=== PATIENT | male | born 1975 | race Caucasian/White ===

== ENCOUNTER 2020-06-22 21:45 | Inpatient (IN) | payer OTHER ==
--- OUTSIDE RECORDS SUMMARY | 2020-06-22 21:57 | XMS ---
:1975 Author Organization [facility] Support Name Relationship Address Phone [employer] Unavailable [address] [phone] [place] [address] RICARDO WOODS [address] [place] [address] Re-disclosure Warning The records that you are about to access may contain information from federally- assisted alcohol or drug abuse programs. If such information is present, then the following federally mandated warning applies: This information has been disclosed to you from records protected by federal confidentiality rules (42 CFR part 2). The federal rules prohibit you from making any further disclosure of this information unless further disclosure is expressly permitted by the written consent of the person to whom it pertains or as otherwise permitted by 42 CFR part 2. A general authorization for the release of medical or other information is NOT sufficient for this purpose. The Federal rules restrict any use of the information to criminally investigate or prosecute any alcohol or drug abuse patient.The records that you are about to access may contain highly sensitive health information, the redisclosure of which is protected by Article 27-F of the [facility] Public Health law. If you continue you may haveaccess to information: Regarding HIV / AIDS; Provided by facilities licensed or operated by the [facility] Office of Mental Health; or Provided by the [facility] Office for People With Developmental Disabilities. If such information is present, then the following [facility] mandated warning applies: This information has been disclosed to you from confidential records which are protected by state law. State law prohibits you from making any further disclosure of this information without the specific written consent of the person to whom it pertains, or as otherwise permitted by law. Any unauthorized further disclosure in violation of state law may result in a fine or correction sentence or both. A general authorization for the release of medical or other information is NOT sufficient authorization for further disclosure. Insurance Providers Payer name Policy type Policy ID Covered Covered alliance party's Policy P scooter / Coverage alliance party ID relationship to [employer] type giraldo [facility] [id number] MEDICAID COMM PLAN
[2020-06-22] MEDS ORDERED: KETOROLAC TROMETHAMINE 30 MG/1 ML VIAL IVPUSH ONE (22:41)
[2020-06-22] MEDS ORDERED: CEFAZOLIN 1 GM in DEXTROSE 5%-WATER - 50 ML IVPB ONE (22:47)
[2020-06-22] MEDS ORDERED: VANCOMYCIN 1 GM in D5W (PRE-DOCKED) 1,000 MG/250 ML IVPB ONE (22:49)
[2020-06-22] MEDS ORDERED: SODIUM CHLORIDE 0.9% 500 ML INFUS.BAG IV ONE (22:49)
[2020-06-22 23:00] LABS: BASO % 0.8 % (0-2.0); EOS % 0.8 % (0-4.5); HEMATOCRIT 45.8 % (35.4-49); HEMOGLOBIN 15.7 GM/dL (11.7-16.9); MCH 30.1 pg (25.7-33.7); MCHC 34.3 g/dl (32.0-35.9); MEAN CELL VOLUME 87.7 fl (80-96); MEAN PLT VOLUME 12.1 fl (7.5-11.1); MONO % 5.9 % (3.8-10.2); NEUT % 74.5 % (42.8-82.8); PLATELET COUNT 119 K/MM3 (134-434); RBC 5.22 M/mm3 (4.00-5.60); RDW 13.2 % (11.9-15.9); WHITE BLOOD COUNT 14.9 K/mm3 (4.0-10.0)
--- NOTE | 2020-06-22 23:10 | PDOC ---
History of Present Illness - General Chief Complaint: Abscess Boil Stated Complaint: WOUND History Source: Patient Exam Limitations: No Limitations - History of Present Illness Initial Comments: 06/22/20 23:04 Patient is a 45-year-old male with no past medical history here with complaints of right groin pain x7 days. The pain 8/10 sharp which is aggravated with walking, with no alleviating factor. Took Tramadol today with minimal relief. States he has had similar times in the past and was admitted for an abscess on his buttocks and near his groin in 2012. Patient's endorses fever yesterday, none today. Patient states he is having difficulty walking due to the pain. Denies nausea, vomiting. PMHX: as above PSOCHX: (+) cig ALL: NKDA GENERAL/CONSTITUTIONAL: [No fever or chills. No weakness. No weight change.] HEAD, EYES, EARS, NOSE AND THROAT: [No change in vision. No ear pain or di scharge. No sore throat.] CARDIOVASCULAR: [No chest pain or shortness of breath.] RESPIRATORY: [No cough, wheezing, or hemoptysis.] GASTROINTESTINAL: [No nausea, vomiting, diarrhea or constipation. No rectal bleeding.] GENITOURINARY: [No dysuria, frequency, or change in urination.] MUSCULOSKELETAL: [No joint or muscle swelling or pain. No neck or back pain.] SKIN AND BREASTS: [No rash or easy bruising.] NEUROLOGIC: [No headache, vertigo, loss of consciousness, or loss of sensation.] PSYCHIATRIC: [No depression or anxiety.] ENDOCRINE: [No increased thirst. No abnormal weight change.] HEMATOLOGIC/LYMPHATIC: [No anemia, easy bleeding, or history of blood clots.] ALLERGIC/IMMUNOLOGIC: [No hives or skin allergy. No latex allergy.] GENERAL: [The patient is awake, alert, and fully oriented, in moderate distress.] HEAD: [Normal with no signs of trauma.] EYES: [Pupils equal, round and reactive to light, extraocular movements intact, sclera anicteric, conjunctiva clear.] ENT: [Ears normal, nares patent, oropharynx clear without exudates. Moist mucous membranes.] NECK: [Normal range of motion, supple without lymphadenopathy, JVD, or masses.] LUNGS: [Breath sounds equal, clear to auscultation bilaterally. No wheezes, and no crackles.] HEART: [Regular rate and rhythm, normal S1 and S2 without murmur, rub.] ABDOMEN: [Soft, nontender, normoactive bowel sounds. No guarding, no rebound. No masses.] : Tender firm mass in the right groin, tender nodes in the right groin, erythema from medial aspect mid thigh extending to scrotal on the right EXTREMITIES: [Normal range of motion, no edema. No clubbing or cyanosis. No cords, erythema, or tenderness.] NEUROLOGICAL: [Cranial nerves II through XII grossly intact. Normal speech, normal gait.] PSYCH: [Normal mood, normal affect.] SKIN: [Warmth, (+) erythema medial aspect thigh to the groin, Dry, normal turgor, no rashes or lesions noted.] Past History - Medical History Allergies/Adverse Reactions: Allergies Allergy/AdvReac Type Severity Reaction Status Date / Time No Known Allergies Allergy Verified 06/22/20 21:49 Home Medications: Ambulatory Orders Clindamycin [Cleocin -] 300 mg PO TID #0 capsule 06/13/13 Oxycodone HCl/Acetaminophen [Percocet 5-325 mg Tablet -] 1 tab PO Q4H #20 tablet 06/13/13 COPD: No Diabetes: Yes - Psycho-Social/Smoking History Smoking Status: Yes Smoking History: Never smoked Number of Cigarettes Smoked Daily: 7 'Breaking Loose' booklet given: 06/11/13 - Substance Abuse Hx (Audit-C & DAST Scrn) How often the patient has a drink containing alcohol: Never Score: In Men: 4 or > Positive; In Women: 3 or > Positive: 0 Screen Result (Pos requires Nsg. Audit-10AR): Negative In the last yr the pt used illegal drug/Rx for NonMed reason: No Score: Yes response is considered Positive: 0 Screen Result (Positive result requires Nsg. DAST-10): Negative *Physical Exam - Vital Signs Last Vital Signs Temp Pulse Resp BP Pulse Ox 98.7 F 81 18 172/88 H 98 06/22/20 21:46 06/22/20 21:46 06/22/20 21:46 06/22/20 21:46 06/22/20 21:46 ED Treatment Course - LABORATORY CBC & Chemistry Diagram: 06/22/20 22:50 06/22/20 22:50 - RADIOLOGY Radiology Studies Ordered: Category Date Time Status PELVIS CT WITH CONTRAST [CT] Stat CT Scan 06/22/20 22:42 Ordered Medical Decision Making - Medical Decision Making 06/22/20 23:04 Patient is a 45-year-old male with no past medical history here with complaints of right groin pain x7 days, now pain 8/10. States he has had similar times in the past and was admitted for an abscess on his buttocks and near his groin in 2012. Patient's endorses fever yesterday, none today. Patient states he is having difficulty walking due to the pain. Denies nausea, vomiting. Patient has abscess to the right groin with surrounding cellulitis extending from the mid thigh up to the testicle on the right concerning for Kellie's. labs, Antibiotic, IV fluids, pain med, Admit to the hospital. 06/22/20 23:31 Patient endorsed to the overnight team pending disposition. Discharge - Discharge Information Problems reviewed: Yes Clinical Impression/Diagnosis: Abscess or cellulitis of groin Condition: Stable - Follow up/Referral - Patient Discharge Instructions - Post Discharge Activity
[2020-06-22 23:27] LABS: ALBUMIN 3.6 g/dl (3.4-5.0); BILIRUBIN,TOTAL 0.4 mg/dL (0.2-1); BLOOD UREA NITROGEN 10.9 mg/dL (7-18); POTASSIUM 3.8 mmol/L (3.5-5.1); TOT PROT 7.4 g/dl (6.4-8.2)
[2020-06-22] MEDS ORDERED: KETOROLAC TROMETHAMINE 30 MG/1 ML VIAL ONE (23:39)
[2020-06-22] MEDS ORDERED: VANCOMYCIN 1 GRAM (PRE-DOCKED) 1,000 MG/250 ML BAG IVPB ONE (23:39)
[2020-06-22] MEDS ORDERED: CEFAZOLIN 1 GM/D5W 1 GM/50 ML BAG ONE (23:39)
--- NOTE | 2020-06-22 23:48 | PDOC ---
*Physical Exam - Vital Signs Last Vital Signs Temp Pulse Resp BP Pulse Ox 98.1 F 72 20 150/93 98 06/23/20 02:49 06/23/20 02:49 06/23/20 02:49 06/23/20 02:49 06/23/20 02:49 <Lynette Barney - Last Filed: 06/23/20 03:40> - Vital Signs Last Vital Signs Temp Pulse Resp BP Pulse Ox 98.7 F 81 18 172/88 H 98 06/22/20 21:46 06/22/20 21:46 06/22/20 21:46 06/22/20 21:46 06/22/20 21:46 <Arnol Fox - Last Filed: 06/23/20 04:44> ED Treatment Course - LABORATORY CBC & Chemistry Diagram: 06/22/20 22:50 06/22/20 22:50 - ADDITIONAL ORDERS Additional order review: Laboratory Results 06/22/20 22:50 Sodium 134 L Potassium 3.8 Chloride 98 Carbon Dioxide 29 Anion Gap 6 L BUN 10.9 Creatinine 1.0 Est GFR (CKD-EPI)AfAm 104.15 Est GFR (CKD-EPI)NonAf 89.86 Random Glucose 360 H Calcium 9.0 Total Bilirubin 0.4 AST 12 L ALT 27 Alkaline Phosphatase 176 H C-Reactive Protein 5.9 H Total Protein 7.4 Albumin 3.6 06/22/20 22:50 RBC 5.22 MCV 87.7 MCHC 34.3 RDW 13.2 MPV 12.1 H Neutrophils % 74.5 Lymphocytes % 18.0 Monocytes % 5.9 Eosinophils % 0.8 Basophils % 0.8 D - Medications Given in the ED: ED Medications Discontinued Medications Generic Name Dose Route Start Last Admin Trade Name Freq PRN Reason Stop Dose Admin Cefazolin Sodium 1 gm/ 50 mls @ 100 mls/hr 06/22/20 22:47 06/22/20 23:59 Dextrose IVPB 06/22/20 23:16 100 mls/hr ONCE ONE Administration Ketorolac Tromethamine 30 mg 06/22/20 22:41 06/22/20 23:59 Toradol Injection - IVPUSH 06/22/20 22:42 30 mg ONCE ONE Administration Sodium Chloride 1,000 ml 06/22/20 22:49 06/22/20 23:59 Normal Saline - IV 06/22/20 22:50 1,000 ml ONCE ONE Administration Vancomycin HCl 1,000 mg 06/22/20 22:49 06/22/20 23:59 Vancomycin (Pre-Docked) IVPB 06/22/20 22:50 1,000 mg ONCE ONE Administration Protocol <Kinza Barneyreen - Last Filed: 06/23/20 03:40> - LABORATORY CBC & Chemistry Diagram: 06/22/20 22:50 06/22/20 22:50 - ADDITIONAL ORDERS Additional order review: Laboratory Results 06/22/20 22:50 Sodium 134 L Potassium 3.8 Chloride 98 Carbon Dioxide 29 Anion Gap 6 L BUN 10.9 Creatinine 1.0 Est GFR (CKD-EPI)AfAm 104.15 Est GFR (CKD-EPI)NonAf 89.86 Random Glucose 360 H Calcium 8.7 Total Bilirubin 0.4 AST 12 L ALT 27 Alkaline Phosphatase 176 H Total Protein 7.4 Albumin 3.6 06/22/20 22:50 RBC 5.22 MCV 87.7 MCHC 34.3 RDW 13.2 MPV 12.1 H Neutrophils % 74.5 Lymphocytes % 18.0 Monocytes % 5.9 Eosinophils % 0.8 Basophils % 0.8 D <Arnol Fox - Last Filed: 06/23/20 04:44> Medical Decision Making - Medical Decision Making 06/23/20 03:13 Patient Name: MONIQUE WOODS THIS IS A PRELIMINARY REPORT DATE OF SERVICE: 2020-06-23 00:16:09 IMAGES: [id number] EXAM: CT PELVIS WITHOUT CONTRAST AND CT PELVIS WITH CONTRAST HISTORY: Abscess. 45-Year-Old Male Poorly Controlled Diabetes Assess For a Right Groin Peroneal Infection Abscess COMPARISON: None. CONTRAST: 100 mL Omnipaque 350 intravenous contrast TECHNIQUE: Axial CT scan images of the pelvis are obtained before and after the administration of intravenous contrast. FINDINGS: Limited nondiagnostic precontrast and postcontrast axial images of the pelvis are obtained. Right kidney lower pole 5 mm nonobstructing nephrolithiasis is incompletely included within the cdpcv-fl-hxgk on axial image 1. Diverticulosis. Mild nonspecific lower rectal wall thickening most likely due to mild infectious or inflammatory proctitis. Sharath cified granulomas in the prostate. Moderate abnormal subcutaneous edema and fluid in the right groin and right perineum is incompletely included within the mlpum-ps-vcsc suspicious for phlegmon infect ion and an abscess of the perineum outside the fxlrc-ut-ycvl cannot be excluded. Bilateral groin lymph nodes may be reactive. Degenerative disc disease in the lower lumbar spine. Degenerative joint disease of the lower lumbar facets. Spinal canal and neural foramen narrowing in the lower lumbar spine. IMPRESSION: Moderate abnormal subcutaneous edema and fluid in the right groin and right perineum is incompletely included within the lsycy-no-jukp suspicious for phlegmon infection. Mild nonspecific lower rectal wall thickening most likely due to mild infectious or inflammatory proctitis. Limited nondiagnostic precontrast and postcontrast CT scan images of the pelvis with no routine coronal or sagittal images provided for interpretation. If the missing sagittal and coronal images of the noncontrast CT scan of the pelvis and with contrast CT scan of the pelvis are provided in the future then a addendum to this report can be made. Abscess of the perineum outside the wnjnx-it-mvdp or evidence of necrotizing fasciitis from gas-forming microorganisms outside the cinhj-qg-cyhb cannot be excluded. If there is a clinical concern for a drainable abscess fluid collection or other infection in the lower midline pelvis outside the hbojk-cb-aonn then further evaluation and workup with follow-up routine CT Lower Pelvis Including The Midline Lower Pelvis And Proximal Thighs Including The Soft Tissue Down To Below The Level Of The Air Gap Seen On The Stunt Double Image Between The Legs excluded on the this exam may be needed. 06/23/20 03:41 Pt will be admitted to med/surg; he will get a more complete CT scan as an inpatient. <Lynette Barney - Last Filed: 06/23/20 03:40> - Medical Decision Making 06/23/20 01:23 45M with no PMH p/w right groin pain x7 days. Informed that there was abscess in right groin with surrounding cellulitis from mid thigh to right testicle. Pending CT abd/pevlis to eval for Kellie's. Signed out from [facility]. Likely will be admitted to m/s. 06/23/20 04:[address] Admitted to m/s. <Arnol Fox - Last Filed: 06/23/20 04:44> Discharge <Lynette aBrney - Last Filed: 06/23/20 03:40> - Discharge Information Problems reviewed: Yes - Admission Yes <Arnol Fox - Last Filed: 06/23/20 04:44> - Discharge Information Clinical Impression/Diagnosis: Abscess or cellulitis of groin Condition: Stable
[2020-06-23 00:09] LABS: ERYTHROCYTE SEDIMENTATION RATE 13 mm/hr (0-10)
[2020-06-23 03:29] LABS: URINE APPEARANCE CLEAR; URINE BILIRUBIN NEGATIVE (NEGATIVE); URINE COLOR YELLOW; URINE KETONE NEGATIVE (NEGATIVE); URINE PROTEIN NEGATIVE (NEGATIVE)
[2020-06-23 03:30] LABS: URINE LEUK ESTERASE NEGATIVE (NEGATIVE); URINE NITRITE NEGATIVE (NEGATIVE); URINE UROBILINOGEN 0.2 mg/dL (0.2-1.0)
--- NOTE | 2020-06-23 04:17 | PN ---
Teaching Attending Note Name of Resident: Jose Antonio López ATTENDING PHYSICIAN STATEMENT I saw and evaluated the patient. I reviewed the resident's note and discussed the case with the resident. I agree with the resident's findings and plan as documented. SUBJECTIVE: Patient is a 45 year old man with a PMH of Groin and Buttock abscess who pr esents to the ER with complaints of right groin pain for 7 days. The pain is 8/10, sharp and is aggravated with walking, with no alleviating factor. Took Tramadol today with minimal relief. States he has had similar times in the past and was admitted for an abscess on his buttocks and near his groin in 2012. Patient had fever yesterday and is having difficulty walking due to the pain. Patient denies chest pain, shortness of breath, abdominal pain, headache, palpitations, dizziness, chills, nausea, vomiting, diarrhea, constipation, dysuria, frequency, urgency, melena, hematochezia or hematuria. Denies alcohol, tobacco or illicit drug use. No sick contacts or recent travels. Family history is unremarkable - no FH of DM. OBJECTIVE: Alert Vital Signs Period Temp Pulse Resp BP Sys/Anna Pulse Ox Last 24 Hr 98.1 F-98.7 F 72-81 18-20 150-172/88-93 98-98 HEENT: No Jaundice, eye redness or discharge, PERRLA, EOMI. Normocephalic, atraumatic. External ears are normal and hearing is grossly intact. No nasal discharge. Neck: Supple, nontender. No palpable adenopathy or thyromegaly. No JVD Chest: Good effort. Clear to auscultation and percussion. Heart: Regular. No S3, rub or murmur Abdomen: Not distended, soft, nontender and no HSM. No rebound or guarding. Normal bowel sounds. Ext: Peripheral pulses intact. No leg edema. Abscess in right groin with surrounding cellulitis from mid thigh to right testicle. Skin: Warm and dry. No petechiae, rash or ecchymosis. Neuro: Alert. Oriented x3. CN 2-12 grossly intact. Sensation grossly intact in all four extremities and DTR are symmetric. Psych: Appropriate mood and affect. Good insight. Home Medications Medication Instructions Recorded Clindamycin [Cleocin -] 300 mg PO TID #0 capsule 06/13/13 Oxycodone HCl/Acetaminophen 1 tab PO Q4H #20 tablet 06/13/13 [Percocet 5-325 mg Tablet -] Abnormal Lab Results 06/22/20 06/22/20 06/23/20 22:50 22:50 02:22 WBC 14.9 H Plt Count 119 L D MPV 12.1 H Absolute Neuts (auto) 11.1 H ESR 13 H Sodium 134 L Anion Gap 6 L Random Glucose 360 H AST 12 L Alkaline Phosphatase 176 H C-Reactive Protein 5.9 H Ur Specific [place] 1.063 H Current Medications Generic Name Dose Route Start Last Admin Trade Name Freq PRN Reason Stop Dose Admin Enoxaparin Sodium 40 mg 06/23/20 10:00 Lovenox - SQ DAILY TAWANDA ASSESSMENT AND PLAN: 1. Scrotal cellulitis/Groin abscess/New onset DM - CT scan of pelvis with IV co ntrast showed "Moderate abnormal subcutaneous edema and fluid in the right groin and right perineum is incompletely included within the jhwac-zz-pyhe suspicious for phlegmon infection. Mild nonspecific lower rectal wall thickening most likely due to mild infectious or inflammatory proctitis." CXR shows cardiomegaly with no evidence of acute lung disease. Viral testing for COVID-19 ordered and patient placed on airborne, droplet and contact isolation. ER staff prescribed IV Ancef, Ketorolac, IV Vancomycin and IV NS for the patient. 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 Consult ID/Surgery/Urology. Hyponatremia likely partly due to hyperglycemia. Will limit free water intake, give IV KCL before correcting hyperglycemia. EKG shows NSR at 76/minute and QTc 438 with no significant acute ischemic ST-T wave changes. Initial troponin is negative. Will get HbA1c, lipid profile and implement sliding scale insulin regimen. Provide comprehensive diabetes care with patient teaching and counseling about the importance of adherence to prescribed diabetes regimen, euglycemia, eye care and foot care. Consult Endocrine. Monitor BP closely since he may have undiagnosed hypertension. Will continue comprehensive care for all of patients comorbid conditions. 2. Obesity Counseled on the risks associated with obesity. Will provide patient all the necessary assistance, counseling and positive reinforcement to facilitate weight loss. Consult truck driver supervisor. 3. DVT prophylaxis - Lovenox 40 mg SQ q 24 hours. 4. Advance directives - Full code
--- NOTE | 2020-06-23 04:44 | HP ---
CHIEF COMPLAINT: Scrotal cellulitis PCP: denies HISTORY OF PRESENT ILLNESS: Patient is a 45 year old man without any past medical history who presents to the ER with complaints of kim pain for 7 days. The pain is 8/10 and sharp in nature. The patient reports the pain to be worse when walking and the pain is mildly relieved with tylenol. The patient reported having this same issue in 2012 where he received surgery for I&D for an abscess in his right buttock and kim. The patient endorses having a fever yesterday but cannot recall the temperature. The patient denies chest pain, shortness of breath, diaphoresis, dysuria, hematuria, diarrhea, or numbness/tingling in upper or lower extremities. The patient denies any knowledge of any past medical history, infections, or having any physicians. Recent Travel: denies PAST MEDICAL HISTORY: denies PAST SURGICAL HISTORY: surgical debridement of abscess on right buttock and groin 8 years ago Social History: Smokin cig/day for 25 years Alcohol: denies Drugs: denies Allergies No Known Allergies Allergy (Verified 06/22/20 21:49) HOME MEDICATIONS: Home Medications Medication Instructions Recorded Clindamycin [Cleocin -] 300 mg PO TID #0 capsule 06/13/13 Oxycodone HCl/Acetaminophen 1 tab PO Q4H #20 tablet 06/13/13 [Percocet 5-325 mg Tablet -] REVIEW OF SYSTEMS CONSTITUTIONAL: Absent: fever, chills, diaphoresis, generalized weakness, malaise, loss of appetite, weight change HEENT: Absent: rhinorrhea, nasal congestion, throat pain, throat swelling, difficulty swallowing, mouth swelling, ear pain, eye pain, visual changes CARDIOVASCULAR: Absent: chest pain, syncope, palpitations, irregular heart rate, lightheadedness, peripheral edema RESPIRATORY: Absent: cough, shortness of breath, dyspnea with exertion, orthopnea, wheezing, stridor, hemoptysis GASTROINTESTINAL: Absent: abdominal pain, abdominal distension, nausea, vomiting, diarrhea, constipation, melena, hematochezia GENITOURINARY: Scrotal and perenial pain with active erythema and cellulitis PHYSICAL EXAMINATION Vital Signs - 24 hr 06/22/20 06/23/20 21:46 02:49 Temperature 98.7 F 98.1 F Pulse Rate 81 Pulse Rate [ 72 Left Radial] Respiratory 18 20 Rate Blood Pressure 172/88 H Blood Pressure 150/93 [Left Arm] O2 Sat by Pulse 98 98 Oximetry (%) GENERAL: Awake, alert, and fully oriented, in no acute distress. HEAD: Normal with no signs of trauma. LUNGS: Breath sounds equal, clear to auscultation bilaterally. No wheezes, and no crackles. No accessory muscle use. HEART: Regular rate and rhythm, normal S1 and S2 without murmur, rub or gallop. ABDOMEN: Soft, nontender, not distended, normoactive bowel sounds, no guarding, no rebound, no masses. No hepatomegaly or splenomegaly. LOWER EXTREMITIES: 2+ pulses, warm, well-perfused. No calf tenderness. No peripheral edema. : Scrotal and perenial pain with active erythema and cellulitis Laboratory Results - last 24 hr 06/22/20 06/22/20 06/23/20 22:50 22:50 02:22 WBC 14.9 H RBC 5.22 Hgb 15.7 Hct 45.8 MCV 87.7 MCH 30.1 MCHC 34.3 RDW 13.2 Plt Count 119 L D MPV 12.1 H Absolute Neuts (auto) 11.1 H Neutrophils % 74.5 Lymphocytes % 18.0 Monocytes % 5.9 Eosinophils % 0.8 Basophils % 0.8 D Nucleated RBC % 0 ESR 13 H Sodium 134 L Potassium 3.8 Chloride 98 Carbon Dioxide 29 Anion Gap 6 L BUN 10.9 Creatinine 1.0 Est GFR (CKD-EPI)AfAm 104.15 Est GFR (CKD-EPI)NonAf 89.86 Random Glucose 360 H Calcium 9.0 Total Bilirubin 0.4 AST 12 L ALT 27 Alkaline Phosphatase 176 H C-Reactive Protein 5.9 H Total Protein 7.4 Albumin 3.6 Urine Color Yellow Urine Appearance Clear Urine pH 5.0 Ur Specific [place] 1.063 H Urine Protein Negative Urine Glucose (UA) >=1000 mg/dl Urine Ketones Negative Urine Blood Negative Urine Nitrite Negative Urine Bilirubin Negative Urine Urobilinogen 0.2 Ur Leukocyte Esterase Negative ASSESSMENT/PLAN: Patient is a 45 year old man without any past medical history who presents to the ER with complaints of ikm pain for 7 days. #Cellulitis of the scrotum and perenium - Elevated inflamatory markers and white blood cell count is in relation to the inflammation/infection of the scrotal sac and perenium - Patient will be treated with emperic antibiotics zosyn and vancomycin) this will be the second dose with the first being in the emergency department - further antibiotic management of the cellulitis will be managed with infectious disease consultation (Dr. Santillan) - the area should be irrigated and debrided - will consult surgery (Dr. Loja) #Undiagnosed type 2 diabetes - A1C - will need to follow up with PCP after discharge - protein to creat ratio has been ordered. to see if patient can be started on JAMEEL due to diabetes #Hypertension - Will continually monitor vitals for optimal BP management - LIPID panel - will watch BP trending - Assess need to start lisinopril after Protein:Cr come back - check for proteinuria #FEN - IVF normal saline - low sodium diet #DVT ppx Lovenox Sq Family Medical History Family History: As Documented Visit type - Emergency Visit Emergency Visit: Yes ED Registration Date: 06/23/20 Care time: The patient presented to the Emergency Department on the above date and was hospitalized for further evaluation of their emergent condition. - New Patient This patient is new to me today: No - Critical Care Critical Care patient: No ATTENDING PHYSICIAN STATEMENT I saw and evaluated the patient. I reviewed the resident's note and discussed the case with the resident. I agree with the resident's findings and plan as documented. SUBJECTIVE: OBJECTIVE: ASSESSMENT AND PLAN:
--- OUTSIDE RECORDS SUMMARY | 2020-06-23 04:48 | XMS ---
:1975 [facility] Support Name Relationship Address Phone [employer] Unavailable [address] [phone] [place] [address] RICARDO WOODS [address] [place] [address] Re-disclosure Warning The records that you are [...] is protected by Article 27-F of the [facility] Public Health law. If you continue you may haveaccess to information: Regarding HIV / AIDS; Provided by facilities licensed or operated by the [facility] Office of Mental Health; or Provided by the [facility] Office for People With Developmental Disabilities. If such information is present, then the following [facility] mandated warning applies: This information has [...] law may result in a fine or detention sentence or both. A general authorization for the release of medical or other information is NOT sufficient authorization for further disclosure. Insurance Providers Payer name Policy type Policy ID Covered Covered republican's Policy P scooter / Coverage republican ID relationship to Giraldo [employer] ormation type giraldo [facility] [id number] 1 MEDICAID COMM PLAN
[2020-06-23] MEDS ORDERED: VANCOMYCIN 1 GM in D5W (PRE-DOCKED) 1,000 MG/250 ML IVPB ONE (06:30)
[2020-06-23] MEDS ORDERED: PIPERACILLIN/TAZOB 4.5 GM 4.5 GM/100 ML BAG IVPB ONE (06:37)
[2020-06-23] MEDS: PIPERACILLIN/TAZOB 4.5 GM 4.5 GM in DEXTROSE 5%-WATER 100 ML IVPB SCH ×4 (06:44→18:46)
[2020-06-23] MEDS: INSULIN SLIDING SCALE (NOVOLOG) 1 VIAL SQ SCH ×4 (07:45→22:54)
[2020-06-23] MEDS ORDERED: PIPERACILLIN/TAZOB 2.25 GM 2.25 GM in DEXTROSE 5%-WATER - 50 ML IVPB ONE (09:00)
[2020-06-23] MEDS ORDERED: VANCOMYCIN HCL 1,500 MG in DEXTROSE 5%-WATER - 500 ML IVPB ONE ×2 (10:00→10:45)
[2020-06-23] MEDS: ENOXAPARIN NA (PORCINE) 40 MG/0.4 ML DISP.SYRIN SQ SCH (10:38)
--- NOTE | 2020-06-23 10:43 | CON.ID ---
Consult Consult Specialty:: infectious disease Referred by:: hospitalist service Reason for Consultation:: groin pain - History of Present Illness Chief Complaint: groin pain for 7 days History of Present Illness: 45 yo man admitted overnight via ER he presents with oe week of worsening right groin pain- started as a pimple and has gotten worse no fevers or chills tried acetominophen for pain no diarrhea no cough no sob nodifficulty urinating had an episode 7 years ago with a right thigh and buttock abscess- no cultures sent at that time has not recurred since denies diabetes pelvic ct in ED- no air noted +soft tissue swelling - History Source History Provided By: Patient, Medical Record Limitations to Obtaining History: No Limitations - Past Medical History Dermatology: Yes: Other (prior abscesses in 2012) - Past Surgical History Additional Surgical History: incision and drainage of abscesses - Alcohol/Substance Use Hx Alcohol Use: No - Smoking History Smoking history: Never smoked Aproximately how many cigarettes per day: 7 - Social History Usual Living Arrangement: With Spouse ADL: Independent 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 Place of : Other ([employer] [facility]) History of Recent Travel: No Home Medications - Allergies Allergies/Adverse Reactions: Allergies Allergy/AdvReac Type Severity Reaction Status Date / Time No Known Allergies Allergy Verified 06/22/20 21:49 - Home Medications Home Medications: Ambulatory Orders Clindamycin [Cleocin -] 300 mg PO TID #0 capsule 06/13/13 Oxycodone HCl/Acetaminophen [Percocet 5-325 mg Tablet -] 1 tab PO Q4H #20 tablet 06/13/13 Family Medical History Family History: Denies Review of Systems - Review of Systems Constitutional: denies: Chills Eyes: reports: No Symptoms HENT: reports: No Symptoms Neck: reports: No Symptoms Cardiovascular: reports: No Symptoms Respiratory: reports: No Symptoms. denies: Cough, SOB Gastrointestinal: reports: No Symptoms Genitourinary: reports: No Symptoms Physical Exam Vital Signs: Vital Signs Temperature 98.8 F 06/23/20 10:11 Pulse Rate 72 06/23/20 10:11 Respiratory Rate 18 06/23/20 10:11 Blood Pressure 171/92 H 06/23/20 10:11 O2 Sat by Pulse Oximetry (%) 97 06/23/20 10:11 Constitutional: Yes: Well Nourished, No Distress, Calm Eyes: Yes: Conjunctiva Clear, EOM Intact HENT: Yes: Atraumatic, Normocephalic Neck: Yes: Supple, Trachea Midline Cardiovascular: Yes: Regular Rate and Rhythm Respiratory: Yes: Regular, CTA Bilaterally Gastrointestinal: Yes: Normal Bowel Sounds, Soft ...Rectal Exam: Yes: Deferred Renal/: Yes: Other (right groin swelling with induration, no scrotal swelling, no penile swelling no perineal tenderness no crepitance) Extremities: Yes: WNL Edema: No Psychiatric: Yes: Alert, Oriented Labs: CBC, BMP 06/22/20 22:50 06/22/20 22:50 Imaging - Results Chest X-ray: Image Reviewed Cat Scan: Report Reviewed Problem List - Problems (1) Abscess or cellulitis of groin Code(s): KLL2248 - (2) New onset type 2 diabetes mellitus Code(s): E11.9 - TYPE 2 DIABETES MELLITUS WITHOUT COMPLICATIONS Assessment/Plan continue vancomycin and zosyn- suspect staph as it appears to have started as a pimple- no signs clinically of perineal involvement awaiting urology evaluation patient is NPO for possible operaative debridement will need extensive diabetic education as well check hgb aic vancomycin trough before fourth dose
[2020-06-23] MEDS ORDERED: PIPERACILLIN/TAZOB 4.5 GM 4.5 GM in DEXTROSE 5%-WATER 100 ML IVPB SCH (12:00)
[2020-06-23 12:02] LABS: BASO % 0.4 % (0-2.0); EOS % 0.8 % (0-4.5); HEMATOCRIT 43.6 % (35.4-49); HEMOGLOBIN 14.8 GM/dL (11.7-16.9); LYMPH % 17.2 % (8-40); MCH 29.6 pg (25.7-33.7); MCHC 33.9 g/dl (32.0-35.9); MEAN CELL VOLUME 87.5 fl (80-96); MONO % 6.6 % (3.8-10.2); PLATELET COUNT 106 K/MM3 (134-434); RBC 4.98 M/mm3 (4.00-5.60); RDW 13.3 % (11.9-15.9); WHITE BLOOD COUNT 11.2 K/mm3 (4.0-10.0)
[2020-06-23 12:08] LABS: INR 1.19 (0.83-1.09); PROTHROMBIN TIME (PATIENT) 14.1 SEC (9.7-13.0)
[2020-06-23 12:34] LABS: ALBUMIN 3.3 g/dl (3.4-5.0); BILIRUBIN,TOTAL 0.8 mg/dL (0.2-1); BLOOD UREA NITROGEN 7.9 mg/dL (7-18); CALCIUM 8.7 mg/dL (8.5-10.1); CREATININE 0.6 mg/dL (0.55-1.3); POTASSIUM 3.7 mmol/L (3.5-5.1); TOT PROT 6.6 g/dl (6.4-8.2)
[2020-06-23] MEDS ORDERED: amLODIPine BESYLATE 2.5 MG TABLET (FP) PO SCH (12:45)
[2020-06-23] MEDS ORDERED: PIPERACILLIN/TAZOBACTAM 4.5 GM VIAL IVPB ONE ×2 (13:15→18:39)
[2020-06-23] MEDS ORDERED: INSULIN (NOVOLOG) ASPART 100 UNITS/ML 10ML VIAL ONE (13:15)
[2020-06-23] MEDS ORDERED: DEXTROSE 5%-WATER 100 ML IVPB ONE ×2 (13:16→18:39)
--- NOTE | 2020-06-23 13:26 | PN ---
Teaching Attending Note Name of Resident: Colin Pettit ATTENDING PHYSICIAN STATEMENT I saw and evaluated the patient. I reviewed the resident's note and discussed the case with the resident. I agree with the resident's findings and plan as documented. SUBJECTIVE: Feeling okay some discomfort R upper thigh/groin. No scrotal pain/penile discharge. No fever/chills. OBJECTIVE: Afebrile, Hemodynamically Stable. Last Vital Signs Temp Pulse Resp BP Pulse Ox 98.8 F 72 18 171/92 H 97 06/23/20 10:11 06/23/20 10:11 06/23/20 10:11 06/23/20 10:11 06/23/20 10:11 HEENT - Atraumatic, normocephalic. Heart - S1, S2, RRR Lungs - clear to auscultation Abdomen - Soft, non-tender. Bowel Sounds normal Extremities - no edema, no calf tenderness. MS - R medial thigh/groin swelling/induration/tenderness, possible perineal involvement. Scrotum non-swollen, non-tender. Neuro - AAO x 3. Tone/Power normal. Laboratory Results - last 24 hr 06/22/20 06/22/20 06/23/20 22:50 22:50 02:22 WBC 14.9 H RBC 5.22 Hgb 15.7 Hct 45.8 MCV 87.7 MCH 30.1 MCHC 34.3 RDW 13.2 Plt Count 119 L D MPV 12.1 H Absolute Neuts (auto) 11.1 H Neutrophils % 74.5 Lymphocytes % 18.0 Monocytes % 5.9 Eosinophils % 0.8 Basophils % 0.8 D Nucleated RBC % 0 ESR 13 H PT with INR INR Sodium 134 L Potassium 3.8 Chloride 98 Carbon Dioxide 29 Anion Gap 6 L BUN 10.9 Creatinine 1.0 Est GFR (CKD-EPI)AfAm 104.15 Est GFR (CKD-EPI)NonAf 89.86 POC Glucometer Random Glucose 360 H Calcium 9.0 Total Bilirubin 0.4 AST 12 L ALT 27 Alkaline Phosphatase 176 H C-Reactive Protein 5.9 H Total Protein 7.4 Albumin 3.6 Triglycerides Cholesterol Total LDL Cholesterol HDL Cholesterol Urine Color Yellow Urine Appearance Clear Urine pH 5.0 Ur Specific [place] 1.063 H Urine Protein Negative Urine Glucose (UA) >=1000 mg/dl Urine Ketones Negative Urine Blood Negative Urine Nitrite Negative Urine Bilirubin Negative Urine Urobilinogen 0.2 Ur Leukocyte Esterase Negative 06/23/20 06/23/20 06/23/20 07:28 10:55 10:55 WBC 11.2 H RBC 4.98 Hgb 14.8 Hct 43.6 MCV 87.5 MCH 29.6 MCHC 33.9 RDW 13.3 Plt Count 106 L MPV 13.0 H Absolute Neuts (auto) 8.4 H Neutrophils % 75.0 Lymphocytes % 17.2 Monocytes % 6.6 Eosinophils % 0.8 Basophils % 0.4 Nucleated RBC % 0 ESR PT with INR INR Sodium 136 Potassium 3.7 Chloride 102 Carbon Dioxide 27 Anion Gap 7 L BUN 7.9 Creatinine 0.6 Est GFR (CKD-EPI)AfAm 139.75 Est GFR (CKD-EPI)NonAf 120.58 POC Glucometer 296 Random Glucose 299 H Calcium 8.7 Total Bilirubin 0.8 AST 10 L ALT 22 Alkaline Phosphatase 149 H C-Reactive Protein Total Protein 6.6 Albumin 3.3 L Triglycerides 122 Cholesterol 180 Total LDL Cholesterol 132 H HDL Cholesterol 36 L Urine Color Urine Appearance Urine pH Ur Specific [place] Urine Protein Urine Glucose (UA) Urine Ketones Urine Blood Urine Nitrite Urine Bilirubin Urine Urobilinogen Ur Leukocyte Esterase 06/23/20 06/23/20 10:55 12:34 WBC RBC Hgb Hct MCV MCH MCHC RDW Plt Count MPV Absolute Neuts (auto) Neutrophils % Lymphocytes % Monocytes % Eosinophils % Basophils % Nucleated RBC % ESR PT with INR 14.10 H INR 1.19 H Sodium Potassium Chloride Carbon Dioxide Anion Gap BUN Creatinine Est GFR (CKD-EPI)AfAm Est GFR (CKD-EPI)NonAf POC Glucometer 350 Random Glucose Calcium Total Bilirubin AST ALT Alkaline Phosphatase C-Reactive Protein Total Protein Albumin Triglycerides Cholesterol Total LDL Cholesterol HDL Cholesterol Urine Color Urine Appearance Urine pH Ur Specific [place] Urine Protein Urine Glucose (UA) Urine Ketones Urine Blood Urine Nitrite Urine Bilirubin Urine Urobilinogen Ur Leukocyte Esterase Current Medications Generic Name Dose Route Start Last Admin Trade Name Freq PRN Reason Stop Dose Admin Amlodipine Besylate 2.5 mg 06/23/20 12:45 Norvasc - PO DAILY TAWANDA Enoxaparin Sodium 40 mg 06/23/20 10:00 06/23/20 10:38 Lovenox - SQ 40 mg DAILY [facility] Administration Piperacillin Sod/Tazobactam 100 mls @ 200 mls/hr 06/23/20 10:15 Sod 4.5 gm/ Dextrose IVPB Q8H-IV TAWANDA Protocol Vancomycin HCl 1,250 mg/ 250 mls @ 166.667 mls/hr 06/23/20 22:30 Dextrose IVPB BID@1030,2230 [facility] Protocol Insulin Aspart 1 vial 06/23/20 07:00 06/23/20 07:45 Novolog Vial Sliding Scale - SQ 6 unit ACHS [facility] Administration Protocol Home Medications Medication Instructions Recorded Clindamycin [Cleocin -] 300 mg PO TID #0 capsule 06/13/13 Oxycodone HCl/Acetaminophen 1 tab PO Q4H #20 tablet 06/13/13 [Percocet 5-325 mg Tablet -] ASSESSMENT/PLAN 45 year old male with no significant PMH, presents with R groin pain/swelling/tenderness, found to have acute cellulitis and newly diagnosed DM2. 1. R Groin/proximal medial thigh Cellulutitis, possible perineal involvement. Afebrle, Leukocytosis improving. Blood Cx pending. CT Pelvis - subcutaneous edema R groin extending to medial aspect of mid thigh. Afebrile Hemodynamically stable - Continue Zosyn/Vanco as per ID eval. Blood Cx pending. Surgery and Urology eval requested. 2. Newly diagnosed DM 2 - FS > 300, will send A1C Maintain on Novolog sliding scale during in-patient stay. If A1C elevated, will consider Endocrine consult depending on A1C level. 3. HTN, new diagnosis - BP on high side, Norvasc 2.5mg started. 4. R Renal lower pole Calculus, non-obstructing - for Urology out-patient referral. 5. Chronic Thrombocytopenia, since 2012 on [facility] records - no bruising/bleeding - Hematology referral as out-patient. DVT Px - Lovenox SQ
--- NOTE | 2020-06-23 14:03 | EKG ---
Test Reason : Blood Pressure : / mmHG Vent. Rate : 076 BPM Atrial Rate : 076 BPM P-R Int : 162 ms QRS Dur : 100 ms QT Int : 390 ms P-R-T Axes : 026 -27 020 degrees QTc Int : 438 ms NORMAL SINUS RHYTHM NORMAL ECG WHEN COMPARED WITH ECG OF 11-JUN-2013 02:01, QRS AXIS SHIFTED LEFT VENT. RATE HAS INCREASED Confirmed by NELLY KERR MD ([id number]) on 06/23/2020 2:02:41 PM Referred By: Confirmed By:NELLY KERR MD
--- NOTE | 2020-06-23 15:30 | PN ---
Physical Exam: SUBJECTIVE: Patient seen and examined at bedside. No acute events reported overnight. Reporting mild groin pain. OBJECTIVE: Vital Signs Period Temp Pulse Resp BP Sys/Anna Pulse Ox Last 24 Hr 98.1 F-98.9 F 60-84 18-20 148-172/74-96 97-98 GENERAL: AAOx3, in no acute distress; laying in bed HEENT: NCAT, PERRLA, EOMI, sclera anicteric, conjunctiva clear, oropharynx clear w/o exudates. MMM. NECK: Normal ROM, supple, no lymphadenopathy, JVD, or masses LUNGS: CTABL no wheezes/ rhonchi/ rales. No distress, speaks in full sentences. No increased work of breathing. HEART: RRR, normal S1 S2, no M/R/G, peripheral pulses 2+ and equal b/l ABDOMEN: Soft, NTND, + BS. No guarding or rebound. No hepatomegaly or splenomegaly. MSK: ROM WNL EXTREMITIES: R medial thigh apex/groin swelling/induration with tenderness to palptation, cannot rule out perineal involvement. Scrotum non-swollen, non- tender to palptation. NEUROLOGICAL: CN II-XII intact. Normal speech, normal gait, no focal sensorimotor deficits. SKIN: Warm, Dry, normal turgor, no rashes or lesions noted Laboratory Results - last 24 hr CBC, BMP 06/23/20 10:55 06/23/20 10:55 06/22/20 06/22/20 06/23/20 22:50 22:50 02:22 WBC 14.9 H RBC 5.22 Hgb 15.7 Hct 45.8 MCV 87.7 MCH 30.1 MCHC 34.3 RDW 13.2 Plt Count 119 L D MPV 12.1 H Absolute Neuts (auto) 11.1 H Neutrophils % 74.5 Lymphocytes % 18.0 Monocytes % 5.9 Eosinophils % 0.8 Basophils % 0.8 D Nucleated RBC % 0 ESR 13 H PT with INR INR Sodium 134 L Potassium 3.8 Chloride 98 Carbon Dioxide 29 Anion Gap 6 L BUN 10.9 Creatinine 1.0 Est GFR (CKD-EPI)AfAm 104.15 Est GFR (CKD-EPI)NonAf 89.86 POC Glucometer Random Glucose 360 H Hemoglobin A1c % Calcium 9.0 Total Bilirubin 0.4 AST 12 L ALT 27 Alkaline Phosphatase 176 H C-Reactive Protein 5.9 H Total Protein 7.4 Albumin 3.6 Triglycerides Cholesterol Total LDL Cholesterol HDL Cholesterol Urine Color Yellow Urine Appearance Clear Urine pH 5.0 Ur Specific [place] 1.063 H Urine Protein Negative Urine Glucose (UA) >=1000 mg/dl Urine Ketones Negative Urine Blood Negative Urine Nitrite Negative Urine Bilirubin Negative Urine Urobilinogen 0.2 Ur Leukocyte Esterase Negative 06/23/20 06/23/20 06/23/20 07:28 10:55 10:55 WBC 11.2 H RBC 4.98 Hgb 14.8 Hct 43.6 MCV 87.5 MCH 29.6 MCHC 33.9 RDW 13.3 Plt Count 106 L MPV 13.0 H Absolute Neuts (auto) 8.4 H Neutrophils % 75.0 Lymphocytes % 17.2 Monocytes % 6.6 Eosinophils % 0.8 Basophils % 0.4 Nucleated RBC % 0 ESR PT with INR INR Sodium 136 Potassium 3.7 Chloride 102 Carbon Dioxide 27 Anion Gap 7 L BUN 7.9 Creatinine 0.6 Est GFR (CKD-EPI)AfAm 139.75 Est GFR (CKD-EPI)NonAf 120.58 POC Glucometer 296 Random Glucose 299 H Hemoglobin A1c % Calcium 8.7 Total Bilirubin 0.8 AST 10 L ALT 22 Alkaline Phosphatase 149 H C-Reactive Protein Total Protein 6.6 Albumin 3.3 L Triglycerides 122 Cholesterol 180 Total LDL Cholesterol 132 H HDL Cholesterol 36 L Urine Color Urine Appearance Urine pH Ur Specific [place] Urine Protein Urine Glucose (UA) Urine Ketones Urine Blood Urine Nitrite Urine Bilirubin Urine Urobilinogen Ur Leukocyte Esterase 06/23/20 06/23/20 06/23/20 10:55 10:55 12:34 WBC RBC Hgb Hct MCV MCH MCHC RDW Plt Count MPV Absolute Neuts (auto) Neutrophils % Lymphocytes % Monocytes % Eosinophils % Basophils % Nucleated RBC % ESR PT with INR 14.10 H INR 1.19 H Sodium Potassium Chloride Carbon Dioxide Anion Gap BUN Creatinine Est GFR (CKD-EPI)AfAm Est GFR (CKD-EPI)NonAf POC Glucometer 350 Random Glucose Hemoglobin A1c % 10.9 H Calcium Total Bilirubin AST ALT Alkaline Phosphatase C-Reactive Protein Total Protein Albumin Triglycerides Cholesterol Total LDL Cholesterol HDL Cholesterol Urine Color Urine Appearance Urine pH Ur Specific [place] Urine Protein Urine Glucose (UA) Urine Ketones Urine Blood Urine Nitrite Urine Bilirubin Urine Urobilinogen Ur Leukocyte Esterase 09/28/20 14:03 WBC RBC Hgb Hct MCV MCH MCHC RDW Plt Count MPV Absolute Neuts (auto) Neutrophils % Lymphocytes % Monocytes % Eosinophils % Basophils % Nucleated RBC % ESR PT with INR INR Sodium Potassium Chloride Carbon Dioxide Anion Gap BUN Creatinine Est GFR (CKD-EPI)AfAm Est GFR (CKD-EPI)NonAf POC Glucometer 260 Random Glucose Hemoglobin A1c % Calcium Total Bilirubin AST ALT Alkaline Phosphatase C-Reactive Protein Total Protein Albumin Triglycerides Cholesterol Total LDL Cholesterol HDL Cholesterol Urine Color Urine Appearance Urine pH Ur Specific [place] Urine Protein Urine Glucose (UA) Urine Ketones Urine Blood Urine Nitrite Urine Bilirubin Urine Urobilinogen Ur Leukocyte Esterase Active Medications Generic Name Dose Route Start Last Admin Trade Name Freq PRN Reason Stop Dose Admin Amlodipine Besylate 2.5 mg 06/23/20 12:45 06/23/20 15:15 Norvasc - PO 2.5 mg DAILY TAWANDA Administration Enoxaparin Sodium 40 mg 06/23/20 10:00 06/23/20 10:38 Lovenox - SQ 40 mg DAILY TAWANDA Administration Piperacillin Sod/Tazobactam 100 mls @ 200 mls/hr 06/23/20 10:15 06/23/20 1 3:54 Sod 4.5 gm/ Dextrose IVPB 200 mls/hr Q8H-IV TAWANDA Administration Protocol Vancomycin HCl 1,250 mg/ 250 mls @ 166.667 mls/hr 06/23/20 22:30 Dextrose IVPB BID@1030,2230 TAWANDA Protocol Insulin Aspart 1 vial 06/23/20 07:00 06/23/20 13:31 Novolog Vial Sliding Scale - SQ 8 unit ACHS TAWANDA Administration Protocol ASSESSMENT/PLAN: 45 y/o M with with no significant PMH presenting with R groin pain/swelling/tenderness for 7 days. Admitted for acute cellulitis. #R Groin/proximal medial thigh Cellulitis -CT Pelvis - subcutaneous edema R groin extending to medial aspect of upper mid thigh -cannot rule out perineal involvement -VSS stable -leukocytosis improving -c/w Vanc/Zosyn as per ID -Blood Cx pending -Surgery consult: Dr. Russell deferred to urology due to proximity to -Urology consult: Dr. Azar does not want surgical intervention at this time #DM 2 - newly diagnosed during this visit -fasting sugar today > 300 -A1c: 10.9 -ISS w/ BGM -pt will need diabetes counseling at d/c #HTN -Norvasc 2.5mg started today -patient has no history of HTN #R Renal lower pole Calculus -incidental finding -non-obstructing -Urology out-patient f/u #Chronic Thrombocytopenia -no bruising or bleeding noted today -no workup needed at this time -continue to monitor -heme f/u outpt #FEN -no standing fluids -monitor lytes; replete PRN -diabetic sodium controlled diet #Ppx -DVT: Lovenox SQ Visit type - Emergency Visit Emergency Visit: No - New Patient This patient is new to me today: Yes Date on this admission: 06/23/20 - Critical Care Critical Care patient: No - Discharge Referral Referred to [facility] Med P.C.: No ATTENDING PHYSICIAN STATEMENT I saw and evaluated the patient. I reviewed the resident's note and discussed the case with the resident. I agree with the resident's findings and plan as documented. SUBJECTIVE: OBJECTIVE: ASSESSMENT AND PLAN:
--- NOTE | 2020-06-23 18:11 | CON.GU ---
Consult Consult Specialty:: urology Reason for Consultation:: cellulitis of right inner thign - History of Present Illness Chief Complaint: thigh cellulitis History of Present Illness: Patient with seven day history of right inner thigh pain. Denies fever, chills, or drainage from groin. CT scan showed no evidence of gas in subcutaneous tissue. patient with WBC of 11.2 and is afebrile. 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 History of Recent Travel: No Home Medications - Allergies Allergies/Adverse Reactions: Allergies Allergy/AdvReac Type Severity Reaction Status Date / Time No Known Allergies Allergy Verified 06/22/20 21:49 - Home Medications Home Medications: Ambulatory Orders Clindamycin [Cleocin -] 300 mg PO TID #0 capsule 06/13/13 Oxycodone HCl/Acetaminophen [Percocet 5-325 mg Tablet -] 1 tab PO Q4H #20 tablet 06/13/13 Family Medical History Family History: Denies Physical Exam- Vital Signs: Vital Signs Temperature 98.9 F 06/23/20 13:31 Pulse Rate 84 06/23/20 13:31 Respiratory Rate 18 06/23/20 13:31 Blood Pressure 148/74 06/23/20 13:31 O2 Sat by Pulse Oximetry (%) 97 06/23/20 10:11 Constitutional: Yes: Well Nourished, No Distress, Calm Eyes: Yes: WNL, Conjunctiva Clear, EOM Intact HENT: Yes: WNL, Atraumatic, Normocephalic Neck: Yes: WNL, Supple, Trachea Midline Cardiovascular: Yes: Regular Rate and Rhythm Respiratory: Yes: Regular Gastrointestinal: Yes: WNL, Normal Bowel Sounds, Soft Renal/: Yes: WNL Kidneys: Yes: WNL Pelvis: Yes: WNL, Bladder Non Palpable Testicles: Yes: WNL Scrotum: Yes: WNL Penis: Yes: WNL Prostate Exam: Yes: Deferred (right inner thigh with minimal tendernes and erythema without drainage,crepitus, or foul smelling tissue. No fluctuance noted in perineum.) Labs: CBC, BMP 06/23/20 10:55 06/23/20 10:55 Assessment/Plan imp right groin cellulitis right renal stone plan continue antibiotics will follow up as outpatient
--- NOTE | 2020-06-23 18:54 | CONSULT ---
Consult Consult Specialty:: Surgery Reason for Consultation:: RIGHT INGUINAL CELLULITIS - History of Present Illness Chief Complaint: RIGHT INGUINOFEMORAL PAIN History of Present Illness: Patient is a 45 year old man without any past medical history who presents to the ER with complaints of kim pain for 7 days. The pain is 8/10 and sharp in nature. The patient reports the pain to be worse when walking and the pain is mildly relieved with tylenol. The patient reported having this same issue in 2013 where he received surgery for I&D for an abscess in his right buttock and kim. The patient endorses having a fever yesterday but cannot recall the temp erature. The patient denies chest pain, shortness of breath, diaphoresis, dysuria, hematuria, diarrhea, or numbness/tingling in upper or lower extremities. The patient denies any knowledge of any past medical history, infections, or having any physicians. 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 History of Recent Travel: No Home Medications - Allergies Allergies/Adverse Reactions: Allergies Allergy/AdvReac Type Severity Reaction Status Date / Time No Known Allergies Allergy Verified 06/22/20 21:49 - Home Medications Home Medications: Ambulatory Orders Insulin (Levemir) [Levemir Vial] 25 unit SQ AM #1 vial 06/24/20 Metformin HCl [Glucophage] 500 mg PO BID 15 Days #30 tablet 06/24/20 Sitagliptin Phosphate [Januvia] 100 mg PO DAILY 15 Days #15 tablet 06/24/20 Family Medical History Family History: Denies Review of Systems - Review of Systems Constitutional: reports: No Symptoms Eyes: reports: No Symptoms HENT: reports: No Symptoms Neck: reports: No Symptoms Cardiovascular: reports: No Symptoms Respiratory: reports: No Symptoms Gastrointestinal: reports: No Symptoms, Other (RIGHT INGUINOFEMORAL PAIN) Genitourinary: reports: No Symptoms Musculoskeletal: reports: No Symptoms Physical Exam Vital Signs: Vital Signs Temperature 98.9 F 06/23/20 18:00 Pulse Rate 85 06/23/20 18:00 Respiratory Rate 18 06/23/20 18:00 Blood Pressure 133/81 06/23/20 18:00 O2 Sat by Pulse Oximetry (%) 97 06/23/20 18:00 Constitutional: Yes: Well Nourished, No Distress HENT: Yes: Normocephalic Neck: Yes: Supple Cardiovascular: Yes: Regular Rate and Rhythm Respiratory: Yes: CTA Bilaterally Gastrointestinal: Yes: Abdomen, Obese ...Rectal Exam: Yes: Deferred Renal/: Yes: WNL Integumentary: Yes: Other (6 X 3 CM TENDER LINEAR INDURATION AT RIGHT INGUINOFEMORAL AREA WITH QUESTIONABLE FLUCTUANCE) Labs: CBC, BMP 06/23/20 10:55 06/23/20 10:55 Imaging - Results Cat Scan: Report Reviewed, Image Reviewed (RIGHT INGUINAL CELLULITIS) Problem List - Problems (1) Abscess or cellulitis of groin Assessment/Plan: R/O ABSCESS NEEDLE ASPIRATION UNDER LOCAL ANESTHESIA DONE - sanguinous fluid aspirated using G18 needle connected to 10 cc syringe, fluid C/S sent continue antibiotic Rx Code(s): [id number] -
[2020-06-23] MEDS ORDERED: LIDOCAINE HCL 1%, 10 MG/ML (20ML VIAL) ONE (19:20)
[2020-06-23] MEDS ORDERED: PT OWN MED DRAWER 7, Y5N ONE ×2 (22:39→23:40)
[2020-06-23] MEDS: VANCOMYCIN 1,250 MG in DEXTROSE 5%-WATER - 250 ML IVPB SCH (22:56)
--- NOTE | 2020-06-24 00:35 | CONSULT ---
Consult Consult Specialty:: Endocrine Referred by:: Dr.George Carter Reason for Consultation:: DMT2 new onset - History of Present Illness Chief Complaint: skin infection and groin pain/ high sugars History of Present Illness: 45 year old man admitted for Groin and Buttock abscess who presened with right groin pain past few days.he had same problem [id number] treated with antibiotics,he denies any history of diabetes mellitus,found to have new onset diabetes mellitus and groin infected abscess requiring wound care and iv antibiotic therapy.He has had weight loss,frequent urination,blurred vision,as well as difficulty walking from the pain and swelling from the groin infection. 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 History of Recent Travel: No Home Medications - Allergies Allergies/Adverse Reactions: Allergies Allergy/AdvReac Type Severity Reaction Status Date / Time No Known Allergies Allergy Verified 06/22/20 21:49 - Home Medications Home Medications: Ambulatory Orders Clindamycin [Cleocin -] 300 mg PO TID #0 capsule 06/13/13 Oxycodone HCl/Acetaminophen [Percocet 5-325 mg Tablet -] 1 tab PO Q4H #20 tablet 06/13/13 Family Medical History Family History: Denies Review of Systems - Review of Systems Constitutional: reports: Fever, Lethargy Eyes: reports: Blurred Vision HENT: reports: No Symptoms Neck: reports: No Symptoms Cardiovascular: reports: No Symptoms Respiratory: reports: No Symptoms, SOB on Exertion Gastrointestinal: reports: Bloating, Nausea Genitourinary: reports: Frequency Breasts: reports: No Symptoms Reported Musculoskeletal: reports: Muscle Pain, Muscle Cramps, Muscle Weakness Integumentary: reports: Incision, Lump, Rash, Wound Neurological: reports: Numbness Physical Exam Vital Signs: Vital Signs Temperature 98.8 F 06/23/20 22:00 Pulse Rate 75 06/23/20 22:00 Respiratory Rate 18 06/23/20 22:00 Blood Pressure 154/88 06/23/20 22:00 O2 Sat by Pulse Oximetry (%) 96 06/23/20 22:00 Integumentary: Yes: Erythema, Rash, Venous Stasis Changes Wound/Incision: Yes: Well Approximated, Draining, Reddened, Excoriated Labs: CBC, BMP 06/23/20 10:55 06/23/20 10:55 Problem List - Problems (1) Abscess or cellulitis of groin Problems reviewed: Yes Code(s): [id number] - (2) New onset type 2 diabetes mellitus Problems reviewed: Yes Code(s): E11.9 - TYPE 2 DIABETES MELLITUS WITHOUT COMPLICATIONS Assessment/Plan Current Active Problems Abscess or cellulitis of groin (Acute) New onset type 2 diabetes mellitus (Acute) Laboratory Results - last 24 hr 06/23/20 06/23/20 06/23/20 02:22 07:28 10:55 WBC 11.2 H RBC 4.98 Hgb 14.8 Hct 43.6 MCV 87.5 MCH 29.6 MCHC 33.9 RDW 13.3 Plt Count 106 L MPV 13.0 H Absolute Neuts (auto) 8.4 H Neutrophils % 75.0 Lymphocytes % 17.2 Monocytes % 6.6 Eosinophils % 0.8 Basophils % 0.4 Nucleated RBC % 0 PT with INR INR Sodium Potassium Chloride Carbon Dioxide Anion Gap BUN Creatinine Est GFR (CKD-EPI)AfAm Est GFR (CKD-EPI)NonAf POC Glucometer 296 Random Glucose Hemoglobin A1c % Calcium Total Bilirubin AST ALT Alkaline Phosphatase Total Protein Albumin Triglycerides Cholesterol Total LDL Cholesterol HDL Cholesterol Urine Color Yellow Urine Appearance Clear Urine pH 5.0 Ur Specific [place] 1.063 H Urine Protein Negative Urine Glucose (UA) >=1000 mg/dl Urine Ketones Negative Urine Blood Negative Urine Nitrite Negative Urine Bilirubin Negative Urine Urobilinogen 0.2 Ur Leukocyte Esterase Negative 06/23/20 06/23/20 06/23/20 10:55 10:55 10:55 WBC RBC Hgb Hct MCV MCH MCHC RDW Plt Count MPV Absolute Neuts (auto) Neutrophils % Lymphocytes % Monocytes % Eosinophils % Basophils % Nucleated RBC % PT with INR 14.10 H INR 1.19 H Sodium 136 Potassium 3.7 Chloride 102 Carbon Dioxide 27 Anion Gap 7 L BUN 7.9 Creatinine 0.6 Est GFR (CKD-EPI)AfAm 139.75 Est GFR (CKD-EPI)NonAf 120.58 POC Glucometer Random Glucose 299 H Hemoglobin A1c % 10.9 H Calcium 8.7 Total Bilirubin 0.8 AST 10 L ALT 22 Alkaline Phosphatase 149 H Total Protein 6.6 Albumin 3.3 L Triglycerides 122 Cholesterol 180 Total LDL Cholesterol 132 H HDL Cholesterol 36 L Urine Color Urine Appearance Urine pH Ur Specific [place] Urine Protein Urine Glucose (UA) Urine Ketones Urine Blood Urine Nitrite Urine Bilirubin Urine Urobilinogen Ur Leukocyte Esterase 06/23/20 06/23/20 06/23/20 12:34 14:03 17:31 WBC RBC Hgb Hct MCV MCH MCHC RDW Plt Count MPV Absolute Neuts (auto) Neutrophils % Lymphocytes % Monocytes % Eosinophils % Basophils % Nucleated RBC % PT with INR INR Sodium Potassium Chloride Carbon Dioxide Anion Gap BUN Creatinine Est GFR (CKD-EPI)AfAm Est GFR (CKD-EPI)NonAf POC Glucometer 350 260 174 Random Glucose Hemoglobin A1c % Calcium Total Bilirubin AST ALT Alkaline Phosphatase Total Protein Albumin Triglycerides Cholesterol Total LDL Cholesterol HDL Cholesterol Urine Color Urine Appearance Urine pH Ur Specific [place] Urine Protein Urine Glucose (UA) Urine Ketones Urine Blood Urine Nitrite Urine Bilirubin Urine Urobilinogen Ur Leukocyte Esterase 06/23/20 22:49 WBC RBC Hgb Hct MCV MCH MCHC RDW Plt Count MPV Absolute Neuts (auto) Neutrophils % Lymphocytes % Monocytes % Eosinophils % Basophils % Nucleated RBC % PT with INR INR Sodium Potassium Chloride Carbon Dioxide Anion Gap BUN Creatinine Est GFR (CKD-EPI)AfAm Est GFR (CKD-EPI)NonAf POC Glucometer 225 Random Glucose Hemoglobin A1c % Calcium Total Bilirubin AST ALT Alkaline Phosphatase Total Protein Albumin Triglycerides Cholesterol Total LDL Cholesterol HDL Cholesterol Urine Color Urine Appearance Urine pH Ur Specific [place] Urine Protein Urine Glucose (UA) Urine Ketones Urine Blood Urine Nitrite Urine Bilirubin Urine Urobilinogen Ur Leukocyte Esterase Abnormal Lab Results 06/23/20 06/23/20 06/23/20 02:22 10:55 10:55 WBC 11.2 H Plt Count 106 L MPV 13.0 H Absolute Neuts (auto) 8.4 H PT with INR INR Anion Gap 7 L Random Glucose 299 H Hemoglobin A1c % AST 10 L Alkaline Phosphatase 149 H Albumin 3.3 L Total LDL Cholesterol 132 H HDL Cholesterol 36 L Ur Specific [place] 1.063 H 06/23/20 06/23/20 10:55 10:55 WBC Plt Count MPV Absolute Neuts (auto) PT with INR 14.10 H INR 1.19 H Anion Gap Random Glucose Hemoglobin A1c % 10.9 H AST Alkaline Phosphatase Albumin Total LDL Cholesterol HDL Cholesterol Ur Specific [place] plan: bgm basal bolus insulindoses levemir basal insulin dose 25units am metformin 500mg bid januvia 100mg daily follow up for glucometer and testing outpatien diet nutrition follow up
[2020-06-24] MEDS ORDERED: PIPERACILLIN/TAZOBACTAM 4.5 GM VIAL IVPB ONE ×4 (00:59→23:31)
[2020-06-24] MEDS ORDERED: DEXTROSE 5%-WATER 100 ML IVPB ONE ×4 (00:59→23:31)
[2020-06-24] MEDS: PIPERACILLIN/TAZOB 4.5 GM 4.5 GM in DEXTROSE 5%-WATER 100 ML IVPB SCH ×3 (01:45→16:59)
[2020-06-24] MEDS: metFORMIN HCL 500 MG TABLET (FP) PO SCH ×2 (06:13→16:24)
[2020-06-24] MEDS: INSULIN (LEVEMIR) 100 UNITS/ML UNITS SQ SCH (06:13)
[2020-06-24] MEDS: INSULIN SLIDING SCALE (NOVOLOG) 1 VIAL SQ SCH ×4 (06:14→22:18)
[2020-06-24 06:45] LABS: BASO % 0.4 % (0-2.0); EOS % 0.8 % (0-4.5); HEMATOCRIT 43.7 % (35.4-49); HEMOGLOBIN 14.9 GM/dL (11.7-16.9); LYMPH % 20.9 % (8-40); MCH 29.8 pg (25.7-33.7); MEAN CELL VOLUME 87.7 fl (80-96); MEAN PLT VOLUME 12.3 fl (7.5-11.1); MONO % 7.1 % (3.8-10.2); NEUT % 70.8 % (42.8-82.8); PLATELET COUNT 107 K/MM3 (134-434); RBC 4.99 M/mm3 (4.00-5.60); RDW 12.8 % (11.9-15.9); WHITE BLOOD COUNT 11.8 K/mm3 (4.0-10.0)
[2020-06-24 07:18] LABS: BLOOD UREA NITROGEN 9.5 mg/dL (7-18); CALCIUM 8.9 mg/dL (8.5-10.1); CREATININE 0.7 mg/dL (0.55-1.3); MAGNESIUM 2.1 mg/dL (1.8-2.4); PHOSPHOROUS 3.9 mg/dL (2.5-4.9); POTASSIUM 3.6 mmol/L (3.5-5.1)
[2020-06-24] MEDS ORDERED: amLODIPine BESYLATE 2.5 MG TABLET (FP) PO SCH ×2 (08:32→09:00)
[2020-06-24] MEDS ORDERED: INSULIN (NOVOLOG) ASPART 100 UNITS/ML 10ML VIAL ONE ×2 (08:50→20:22)
[2020-06-24] MEDS: amLODIPine BESYLATE 5 MG TABLET (FP) PO SCH ×2 (09:37→09:45)
[2020-06-24] MEDS: ENOXAPARIN NA (PORCINE) 40 MG/0.4 ML DISP.SYRIN SQ SCH (09:37)
[2020-06-24] MEDS: VANCOMYCIN 1,250 MG in DEXTROSE 5%-WATER - 250 ML IVPB SCH ×2 (11:12→22:05)
--- NOTE | 2020-06-24 11:20 | PN ---
Physical Exam: SUBJECTIVE: Patient seen and examined at bedside. No acute events reported overnight. OBJECTIVE: Vital Signs Period Temp Pulse Resp BP Sys/Anna Pulse Ox Last 24 Hr 98.6 F-98.9 F 68-85 18-18 116-171/74-92 96-99 ENERAL: AAOx3, in no acute distress; laying in bed HEENT: NCAT, PERRLA, EOMI, sclera anicteric, conjunctiva clear, oropharynx clear w/o exudates. MMM. NECK: Normal ROM, supple, no lymphadenopathy, JVD, or masses LUNGS: CTABL no wheezes/ rhonchi/ rales. No distress, speaks in full sentences. No increased work of breathing. HEART: RRR, normal S1 S2, no M/R/G, peripheral pulses 2+ and equal b/l ABDOMEN: Soft, NTND, + BS. No guarding or rebound. No hepatomegaly or splenomegaly. MSK: ROM WNL EXTREMITIES: R medial thigh apex/groin swelling/induration with tenderness to palptation covered in white gauze dressing that is stained with dark red blood. Scrotum non-swollen, non-tender to palptation. NEUROLOGICAL: CN II-XII intact. Normal speech, normal gait, no focal sensorimotor deficits. SKIN: Warm, Dry, normal turgor, no rashes or lesions noted Laboratory Results - last 24 hr CBC, BMP 06/24/20 05:40 06/24/20 05:40 06/23/20 06/23/20 06/23/20 08:20 10:55 10:55 WBC 11.2 H RBC 4.98 Hgb 14.8 Hct 43.6 MCV 87.5 MCH 29.6 MCHC 33.9 RDW 13.3 Plt Count 106 L MPV 13.0 H Absolute Neuts (auto) 8.4 H Neutrophils % 75.0 Lymphocytes % 17.2 Monocytes % 6.6 Eosinophils % 0.8 Basophils % 0.4 Nucleated RBC % 0 PT with INR INR Sodium 136 Potassium 3.7 Chloride 102 Carbon Dioxide 27 Anion Gap 7 L BUN 7.9 Creatinine 0.6 Est GFR (CKD-EPI)AfAm 139.75 Est GFR (CKD-EPI)NonAf 120.58 POC Glucometer Random Glucose 299 H Hemoglobin A1c % Calcium 8.7 Phosphorus Magnesium Total Bilirubin 0.8 AST 10 L ALT 22 Alkaline Phosphatase 149 H Total Protein 6.6 Albumin 3.3 L Triglycerides 122 Cholesterol 180 Total LDL Cholesterol 132 H HDL Cholesterol 36 L Vancomycin Pre-Dose COVID-19 (MOOSE) Not detected 06/23/20 06/23/20 06/23/20 10:55 10:55 12:34 WBC RBC Hgb Hct MCV MCH MCHC RDW Plt Count MPV Absolute Neuts (auto) Neutrophils % Lymphocytes % Monocytes % Eosinophils % Basophils % Nucleated RBC % PT with INR 14.10 H INR 1.19 H Sodium Potassium Chloride Carbon Dioxide Anion Gap BUN Creatinine Est GFR (CKD-EPI)AfAm Est GFR (CKD-EPI)NonAf POC Glucometer 350 Random Glucose Hemoglobin A1c % 10.9 H Calcium Phosphorus Magnesium Total Bilirubin AST ALT Alkaline Phosphatase Total Protein Albumin Triglycerides Cholesterol Total LDL Cholesterol HDL Cholesterol Vancomycin Pre-Dose COVID-19 (MOOSE) 06/23/20 06/23/20 06/23/20 14:03 17:31 22:49 WBC RBC Hgb Hct MCV MCH MCHC RDW Plt Count MPV Absolute Neuts (auto) Neutrophils % Lymphocytes % Monocytes % Eosinophils % Basophils % Nucleated RBC % PT with INR INR Sodium Potassium Chloride Carbon Dioxide Anion Gap BUN Creatinine Est GFR (CKD-EPI)AfAm Est GFR (CKD-EPI)NonAf POC Glucometer 260 174 225 Random Glucose Hemoglobin A1c % Calcium Phosphorus Magnesium Total Bilirubin AST ALT Alkaline Phosphatase Total Protein Albumin Triglycerides Cholesterol Total LDL Cholesterol HDL Cholesterol Vancomycin Pre-Dose COVID-19 (MOOSE) 06/24/20 06/24/20 06/24/20 05:37 05:40 05:40 WBC 11.8 H RBC 4.99 Hgb 14.9 Hct 43.7 MCV 87.7 MCH 29.8 MCHC 34.0 RDW 12.8 Plt Count 107 L MPV 12.3 H Absolute Neuts (auto) 8.3 H Neutrophils % 70.8 Lymphocytes % 20.9 D Monocytes % 7.1 Eosinophils % 0.8 Basophils % 0.4 Nucleated RBC % 0 PT with INR INR Sodium 138 Potassium 3.6 Chloride 102 Carbon Dioxide 30 Anion Gap 7 L BUN 9.5 Creatinine 0.7 Est GFR (CKD-EPI)AfAm 131.17 Est GFR (CKD-EPI)NonAf 113.17 POC Glucometer 269 Random Glucose 255 H Hemoglobin A1c % Calcium 8.9 Phosphorus 3.9 Magnesium 2.1 Total Bilirubin AST ALT Alkaline Phosphatase Total Protein Albumin Triglycerides Cholesterol Total LDL Cholesterol HDL Cholesterol Vancomycin Pre-Dose COVID-19 (MOOSE) 06/24/20 09:20 WBC RBC Hgb Hct MCV MCH MCHC RDW Plt Count MPV Absolute Neuts (auto) Neutrophils % Lymphocytes % Monocytes % Eosinophils % Basophils % Nucleated RBC % PT with INR INR Sodium Potassium Chloride Carbon Dioxide Anion Gap BUN Creatinine Est GFR (CKD-EPI)AfAm Est GFR (CKD-EPI)NonAf POC Glucometer Random Glucose Hemoglobin A1c % Calcium Phosphorus Magnesium Total Bilirubin AST ALT Alkaline Phosphatase Total Protein Albumin Triglycerides Cholesterol Total LDL Cholesterol HDL Cholesterol Vancomycin Pre-Dose 4.6 L COVID-19 (MOOSE) Active Medications Generic Name Dose Route Start Last Admin Trade Name Freq PRN Reason Stop Dose Admin Amlodipine Besylate 5 mg 06/24/20 09:00 06/24/20 09:45 Norvasc - PO Not Given DAILY TAWANDA Enoxaparin Sodium 40 mg 06/23/20 10:00 06/24/20 09:37 Lovenox - SQ 40 mg DAILY TAWANDA Administration Piperacillin Sod/Tazobactam 100 mls @ 200 mls/hr 06/23/20 10:15 06/24/20 09:38 Sod 4.5 gm/ Dextrose IVPB 200 mls/hr Q8H-IV TAWANDA Administration Protocol Vancomycin HCl 1,250 mg/ 250 mls @ 166.667 mls/hr 06/23/20 22:30 06/24/20 11:12 Dextrose IVPB 166.667 mls/hr BID@1030,2230 TAWANDA Administration Protocol Insulin Aspart 1 vial 06/24/20 07:00 06/24/20 11:11 Novolog Vial Sliding Scale - SQ 6 units ACHS TAWANDA Administration Protocol Insulin Detemir 25 units 06/24/20 07:00 06/24/20 06:13 Levemir Vial SQ 25 units AM TAWANDA Administration Metformin HCl 500 mg 06/24/20 07:00 06/24/20 06:13 Glucophage - PO 500 mg BID@0700,1630 TAWANDA Administration Sitagliptin Phosphate 100 mg 06/24/20 07:00 06/24/20 06:13 Januvia - PO 100 mg DAILY@0700 TAWANDA Administration ASSESSMENT/PLAN: 45 y/o M with with no significant PMH presenting with R groin pain/swelling/tenderness for 7 days. Admitted for acute cellulitis. #R Groin/proximal medial thigh Cellulitis -CT Pelvis - subcutaneous edema R groin extending to medial aspect of upper mid thigh -VSS stable -leukocytosis improving -c/w Vanc/Zosyn as per ID -Blood and wound Cx pending -Surgery consult: Dr. Russell did bedside drainage of a pocket of abscess at bedside. -Urology consult: Dr. Azar does not want surgical intervention at this time #DM - newly diagnosed during this visit -fasting sugar today ~200s -A1c: 10.9 -c/w ISS w/ BGM -pt will need diabetes counseling at d/c -Endocrine consult: Dr. López started Metformin BID 500 mg, Januvia 100 mg daily, 25 U Levemir in the AM #HTN -Norvasc increased to 5 mg today -Patient will benefit from JAMEEL/ARB at discharge -patient has no history of HTN #R Renal lower pole Calculus -incidental finding -non-obstructing -Urology out-patient f/u #Chronic Thrombocytopenia -no bruising or bleeding noted today -no workup needed at this time -continue to monitor -heme f/u outpt #FEN -no standing fluids -monitor lytes; replete PRN -diabetic sodium controlled diet #Ppx -DVT: Lovenox SQ dispo: continue to monitor in m/s Visit type - Emergency Visit Emergency Visit: No - New Patient This patient is new to me today: No - Critical Care Critical Care patient: No - Discharge Referral Referred to [facility] Med P.C.: No ATTENDING PHYSICIAN STATEMENT I saw and evaluated the patient. I reviewed the resident's note and discussed the case with the resident. I agree with the resident's findings and plan as documented. SUBJECTIVE: OBJECTIVE: ASSESSMENT AND PLAN:
--- NOTE | 2020-06-24 14:13 | PN ---
Teaching Attending Note Name of Resident: Colin Pettit ATTENDING PHYSICIAN STATEMENT I saw and evaluated the patient. I reviewed the resident's note and discussed the case with the resident. I agree with the resident's findings and plan as documented. SUBJECTIVE: pt seen and examined at bedside OBJECTIVE: Last Vital Signs Temp Pulse Resp BP Pulse Ox 98.6 F 72 18 134/85 97 06/24/20 08:36 06/24/20 08:36 06/24/20 09:00 06/24/20 08:36 06/24/20 09:00 GENERAL: Awake, alert, and fully oriented, in no acute distress. HEAD: Normal with no signs of trauma. EYES: Pupils equal, round and reactive to light, sclera anicteric, conjunctiva clear. LUNGS: Breath sounds equal, clear to auscultation bilaterally. No wheezes, and no crackles. No accessory muscle use. HEART: Regular rate and rhythm, normal S1 and S2 ABDOMEN: Soft, nontender, not distended UPPER EXTREMITIES: 2+ pulses, warm, well-perfused. No cyanosis. No clubbing. No peripheral edema. LOWER EXTREMITIES: 2+ pulses, warm, well-perfused. No calf tenderness. No peripheral edema. NEUROLOGICAL: Cranial nerves II-XII intact. Normal speech. Skin: Rt middle thigh and buttock scars from remote abscesses, Rt inguinal area dressed s/p I&D CBCD WBC 11.8 K/mm3 (4.0-10.0) H 06/24/20 05:40 RBC 4.99 M/mm3 (4.00-5.60) 06/24/20 05:40 Hgb 14.9 GM/dL (11.7-16.9) 06/24/20 05:40 Hct 43.7 % (35.4-49) 06/24/20 05:40 MCV 87.7 fl (80-96) 06/24/20 05:40 MCHC 34.0 g/dl (32.0-35.9) 06/24/20 05:40 RDW 12.8 % (11.9-15.9) 06/24/20 05:40 Plt Count 107 K/MM3 (134-434) L 06/24/20 05:40 MPV 12.3 fl (7.5-11.1) H 06/24/20 05:40 CMP Sodium 138 mmol/L (136-145) 06/24/20 05:40 Potassium 3.6 mmol/L (3.5-5.1) 06/24/20 05:40 Chloride 102 mmol/L (98-107) 06/24/20 05:40 Carbon Dioxide 30 mmol/L (21-32) 06/24/20 05:40 Anion Gap 7 MMOL/L (8-16) L 06/24/20 05:40 BUN 9.5 mg/dL (7-18) 06/24/20 05:40 Creatinine 0.7 mg/dL (0.55-1.3) 06/24/20 05:40 Random Glucose 255 mg/dL (74-106) H 06/24/20 05:40 Calcium 8.9 mg/dL (8.5-10.1) 06/24/20 05:40 Total Bilirubin 0.8 mg/dL (0.2-1) 06/23/20 10:55 AST 10 U/L (15-37) L 06/23/20 10:55 ALT 22 U/L (13-61) 06/23/20 10:55 Alkaline Phosphatase 149 U/L (45-117) H 06/23/20 10:55 Total Protein 6.6 g/dl (6.4-8.2) 06/23/20 10:55 Albumin 3.3 g/dl (3.4-5.0) L 06/23/20 10:55 Active Medications Amlodipine Besylate (Norvasc -) 5 mg PO DAILY [facility] Last Admin: 06/24/20 09:45 Dose: Not Given Documented by: Enoxaparin Sodium (Lovenox -) 40 mg SQ DAILY [facility] Last Admin: 06/24/20 09:37 Dose: 40 mg Documented by: Piperacillin Sod/Tazobactam (Sod 4.5 gm/ Dextrose) 100 mls @ 200 mls/hr IVPB Q8H-IV TAWANDA; Protocol Last Admin: 06/24/20 09:38 Dose: 200 mls/hr Documented by: Vancomycin HCl 1,250 mg/ (Dextrose) 250 mls @ 166.667 mls/hr IVPB BID@1030,2230 TAWANDA; Protocol Last Admin: 06/24/20 11:12 Dose: 166.667 mls/hr Documented by: Insulin Aspart (Novolog Vial Sliding Scale -) 1 vial SQ ACHS [facility]; Protocol Last Admin: 06/24/20 11:11 Dose: 6 units Documented by: Insulin Detemir (Levemir Vial) 25 units SQ AM [facility] Last Admin: 06/24/20 06:13 Dose: 25 units Documented by: Metformin HCl (Glucophage -) 500 mg PO BID@0700,1630 [facility] Last Admin: 06/24/20 06:13 Dose: 500 mg Documented by: Sitagliptin Phosphate (Januvia -) 100 mg PO DAILY@0700 [facility] Last Admin: 06/24/20 06:13 Dose: 100 mg Documented by: ASSESSMENT AND PLAN: 45 year old male with no significant PMH, presents with R groin pain/swelling/tenderness, found to have acute cellulitis and newly diagnosed DM2. # Sepsis due to R Groin/proximal medial thigh Cellulutitis/abscess resolving s/p I&D Afebrile, Leukocytosis Blood Cx negative to date wound culture pending CT Pelvis - subcutaneous edema R groin extending to medial aspect of mid thigh. Abx per ID Surgery consult appreciated ID consult appreciated # newly diagnosed DM 2 Insulin regimen and education Diet, lifestyle modification discussed HgA1c 10.9 HTN R renal calculus for outpatient follow up with urology Chronic Thrombocytopenia DVT Px - Lovenox SQ
--- NOTE | 2020-06-24 14:29 | PN ---
Progress Note (short form) - Note Progress Note: less groin pain apparently had a needle aspiration at the bedside last night and a culture was sent no fevers Vital Signs Period Temp Pulse Resp BP Sys/Anna Pulse Ox Last 24 Hr 98.6 F-98.9 F 68-85 18-18 116-154/77-88 96-99 cor-rrr lungs clear abd soft, - dressing removed, there is no open wound- +induration, +erythema, less tender then yesterday ext no edema CBC, BMP 06/24/20 05:40 06/24/20 05:40 a/p s/p needle aspiration? of right groin abscess- cultures pending continue vancomycin and zosyn f/u cultures newly diagnosed DM- has not yet used glucometer or self administered insulin needs diabetic teaching hopefully home in am Problem List - Problems (1) Abscess or cellulitis of groin Code(s): [id number] - (2) New onset type 2 diabetes mellitus Code(s): E11.9 - TYPE 2 DIABETES MELLITUS WITHOUT COMPLICATIONS
--- NOTE | 2020-06-24 16:43 | PN ---
Progress Note, Physician Chief Complaint: right inguinal cellulitis History of Present Illness: patient feels much better with minimal pain no spontaneous drainage from needle puncture site noted - Current Medication List Current Medications: Active Medications Amlodipine Besylate (Norvasc -) 5 mg PO DAILY [facility] Last Admin: 06/24/20 09:45 Dose: Not Given Documented by: Enoxaparin Sodium (Lovenox -) 40 mg SQ DAILY [facility] Last Admin: 06/24/20 09:37 Dose: 40 mg Documented by: Piperacillin Sod/Tazobactam (Sod 4.5 gm/ Dextrose) 100 mls @ 200 mls/hr IVPB Q8H-IV [facility]; Protocol Last Admin: 06/24/20 09:38 Dose: 200 mls/hr Documented by: Vancomycin HCl 1,250 mg/ (Dextrose) 250 mls @ 166.667 mls/hr IVPB BID@1030,2230 [facility]; Protocol Last Admin: 06/24/20 11:12 Dose: 166.667 mls/hr Documented by: Insulin Aspart (Novolog Vial Sliding Scale -) 1 vial SQ ACHS [facility]; Protocol Last Admin: 06/24/20 16:25 Dose: 6 units Documented by: Insulin Detemir (Levemir Vial) 25 units SQ AM [facility] Last Admin: 06/24/20 06:13 Dose: 25 units Documented by: Metformin HCl (Glucophage -) 500 mg PO BID@0700,1630 [facility] Last Admin: 06/24/20 16:24 Dose: 500 mg Documented by: Sitagliptin Phosphate (Januvia -) 100 mg PO DAILY@0700 [facility] Last Admin: 06/24/20 06:13 Dose: 100 mg Documented by: - Objective Vital Signs: Vital Signs Temperature 98.8 F 06/24/20 14:28 Pulse Rate 75 06/24/20 14:28 Respiratory Rate 20 06/24/20 14:28 Blood Pressure 145/71 06/24/20 14:28 O2 Sat by Pulse Oximetry (%) 97 06/24/20 09:00 Wound/Incision: Yes: Other (right inguinofemoral induration softer and less tender, no discharge from needle puncture site noted) Labs: CBC, BMP 06/24/20 05:40 06/24/20 05:40 INR, PTT INR 1.19 (0.83-1.09) H 06/23/20 10:55 Problem List - Problems (1) Abscess or cellulitis of groin Assessment/Plan: no clear evidence of abscess although patient may still develop one clinically improved continue abx may need I & D if spontaneous drainage occurs D/C planning if patient continues to improve Code(s): [id number] -
[2020-06-25] MEDS: PIPERACILLIN/TAZOB 4.5 GM 4.5 GM in DEXTROSE 5%-WATER 100 ML IVPB SCH ×3 (01:01→18:00)
[2020-06-25] MEDS: metFORMIN HCL 500 MG TABLET (FP) PO SCH ×2 (05:59→16:27)
[2020-06-25] MEDS: INSULIN (LEVEMIR) 100 UNITS/ML UNITS SQ SCH (06:18)
[2020-06-25] MEDS: INSULIN SLIDING SCALE (NOVOLOG) 1 VIAL SQ SCH ×4 (06:28→21:52)
[2020-06-25 07:36] LABS: BASO % 0.5 % (0-2.0); EOS % 0.8 % (0-4.5); HEMATOCRIT 45.1 % (35.4-49); HEMOGLOBIN 15.3 GM/dL (11.7-16.9); LYMPH % 17.6 % (8-40); MCH 29.8 pg (25.7-33.7); MEAN CELL VOLUME 87.8 fl (80-96); MEAN PLT VOLUME 12.2 fl (7.5-11.1); MONO % 6.2 % (3.8-10.2); NEUT % 74.9 % (42.8-82.8); PLATELET COUNT 121 K/MM3 (134-434); RBC 5.14 M/mm3 (4.00-5.60)
[2020-06-25 07:53] LABS: BLOOD UREA NITROGEN 8.8 mg/dL (7-18); CALCIUM 9.1 mg/dL (8.5-10.1); CREATININE 0.7 mg/dL (0.55-1.3); MAGNESIUM 1.8 mg/dL (1.8-2.4); PHOSPHOROUS 4.1 mg/dL (2.5-4.9)
[2020-06-25] MEDS ORDERED: DEXTROSE 5%-WATER 100 ML IVPB ONE ×2 (09:35→17:50)
[2020-06-25] MEDS ORDERED: PIPERACILLIN/TAZOBACTAM 4.5 GM VIAL IVPB ONE ×2 (09:35→17:50)
[2020-06-25] MEDS: ENOXAPARIN NA (PORCINE) 40 MG/0.4 ML DISP.SYRIN SQ SCH (09:43)
[2020-06-25] MEDS: amLODIPine BESYLATE 5 MG TABLET (FP) PO SCH (09:43)
[2020-06-25] MEDS ORDERED: PT OWN MED DRAWER 7, Y5N ONE ×2 (10:46→21:46)
[2020-06-25] MEDS: VANCOMYCIN 1,250 MG in DEXTROSE 5%-WATER - 250 ML IVPB SCH ×2 (11:12→21:55)
[2020-06-25] MEDS ORDERED: INSULIN (NOVOLOG) ASPART 100 UNITS/ML 10ML VIAL ONE ×2 (11:49→21:46)
--- NOTE | 2020-06-25 11:55 | PN ---
Physical Exam: SUBJECTIVE: Patient seen and examined at bedside. No acute events reported overnight. OBJECTIVE: Vital Signs Period Temp Pulse Resp BP Sys/Anna Pulse Ox Last 24 Hr 98.6 F-99.2 F 66-78 18-20 134-145/71-93 97-98 GENERAL: AAOx3, in no acute distress; laying in bed HEENT: NCAT, PERRLA, EOMI, sclera anicteric, conjunctiva clear, oropharynx clear w/o exudates. MMM. NECK: Normal ROM, supple, no lymphadenopathy, JVD, or masses LUNGS: CTABL no wheezes/ rhonchi/ rales. No distress, speaks in full sentences. No increased work of breathing. HEART: RRR, normal S1 S2, no M/R/G, peripheral pulses 2+ and equal b/l ABDOMEN: Soft, NTND, + BS. No guarding or rebound. No hepatomegaly or splenomegaly. MSK: ROM WNL EXTREMITIES: R medial thigh apex/groin swelling/induration with tenderness to palptation covered in white gauze dressing that is stained with dark red blood. Scrotum non-swollen, non-tender to palptation. Less tender than yesterday NEUROLOGICAL: CN II-XII intact. Normal speech, normal gait, no focal sensorimotor deficits. SKIN: Warm, Dry, normal turgor, no rashes or lesions noted Laboratory Results - last 24 hr CBC, BMP 06/25/20 06:40 06/25/20 06:40 06/24/20 06/24/20 06/25/20 16:12 22:13 06:25 WBC RBC Hgb Hct MCV MCH MCHC RDW Plt Count MPV Absolute Neuts (auto) Neutrophils % Lymphocytes % Monocytes % Eosinophils % Basophils % Nucleated RBC % Sodium Potassium Chloride Carbon Dioxide Anion Gap BUN Creatinine Est GFR (CKD-EPI)AfAm Est GFR (CKD-EPI)NonAf POC Glucometer 217 238 214 Random Glucose Calcium Phosphorus Magnesium 06/25/20 06/25/20 06/25/20 06:40 06:40 11:47 WBC 14.0 H RBC 5.14 Hgb 15.3 Hct 45.1 MCV 87.8 MCH 29.8 MCHC 34.0 RDW 13.0 Plt Count 121 L MPV 12.2 H Absolute Neuts (auto) 10.5 H Neutrophils % 74.9 Lymphocytes % 17.6 Monocytes % 6.2 Eosinophils % 0.8 Basophils % 0.5 Nucleated RBC % 0 Sodium 139 Potassium 4.0 Chloride 103 Carbon Dioxide 29 Anion Gap 7 L BUN 8.8 Creatinine 0.7 Est GFR (CKD-EPI)AfAm 131.17 Est GFR (CKD-EPI)NonAf 113.17 POC Glucometer 248 Random Glucose 199 H Calcium 9.1 Phosphorus 4.1 Magnesium 1.8 Active Medications Generic Name Dose Route Start Last Admin Trade Name Freq PRN Reason Stop Dose Admin Amlodipine Besylate 5 mg 06/24/20 09:00 06/25/20 09:43 Norvasc - PO 5 mg DAILY [facility]ANDA Administration Enoxaparin Sodium 40 mg 06/23/20 10:00 06/25/20 09:43 Lovenox - SQ 40 mg DAILY [facility]ANDA Administration Piperacillin Sod/Tazobactam 100 mls @ 200 mls/hr 06/23/20 10:15 06/25/20 09:43 Sod 4.5 gm/ Dextrose IVPB 200 mls/hr Q8H-IV TAWANDA Administration Protocol Vancomycin HCl 1,250 mg/ 250 mls @ 166.667 mls/hr 06/23/20 22:30 06/25/20 11:12 Dextrose IVPB 166.667 mls/hr BID@1030,2230 TAWANDA Administration Protocol Insulin Aspart 1 vial 06/24/20 07:00 06/25/20 06:28 Novolog Vial Sliding Scale - SQ 6 units ACHS TAWANDA Administration Protocol Insulin Detemir 25 units 06/24/20 07:00 06/25/20 06:18 Levemir Vial SQ 25 units AM TAWANDA Administration Metformin HCl 500 mg 06/24/20 07:00 06/25/20 05:59 Glucophage - PO 500 mg BID@0700,1630 [facility]DA Administration Sitagliptin Phosphate 100 mg 06/24/20 07:00 06/25/20 05:59 Januvia - PO 100 mg DAILY@0700 TA[facility]DA Administration ASSESSMENT/PLAN: 45 y/o M with with no significant PMH presenting with R groin pain/swelling/tenderness for 7 days. Admitted for acute cellulitis. #R Groin/proximal medial thigh Cellulitis -CT Pelvis - subcutaneous edema R groin extending to medial aspect of upper mid thigh -VSS stable -leukocytosis: wbc 14.0 today; up from 11.8 yesterday -c/w Vanc/Zosyn as per ID -Blood and wound Cx pending -Surgery consult: Dr. Russell recommends US of the area; will see pt today for possible OR I and D tomorrow -Urology consult: Dr. Azar does not want surgical intervention at this time #DM - newly diagnosed during this visit -fasting sugar today ~200s -A1c: 10.9 -c/w ISS w/ BGM -received diabetes counseling by nursing staff yesterday and by primary team today -Endocrine consult: Dr. López started Metformin BID 500 mg, Januvia 100 mg daily, 25 U Levemir in the AM #HTN -c/w Norvasc 5 mg -Patient will benefit from JAMEEL/ARB at discharge -patient has no history of HTN #R Renal lower pole Calculus -incidental finding -non-obstructing -Urology out-patient f/u #Chronic Thrombocytopenia -no bruising or bleeding noted today -no workup needed at this time -continue to monitor -heme f/u outpt #FEN -no standing fluids -monitor lytes; replete PRN -diabetic sodium controlled diet #Ppx -DVT: Lovenox SQ dispo: continue to monitor in m/s Visit type - Emergency Visit Emergency Visit: No - New Patient This patient is new to me today: No - Critical Care Critical Care patient: No - Discharge Referral Referred to [facility] Med P.C.: No ATTENDING PHYSICIAN STATEMENT I saw and evaluated the patient. I reviewed the resident's note and discussed the case with the resident. I agree with the resident's findings and plan as documented. SUBJECTIVE: OBJECTIVE: ASSESSMENT AND PLAN:
[2020-06-25 12:20] VITALS: BMI 31.3
--- NOTE | 2020-06-25 13:12 | PN ---
Progress Note (short form) - Note Progress Note: lstill with some discomfort at the right groin Vital Signs Period Temp Pulse Resp BP Sys/Anna Pulse Ox Last 24 Hr 98.6 F-99.2 F 66-78 18-20 134-145/71-93 97-98 cor-rrr lungs clear abd soft,nt no scrotal tenderness +induation right groin, no fluctuance no drainage ext no edema CBC, BMP 06/25/20 06:40 06/25/20 06:40 Microbiology 06/23/20 07:00 Abscess Gram Stain - Final 06/23/20 07:00 Abscess Wound Culture - Preliminary NO GROWTH OBTAINED AFTER 24 HOURS INCUBATION, REINCUBATED. 06/22/20 22:50 Blood - Peripheral Venous Blood Culture - Preliminary NO GROWTH OBTAINED AFTER 48 HOURS, INCUBATION TO CONTINUE FOR 3 DAYS. 06/22/20 22:50 Blood - Peripheral Venous Blood Culture - Preliminary NO GROWTH OBTAINED AFTER 48 HOURS, INCUBATION TO CONTINUE FOR 3 DAYS. a/p s/p needle aspiration of right groin abscess- cultures pending-gram stain negative continue vancomycin and zosyn f/u cultures repeat vanco trough still with leukocytosis newly diagnosed DM- needs diabetic teaching Problem List - Problems (1) Abscess or cellulitis of groin Code(s): [id number] - (2) New onset type 2 diabetes mellitus Code(s): E11.9 - TYPE 2 DIABETES MELLITUS WITHOUT COMPLICATIONS
--- NOTE | 2020-06-25 13:53 | PN ---
Teaching Attending Note Name of Resident: Colin Pettit ATTENDING PHYSICIAN STATEMENT I saw and evaluated the patient. I reviewed the resident's note and discussed the case with the resident. I agree with the resident's findings and plan as documented. SUBJECTIVE: pt seen and examined OBJECTIVE: Last Vital Signs Temp Pulse Resp BP Pulse Ox 99.2 F 66 18 134/77 97 06/25/20 06:00 06/25/20 06:00 06/25/20 09:00 06/25/20 06:00 06/25/20 09:00 GENERAL: Awake, alert, and fully oriented, in no acute distress. HEAD: Normal with no signs of trauma. EYES: Pupils equal, round and reactive to light, sclera anicteric, conjunctiva clear. LUNGS: Breath sounds equal, clear to auscultation bilaterally. No wheezes, and no crackles. No accessory muscle use. HEART: Regular rate and rhythm, normal S1 and S2 ABDOMEN: Soft, nontender, not distended UPPER EXTREMITIES: 2+ pulses, warm, well-perfused. No cyanosis. No clubbing. No peripheral edema. LOWER EXTREMITIES: 2+ pulses, warm, well-perfused. No calf tenderness. No peripheral edema. NEUROLOGICAL: Cranial nerves II-XII intact. Normal speech. 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 CBCD WBC 14.0 K/mm3 (4.0-10.0) H 06/25/20 06:40 RBC 5.14 M/mm3 (4.00-5.60) 06/25/20 06:40 Hgb 15.3 GM/dL (11.7-16.9) 06/25/20 06:40 Hct 45.1 % (35.4-49) 06/25/20 06:40 MCV 87.8 fl (80-96) 06/25/20 06:40 MCHC 34.0 g/dl (32.0-35.9) 06/25/20 06:40 RDW 13.0 % (11.9-15.9) 06/25/20 06:40 Plt Count 121 K/MM3 (134-434) L 06/25/20 06:40 MPV 12.2 fl (7.5-11.1) H 06/25/20 06:40 CMP Sodium 139 mmol/L (136-145) 06/25/20 06:40 Potassium 4.0 mmol/L (3.5-5.1) 06/25/20 06:40 Chloride 103 mmol/L (98-107) 06/25/20 06:40 Carbon Dioxide 29 mmol/L (21-32) 06/25/20 06:40 Anion Gap 7 MMOL/L (8-16) L 06/25/20 06:40 BUN 8.8 mg/dL (7-18) 06/25/20 06:40 Creatinine 0.7 mg/dL (0.55-1.3) 06/25/20 06:40 Random Glucose 199 mg/dL (74-106) H 06/25/20 06:40 Calcium 9.1 mg/dL (8.5-10.1) 06/25/20 06:40 Total Bilirubin 0.8 mg/dL (0.2-1) 06/23/20 10:55 AST 10 U/L (15-37) L 06/23/20 10:55 ALT 22 U/L (13-61) 06/23/20 10:55 Alkaline Phosphatase 149 U/L (45-117) H 06/23/20 10:55 Total Protein 6.6 g/dl (6.4-8.2) 06/23/20 10:55 Albumin 3.3 g/dl (3.4-5.0) L 06/23/20 10:55 Active Medications Amlodipine Besylate (Norvasc -) 5 mg PO DAILY [facility] Last Admin: 06/25/20 09:43 Dose: 5 mg Documented by: Enoxaparin Sodium (Lovenox -) 40 mg SQ DAILY [facility] Last Admin: 06/25/20 09:43 Dose: 40 mg Documented by: Piperacillin Sod/Tazobactam (Sod 4.5 gm/ Dextrose) 100 mls @ 200 mls/hr IVPB Q8H-IV [facility]WANDA; Protocol Last Admin: 06/25/20 09:43 Dose: 200 mls/hr Documented by: Vancomycin HCl 1,250 mg/ (Dextrose) 250 mls @ 166.667 mls/hr IVPB BID@1030,2230 TAWANDA; Protocol Last Admin: 06/25/20 11:12 Dose: 166.667 mls/hr Documented by: Insulin Aspart (Novolog Vial Sliding Scale -) 1 vial SQ ACHS [facility]; Protocol Last Admin: 06/25/20 12:01 Dose: 6 units Documented by: Insulin Detemir (Levemir Vial) 25 units SQ AM [facility] Last Admin: 06/25/20 06:18 Dose: 25 units Documented by: Metformin HCl (Glucophage -) 500 mg PO BID@0700,1630 [facility] Last Admin: 06/25/20 05:59 Dose: 500 mg Documented by: Sitagliptin Phosphate (Januvia -) 100 mg PO DAILY@0700 [facility] Last Admin: 06/25/20 05:59 Dose: 100 mg Documented by: ASSESSMENT AND PLAN: 45 year old male with no significant PMH, presents with R groin pain/swelling/tenderness, found to have acute cellulitis and newly diagnosed DM2. # Sepsis due to R Groin/proximal medial thigh Cellulutitis/abscess s/p I&D Afebrile Blood Cx negative to date wound culture pending Leukocytosis worsen today Abx per ID Surgery consult appreciated ID consult appreciated # newly diagnosed DM 2 Insulin regimen and education Diet, lifestyle modification discussed HgA1c 10.9 HTN R renal calculus for outpatient follow up with urology Chronic Thrombocytopenia DVT Px - Lovenox SQ
[2020-06-25] MEDS: ACETAMINOPHEN 325 MG TABLET (FP) PO PRN (17:56)
--- NOTE | 2020-06-25 18:51 | PN ---
Progress Note, Physician Chief Complaint: right inguinal cellulitis History of Present Illness: Has mild right inguinal pain No spontaneous purulent drainage Inguinal US done but report pending - Current Medication List Current Medications: Active Medications Acetaminophen (Tylenol -) 650 mg PO Q4H PRN PRN Reason: PAIN LEVEL 7 - 10 Last Admin: 06/25/20 17:56 Dose: 650 mg Documented by: Amlodipine Besylate (Norvasc -) 5 mg PO DAILY [facility] Last Admin: 06/25/20 09:43 Dose: 5 mg Documented by: Enoxaparin Sodium (Lovenox -) 40 mg SQ DAILY [facility] Last Admin: 06/25/20 09:43 Dose: 40 mg Documented by: Piperacillin Sod/Tazobactam (Sod 4.5 gm/ Dextrose) 100 mls @ 200 mls/hr IVPB Q8H-IV [facility]; Protocol Last Admin: 06/25/20 18:00 Dose: 200 mls/hr Documented by: Vancomycin HCl 1,250 mg/ (Dextrose) 250 mls @ 166.667 mls/hr IVPB BID@1030,2230 [facility]; Protocol Last Admin: 06/25/20 11:12 Dose: 166.667 mls/hr Documented by: Insulin Aspart (Novolog Vial Sliding Scale -) 1 vial SQ ACHS [facility]; Protocol Last Admin: 06/25/20 16:29 Dose: 4 units Documented by: Insulin Detemir (Levemir Vial) 25 units SQ AM [facility] Last Admin: 06/25/20 06:18 Dose: 25 units Documented by: Metformin HCl (Glucophage -) 500 mg PO BID@0700,1630 [facility] Last Admin: 06/25/20 16:27 Dose: 500 mg Documented by: Sitagliptin Phosphate (Januvia -) 100 mg PO DAILY@0700 [facility] Last Admin: 06/25/20 05:59 Dose: 100 mg Documented by: - Objective Vital Signs: Vital Signs Temperature 98.5 F 06/25/20 14:00 Pulse Rate 77 06/25/20 14:00 Respiratory Rate 18 06/25/20 14:00 Blood Pressure 142/73 06/25/20 14:00 O2 Sat by Pulse Oximetry (%) 96 06/25/20 14:00 Constitutional: Yes: No Distress Musculoskeletal: Yes: Other (right inguin0-femoral area more fluctuant and mildly tender) Labs: CBC, BMP 06/25/20 06:40 06/25/20 06:40 INR, PTT INR 1.19 (0.83-1.09) H 06/23/20 10:55 Problem List - Problems (1) Abscess or cellulitis of groin Assessment/Plan: Cellulitis likely forming into an abscess For I & D of right inguinal abscess in am Code(s): [id number] -
[2020-06-26] MEDS ORDERED: PIPERACILLIN/TAZOBACTAM 4.5 GM VIAL IVPB ONE ×3 (01:33→18:26)
[2020-06-26] MEDS ORDERED: DEXTROSE 5%-WATER 100 ML IVPB ONE ×3 (01:33→18:27)
[2020-06-26] MEDS: PIPERACILLIN/TAZOB 4.5 GM 4.5 GM in DEXTROSE 5%-WATER 100 ML IVPB SCH ×3 (01:38→18:29)
[2020-06-26] MEDS: ACETAMINOPHEN 325 MG TABLET (FP) PO PRN ×2 (06:12→19:32)
[2020-06-26] MEDS: metFORMIN HCL 500 MG TABLET (FP) PO SCH ×2 (06:13→17:14)
[2020-06-26] MEDS: INSULIN (LEVEMIR) 100 UNITS/ML UNITS SQ SCH (06:14)
[2020-06-26] MEDS: INSULIN SLIDING SCALE (NOVOLOG) 1 VIAL SQ SCH ×4 (06:16→21:19)
[2020-06-26 07:30] LABS: BASO % 0.3 % (0-2.0); EOS % 1.1 % (0-4.5); HEMATOCRIT 45.4 % (35.4-49); HEMOGLOBIN 15.9 GM/dL (11.7-16.9); LYMPH % 15.5 % (8-40); MCH 30.9 pg (25.7-33.7); MCHC 34.9 g/dl (32.0-35.9); MEAN CELL VOLUME 88.4 fl (80-96); MEAN PLT VOLUME 12.6 fl (7.5-11.1); MONO % 7.2 % (3.8-10.2); NEUT % 75.9 % (42.8-82.8); PLATELET COUNT 122 K/MM3 (134-434); RBC 5.14 M/mm3 (4.00-5.60); WHITE BLOOD COUNT 13.4 K/mm3 (4.0-10.0)
[2020-06-26 07:35] LABS: INR 1.24 (0.83-1.09); PROTHROMBIN TIME (PATIENT) 14.7 SEC (9.7-13.0)
[2020-06-26 07:59] LABS: BLOOD UREA NITROGEN 12.5 mg/dL (7-18); CALCIUM 9.3 mg/dL (8.5-10.1); CREATININE 0.7 mg/dL (0.55-1.3); POTASSIUM 3.9 mmol/L (3.5-5.1)
[2020-06-26 08:42] LABS: PLATELET ESTIMATE DECREASED
[2020-06-26] MEDS: amLODIPine BESYLATE 5 MG TABLET (FP) PO SCH (09:39)
--- NOTE | 2020-06-26 10:19 | PN ---
Physical Exam: SUBJECTIVE: Patient seen and examined at bedside. No acute events reported overnight. OBJECTIVE: Vital Signs Period Temp Pulse Resp BP Sys/Anna Pulse Ox Last 24 Hr 98.3 F-98.6 F 72-81 18-18 139-147/57-82 95-97 GENERAL: AAOx3, in no acute distress;sitting in a chair HEENT: NCAT, PERRLA, EOMI, sclera anicteric, conjunctiva clear, oropharynx clear w/o exudates. MMM. NECK: Normal ROM, supple, no lymphadenopathy, JVD, or masses LUNGS: CTABL no wheezes/ rhonchi/ rales. No distress, speaks in full sentences. No increased work of breathing. HEART: RRR, normal S1 S2, no M/R/G, peripheral pulses 2+ and equal b/l ABDOMEN: Soft, NTND, + BS. No guarding or rebound. No hepatomegaly or splenomegaly. MSK: ROM WNL EXTREMITIES: R medial thigh apex/groin swelling/induration with tenderness to palptation covered in white gauze dressing. Scrotum non-swollen, non-tender to palptation. NEUROLOGICAL: CN II-XII intact. Normal speech, normal gait, no focal sensorimotor deficits. SKIN: Warm, Dry, normal turgor, no rashes or lesions noted Laboratory Results - last 24 hr CBC, BMP 06/26/20 07:06 06/26/20 07:06 06/25/20 06/25/20 06/25/20 11:47 16:23 20:52 WBC RBC Hgb Hct MCV MCH MCHC RDW Plt Count MPV Absolute Neuts (auto) Neutrophils % Lymphocytes % Monocytes % Eosinophils % Basophils % Nucleated RBC % Platelet Estimate Platelet Comment PT with INR INR Sodium Potassium Chloride Carbon Dioxide Anion Gap BUN Creatinine Est GFR (CKD-EPI)AfAm Est GFR (CKD-EPI)NonAf POC Glucometer 248 164 170 Random Glucose Calcium Vancomycin Pre-Dose 06/26/20 06/26/20 06/26/20 06:09 07:06 07:06 WBC 13.4 H RBC 5.14 Hgb 15.9 Hct 45.4 MCV 88.4 MCH 30.9 MCHC 34.9 RDW 13.0 Plt Count 122 L MPV 12.6 H Absolute Neuts (auto) 10.2 H Neutrophils % 75.9 Lymphocytes % 15.5 Monocytes % 7.2 Eosinophils % 1.1 Basophils % 0.3 Nucleated RBC % 0 Platelet Estimate Decreased Platelet Comment Present PT with INR INR Sodium 140 Potassium 3.9 Chloride 105 Carbon Dioxide 30 Anion Gap 5 L BUN 12.5 Creatinine 0.7 Est GFR (CKD-EPI)AfAm 131.17 Est GFR (CKD-EPI)NonAf 113.17 POC Glucometer 164 Random Glucose 195 H Calcium 9.3 Vancomycin Pre-Dose 06/26/20 06/26/20 07:06 09:12 WBC RBC Hgb Hct MCV MCH MCHC RDW Plt Count MPV Absolute Neuts (auto) Neutrophils % Lymphocytes % Monocytes % Eosinophils % Basophils % Nucleated RBC % Platelet Estimate Platelet Comment PT with INR 14.70 H INR 1.24 H Sodium Potassium Chloride Carbon Dioxide Anion Gap BUN Creatinine Est GFR (CKD-EPI)AfAm Est GFR (CKD-EPI)NonAf POC Glucometer Random Glucose Calcium Vancomycin Pre-Dose 5.4 Active Medications Generic Name Dose Route Start Last Admin Trade Name Freq PRN Reason Stop Dose Admin Acetaminophen 650 mg 06/25/20 17:18 06/26/20 06:12 Tylenol - PO 650 mg Q4H PRN Administration PAIN LEVEL 7 - 10 Amlodipine Besylate 5 mg 06/24/20 09:00 06/26/20 09:39 Norvasc - PO 5 mg DAILY TAWANDA Administration Enoxaparin Sodium 40 mg 06/23/20 10:00 06/25/20 09:43 Lovenox - SQ 40 mg DAILY TAWANDA Administration Piperacillin Sod/Tazobactam 100 mls @ 200 mls/hr 06/23/20 10:15 06/26/20 09:39 Sod 4.5 gm/ Dextrose IVPB 200 mls/hr Q8H-IV TAWANDA Administration Protocol Vancomycin HCl 1,250 mg/ 250 mls @ 166.667 mls/hr 06/23/20 22:30 06/25/20 21:55 Dextrose IVPB 166.667 mls/hr BID@1030,2230 TAWANDA Administration Protocol Insulin Aspart 1 vial 06/24/20 07:00 06/26/20 06:16 Novolog Vial Sliding Scale - SQ 4 units ACHS TAWANDA Administration Protocol Insulin Detemir 25 units 06/24/20 07:00 06/26/20 06:14 Levemir Vial SQ 25 units AM [facility]ANDA Administration Metformin HCl 500 mg 06/24/20 07:00 06/26/20 06:13 Glucophage - PO 500 mg BID@0700,1630 TAWANDA Administration Sitagliptin Phosphate 100 mg 06/24/20 07:00 06/26/20 06:14 Januvia - PO 100 mg DAILY@0700 TAWANDA Administration ASSESSMENT/PLAN: 45 y/o M with with no significant PMH presenting with R groin pain/swelling/tenderness for 7 days. Admitted for acute cellulitis. #R Groin/proximal medial thigh Cellulitis -CT Pelvis - subcutaneous edema R groin extending to medial aspect of upper mid thigh -VSS stable -leukocytosis: wbc 13.4 today; improving -c/w Vanc/Zosyn as per ID -Blood cx pending; wound Cx negative for growth -Surgery consult: Dr. Russell to do I & D today -Urology consult: Dr. Azar does not want surgical intervention at this time -Groin U/S-3 x 2 x 1.1 heterogenous structure abscess vs enlarged lymph node #DM - newly diagnosed during this visit -fasting sugar today ~200s -A1c: 10.9 -c/w ISS w/ BGM -received diabetes counseling by nursing staff and by primary team -Endocrine consult: Dr. López started Metformin BID 500 mg, Januvia 100 mg daily, 25 U Levemir in the AM #HTN -c/w Norvasc 5 mg -Patient will benefit from JAMEEL/ARB at discharge -patient has no history of HTN #R Renal lower pole Calculus -incidental finding -non-obstructing -Urology out-patient f/u #Chronic Thrombocytopenia -no bruising or bleeding noted today -no workup needed at this time -continue to monitor -heme f/u outpt #FEN -no standing fluids -monitor lytes; replete PRN -diabetic sodium controlled diet #Ppx -DVT: Lovenox SQ held for OR dispo: continue to monitor in m/s Visit type - Emergency Visit Emergency Visit: No - New Patient This patient is new to me today: No - Critical Care Critical Care patient: No - Discharge Referral Referred to [facility] Med P.C.: No ATTENDING PHYSICIAN STATEMENT I saw and evaluated the patient. I reviewed the resident's note and discussed the case with the resident. I agree with the resident's findings and plan as documented. SUBJECTIVE: OBJECTIVE: ASSESSMENT AND PLAN:
--- NOTE | 2020-06-26 10:25 | PN ---
Teaching Attending Note Name of Resident: Colin Pettit ATTENDING PHYSICIAN STATEMENT I saw and evaluated the patient. I reviewed the resident's note and discussed the case with the resident. I agree with the resident's findings and plan as documented. SUBJECTIVE: pt seen and examined OBJECTIVE: Last Vital Signs Temp Pulse Resp BP Pulse Ox 98.6 F 72 18 139/81 97 06/26/20 06:00 06/26/20 06:00 06/26/20 06:00 06/26/20 06:00 06/26/20 06:00 GENERAL: Awake, alert, and fully oriented, in no acute distress. HEAD: Normal with no signs of trauma. EYES: Pupils equal, round and reactive to light, sclera anicteric, conjunctiva clear. LUNGS: Breath sounds equal, clear to auscultation bilaterally. No wheezes, and no crackles. No accessory muscle use. HEART: Regular rate and rhythm, normal S1 and S2 ABDOMEN: Soft, nontender, not distended UPPER EXTREMITIES: 2+ pulses, warm, well-perfused. No cyanosis. No clubbing. No peripheral edema. LOWER EXTREMITIES: 2+ pulses, warm, well-perfused. No calf tenderness. No peripheral edema. NEUROLOGICAL: Cranial nerves II-XII intact. Normal speech. 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 CBCD WBC 13.4 K/mm3 (4.0-10.0) H 06/26/20 07:06 RBC 5.14 M/mm3 (4.00-5.60) 06/26/20 07:06 Hgb 15.9 GM/dL (11.7-16.9) 06/26/20 07:06 Hct 45.4 % (35.4-49) 06/26/20 07:06 MCV 88.4 fl (80-96) 06/26/20 07:06 MCHC 34.9 g/dl (32.0-35.9) 06/26/20 07:06 RDW 13.0 % (11.9-15.9) 06/26/20 07:06 Plt Count 122 K/MM3 (134-434) L 06/26/20 07:06 MPV 12.6 fl (7.5-11.1) H 06/26/20 07:06 CMP Sodium 140 mmol/L (136-145) 06/26/20 07:06 Potassium 3.9 mmol/L (3.5-5.1) 06/26/20 07:06 Chloride 105 mmol/L (98-107) 06/26/20 07:06 Carbon Dioxide 30 mmol/L (21-32) 06/26/20 07:06 Anion Gap 5 MMOL/L (8-16) L 06/26/20 07:06 BUN 12.5 mg/dL (7-18) 06/26/20 07:06 Creatinine 0.7 mg/dL (0.55-1.3) 06/26/20 07:06 Calcium 9.3 mg/dL (8.5-10.1) 06/26/20 07:06 Total Bilirubin 0.8 mg/dL (0.2-1) 06/23/20 10:55 AST 10 U/L (15-37) L 06/23/20 10:55 ALT 22 U/L (13-61) 06/23/20 10:55 Alkaline Phosphatase 149 U/L (45-117) H 06/23/20 10:55 Total Protein 6.6 g/dl (6.4-8.2) 06/23/20 10:55 Albumin 3.3 g/dl (3.4-5.0) L 06/23/20 10:55 Active Medications Acetaminophen (Tylenol -) 650 mg PO Q4H PRN PRN Reason: PAIN LEVEL 7 - 10 Last Admin: 06/26/20 06:12 Dose: 650 mg Documented by: Amlodipine Besylate (Norvasc -) 5 mg PO DAILY [facility] Last Admin: 06/26/20 09:39 Dose: 5 mg Documented by: Piperacillin Sod/Tazobactam (Sod 4.5 gm/ Dextrose) 100 mls @ 200 mls/hr IVPB Q8H-IV [facility]; Protocol Last Admin: 06/26/20 09:39 Dose: 200 mls/hr Documented by: Vancomycin HCl 1,250 mg/ (Dextrose) 250 mls @ 166.667 mls/hr IVPB BID@1030,2230 [facility]; Protocol Last Admin: 06/25/20 21:55 Dose: 166.667 mls/hr Documented by: Insulin Aspart (Novolog Vial Sliding Scale -) 1 vial SQ ACHS [facility]; Protocol Last Admin: 06/26/20 06:16 Dose: 4 units Documented by: Insulin Detemir (Levemir Vial) 25 units SQ AM [facility] Last Admin: 06/26/20 06:14 Dose: 25 units Documented by: Metformin HCl (Glucophage -) 500 mg PO BID@0700,1630 [facility] Last Admin: 06/26/20 06:13 Dose: 500 mg Documented by: Sitagliptin Phosphate (Januvia -) 100 mg PO DAILY@0700 [facility] Last Admin: 06/26/20 06:14 Dose: 100 mg Documented by: ASSESSMENT AND PLAN: 45 year old male with no significant PMH, presents with R groin pain/swelling/tenderness, found to have acute cellulitis and newly diagnosed DM2. # Sepsis due to R Groin/proximal medial thigh Cellulutitis/abscess recurrent abscess, keep area dry s/p I&D abscess re-forming, another I&D today Afebrile Blood Cx negative to date wound culture pending Leukocytosis trending down Abx per ID Surgery consult appreciated ID consult appreciated # newly diagnosed DM 2 Insulin regimen and education Diet, lifestyle modification discussed HgA1c 10.9 HTN R renal calculus for outpatient follow up with urology Chronic Thrombocytopenia DVT Px - Lovenox SQ
[2020-06-26] MEDS ORDERED: PT OWN MED DRAWER 7, Y5N ONE ×3 (10:27→21:18)
[2020-06-26] MEDS: VANCOMYCIN 1,250 MG in DEXTROSE 5%-WATER - 250 ML IVPB SCH (10:29)
[2020-06-26] MEDS: ENOXAPARIN NA (PORCINE) 40 MG/0.4 ML DISP.SYRIN SQ SCH (11:39)
--- NOTE | 2020-06-26 14:49 | PN ---
Progress Note (short form) - Note Progress Note: US shows small absccess- for perative drainage today Vital Signs Period Temp Pulse Resp BP Sys/Anna Pulse Ox Last 24 Hr 98.1 F-98.6 F 68-81 18-18 126-147/57-82 95-99 cor-rrr lungs clear abd soft,nt no scrotal tenderness +erythema and tender induration right groin ext no edema CBC, BMP 06/26/20 07:06 06/26/20 07:06 Microbiology 06/23/20 07:00 Abscess Gram Stain - Final 06/23/20 07:00 Abscess Wound Culture - Final NO GROWTH AFTER 48 HOURS INCUBATION 06/22/20 22:50 Blood - Peripheral Venous Blood Culture - Preliminary NO GROWTH OBTAINED AFTER 72 HOURS, INCUBATION TO CONTINUE FOR 2 DAYS. 06/22/20 22:50 Blood - Peripheral Venous Blood Culture - Preliminary NO GROWTH OBTAINED AFTER 72 HOURS, INCUBATION TO CONTINUE FOR 2 DAYS. a/p operative incision and drainage of groin abscess today s/p needle aspiration of right groin abscess- continue vancomycin and zosyn f/u cultures increase vancomycin dosing newly diagnosed DM- Problem List - Problems (1) Abscess or cellulitis of groin Code(s): AKI0469 - (2) New onset type 2 diabetes mellitus Code(s): E11.9 - TYPE 2 DIABETES MELLITUS WITHOUT COMPLICATIONS
[2020-06-26] MEDS ORDERED: LIDOCAINE 1%/EPI 1:100000 (50 ML MULTI DOSE VIAL) ONE (15:39)
[2020-06-26] MEDS ORDERED: LIDOCAINE HCL 1%, 10 MG/ML (20ML VIAL) ONE (15:39)
[2020-06-26] MEDS ORDERED: MIDAZOLAM HCL 2 MG/2 ML SINGLE DOSE VIAL ONE (16:55)
[2020-06-26] MEDS ORDERED: PROPOFOL 20 ML ONE (17:02)
--- NOTE | 2020-06-26 17:33 | OP ---
Operative Note - Note: Operative Date: 06/26/20 Pre-Operative Diagnosis: right inguino-femoral abscess Operation: I & D right inguino-femoral abscess Findings: 8 x 4 cm abscess cavity draining 30 ml purulent fluid Post-Operative Diagnosis: Same as Pre-op Surgeon: Mike Russell Anesthesia: General Estimated Blood Loss (mls): 5 Operative Report Dictated: Yes
--- NOTE | 2020-06-26 19:58 | OP ---
DATE OF OPERATION: 06/26/2020 PROCEDURE: Incision and drainage right inguinal femoral abscess. PREOPERATIVE DIAGNOSIS: Right inguinal femoral abscess. POSTOPERATIVE DIAGNOSIS: Right inguinal femoral abscess. SURGEON: Mike Russell MD. ANESTHESIA: General via laryngeal mask airway. FINDINGS ON PROCEDURE: This is a 45-year-old male newly diagnosed with diabetes mellitus who presents with inguinal femoral pain, swelling, and tenderness, for which a CT scan to the pelvis revealed cellulitis to the area. Needle aspiration of the area was done at the bedside, which revealed blood. The area was about 8 x 4 cm in size became more fluctuant, and repeat ultrasound of the area revealed complex fluid-filled abscess. Patient's white blood cell count was measured about 14,000. Patient was advised incision and drainage of the abscess. Consent was obtained after discussing the risks, benefits, and alternatives to the procedure. DESCRIPTION OF PROCEDURE: Patient was brought to the operating room and placed in supine position on the operating table. Laryngeal mask airway was administered. Patient was then placed in the frogleg position. The anal area was prepped and draped in the usual sterile fashion. Using scalpel blade # 10, a 6-cm oblique inguinal incision was made and taken down to subcutaneous tissue. About 30 mL of serous fluid was drained, and the fluid was sent for culture and sensitivity. The cavity was digitally explored to take down loculations. After that the wound was copiously irrigated with sterile normal saline until return was clear. The wound was then packed with 1 inch iodoform strip and covered with sterile dressing. Patient was placed back in supine position and successfully extubated. Patient was transferred to the post anesthesia care unit in satisfactory condition. Estimated blood loss was about 5 mL. Wound class was dirty. Patient was placed on intravenous antibiotics upon admission. Ruba [id number] MTDD
[2020-06-26] MEDS ORDERED: INSULIN (NOVOLOG) ASPART 100 UNITS/ML 10ML VIAL ONE (21:12)
[2020-06-26] MEDS ORDERED: VANCOMYCIN HCL 1,500 MG in DEXTROSE 5%-WATER - 500 ML IVPB SCH (22:00)
[2020-06-26] MEDS: VANCOMYCIN HCL 1,500 MG in DEXTROSE 5%-WATER - 500 ML IVPB SCH (22:24)
[2020-06-27] MEDS ORDERED: DEXTROSE 5%-WATER 100 ML IVPB ONE ×4 (01:53→23:33)
[2020-06-27] MEDS ORDERED: PIPERACILLIN/TAZOBACTAM 4.5 GM VIAL IVPB ONE ×4 (01:53→23:33)
[2020-06-27] MEDS: PIPERACILLIN/TAZOB 4.5 GM 4.5 GM in DEXTROSE 5%-WATER 100 ML IVPB SCH ×3 (02:02→17:47)
[2020-06-27] MEDS: INSULIN SLIDING SCALE (NOVOLOG) 1 VIAL SQ SCH ×4 (06:14→21:36)
[2020-06-27] MEDS: metFORMIN HCL 500 MG TABLET (FP) PO SCH ×2 (06:14→17:47)
[2020-06-27] MEDS: INSULIN (LEVEMIR) 100 UNITS/ML UNITS SQ SCH (06:15)
[2020-06-27 06:51] LABS: BASO % 0.5 % (0-2.0); EOS % 1.2 % (0-4.5); HEMATOCRIT 42.8 % (35.4-49); HEMOGLOBIN 14.6 GM/dL (11.7-16.9); LYMPH % 13.7 % (8-40); MCH 29.8 pg (25.7-33.7); MCHC 34.2 g/dl (32.0-35.9); MEAN CELL VOLUME 87.3 fl (80-96); MONO % 7.2 % (3.8-10.2); NEUT % 77.4 % (42.8-82.8); PLATELET COUNT 133 K/MM3 (134-434); RDW 13.1 % (11.9-15.9); WHITE BLOOD COUNT 13.5 K/mm3 (4.0-10.0)
[2020-06-27 07:20] LABS: BLOOD UREA NITROGEN 10.4 mg/dL (7-18); CALCIUM 8.9 mg/dL (8.5-10.1); CREATININE 0.9 mg/dL (0.55-1.3)
[2020-06-27] MEDS ORDERED: morphine SULFATE 4 MG/ML VIAL IVPUSH ONE (09:45)
[2020-06-27] MEDS ORDERED: MORPHINE SULFATE 2 MG/ML VIAL IVPUSH ONE (09:45)
--- NOTE | 2020-06-27 09:46 | PN ---
Progress Note (short form) - Note Progress Note: feels well ambulating s/p drainage of 8 by 4 cm abscess- 30 cc purulent fluid drained Vital Signs Period Temp Pulse Resp BP Sys/Anna Pulse Ox Last 24 Hr 97.8 F-98.8 F 66-85 15-20 115-143/64-79 96-100 cor-rrr llungs clear abd soft,nt dressing intact ext no edema CBC, BMP 06/27/20 06:20 06/27/20 06:20 Microbiology 06/22/20 22:50 Blood - Peripheral Venous Blood Culture - Preliminary NO GROWTH OBTAINED AFTER 96 HOURS, INCUBATION TO CONTINUE FOR 1 DAYS. 06/22/20 22:50 Blood - Peripheral Venous Blood Culture - Preliminary NO GROWTH OBTAINED AFTER 96 HOURS, INCUBATION TO CONTINUE FOR 1 DAYS. 06/23/20 07:00 Abscess Gram Stain - Final 06/23/20 07:00 Abscess Wound Culture - Final NO GROWTH AFTER 48 HOURS INCUBATION a/p pod#1 s/p drainage of groin abscess- continue vanco/zosyn, operative cultures are pending s/p needle aspiration of right groin abscess- newly diagnosed DM- continue meds and diabetic teaching Problem List - Problems (1) Abscess or cellulitis of groin Code(s): [id number] - (2) New onset type 2 diabetes mellitus Code(s): E11.9 - TYPE 2 DIABETES MELLITUS WITHOUT COMPLICATIONS
[2020-06-27] MEDS: ENOXAPARIN NA (PORCINE) 40 MG/0.4 ML DISP.SYRIN SQ SCH (10:00)
[2020-06-27] MEDS: amLODIPine BESYLATE 5 MG TABLET (FP) PO SCH (10:00)
[2020-06-27] MEDS: VANCOMYCIN HCL 1,500 MG in DEXTROSE 5%-WATER - 500 ML IVPB SCH ×2 (10:46→20:59)
--- NOTE | 2020-06-27 11:07 | PN ---
Progress Note (short form) - Note Progress Note: Surgery: Pt given some IV morphine for dressing change today. Vital Signs Period Temp Pulse Resp BP Sys/Anna Pulse Ox Last 24 Hr 97.8 F-98.8 F 66-85 15-20 115-143/64-79 96-100 GEN: A&0x3 Right upper thigh: packing removed today. Some bleeding with no purulent drainage. Wound irrigated. Repacked with 4x4 gauze/ABD pad CBC, BMP 06/27/20 06:20 06/27/20 06:20 Microbiology 06/23/20 07:00 Abscess Gram Stain - Final 06/23/20 07:00 Abscess Wound Culture - Final NO GROWTH AFTER 48 HOURS INCUBATION A/p: 45 yo male s/p Right upper thigh I&D, POD#1 Pt seen today with Dr. INTERIANO Recommend daily showers with 4x4 gauze/abd to groin. Pack incision lightly with open 4x4 gauze. Instructions given to the patient today in Pashto with the nursing staff. ABX as per ID Follow up with Dr. INTERIANO in the office next week
--- NOTE | 2020-06-27 11:17 | PN ---
Teaching Attending Note Name of Resident: Colin Pettit ATTENDING PHYSICIAN STATEMENT I saw and evaluated the patient. I reviewed the resident's note and discussed the case with the resident. I agree with the resident's findings and plan as documented. SUBJECTIVE: pt seen and examined at bedside OBJECTIVE: Last Vital Signs Temp Pulse Resp BP Pulse Ox 98.8 F 77 18 115/66 97 06/27/20 06:00 06/27/20 06:00 06/27/20 06:00 06/27/20 06:00 06/27/20 06:00 GENERAL: Awake, alert, and fully oriented, in no acute distress. LUNGS: Breath sounds equal, clear to auscultation bilaterally. No wheezes, and no crackles. No accessory muscle use. HEART: Regular rate and rhythm, normal S1 and S2 ABDOMEN: Soft, nontender, not distended LOWER EXTREMITIES: 2+ pulses, warm, well-perfused. No calf tenderness. No peripheral edema. 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 CBCD WBC 13.5 K/mm3 (4.0-10.0) H 06/27/20 06:20 RBC 4.90 M/mm3 (4.00-5.60) 06/27/20 06:20 Hgb 14.6 GM/dL (11.7-16.9) 06/27/20 06:20 Hct 42.8 % (35.4-49) 06/27/20 06:20 MCV 87.3 fl (80-96) 06/27/20 06:20 MCHC 34.2 g/dl (32.0-35.9) 06/27/20 06:20 RDW 13.1 % (11.9-15.9) 06/27/20 06:20 Plt Count 133 K/MM3 (134-434) L 06/27/20 06:20 MPV 12.0 fl (7.5-11.1) H 06/27/20 06:20 CMP Sodium 139 mmol/L (136-145) 06/27/20 06:20 Potassium 4.0 mmol/L (3.5-5.1) 06/27/20 06:20 Chloride 103 mmol/L (98-107) 06/27/20 06:20 Carbon Dioxide 28 mmol/L (21-32) 06/27/20 06:20 Anion Gap 8 MMOL/L (8-16) 06/27/20 06:20 BUN 10.4 mg/dL (7-18) 06/27/20 06:20 Creatinine 0.9 mg/dL (0.55-1.3) 06/27/20 06:20 Calcium 8.9 mg/dL (8.5-10.1) 06/27/20 06:20 Total Bilirubin 0.8 mg/dL (0.2-1) 06/23/20 10:55 AST 10 U/L (15-37) L 06/23/20 10:55 ALT 22 U/L (13-61) 06/23/20 10:55 Alkaline Phosphatase 149 U/L (45-117) H 06/23/20 10:55 Total Protein 6.6 g/dl (6.4-8.2) 06/23/20 10:55 Albumin 3.3 g/dl (3.4-5.0) L 06/23/20 10:55 Active Medications Acetaminophen (Tylenol -) 650 mg PO Q4H PRN PRN Reason: PAIN LEVEL 7 - 10 Last Admin: 06/26/20 19:32 Dose: 650 mg Documented by: Amlodipine Besylate (Norvasc -) 5 mg PO DAILY [facility] Last Admin: 06/27/20 10:00 Dose: 5 mg Documented by: Enoxaparin Sodium (Lovenox -) 40 mg SQ DAILY [facility] Last Admin: 06/27/20 10:00 Dose: 40 mg Documented by: Piperacillin Sod/Tazobactam (Sod 4.5 gm/ Dextrose) 100 mls @ 200 mls/hr IVPB Q8H-IV [facility]; Protocol Last Admin: 06/27/20 10:01 Dose: 200 mls/hr Documented by: Vancomycin HCl 1,500 mg/ (Dextrose) 500 mls @ 250 mls/hr IVPB Q12H [facility]; Protocol Last Admin: 06/27/20 10:46 Dose: 250 mls/hr Documented by: Insulin Aspart (Novolog Vial Sliding Scale -) 1 vial SQ ACHS [facility]; Protocol Last Admin: 06/27/20 06:14 Dose: 4 units Documented by: Insulin Detemir (Levemir Vial) 25 units SQ AM [facility] Last Admin: 06/27/20 06:15 Dose: 25 units Documented by: Metformin HCl (Glucophage -) 500 mg PO BID@0700,1630 [facility] Last Admin: 06/27/20 06:14 Dose: 500 mg Documented by: Sitagliptin Phosphate (Januvia -) 100 mg PO DAILY@0700 [facility] Last Admin: 06/27/20 06:14 Dose: 100 mg Documented by: ASSESSMENT AND PLAN: 45 year old male with no significant PMH, presents with R groin pain/swel ling/tenderness, found to have acute cellulitis and newly diagnosed DM2. # Sepsis due to R Groin/proximal medial thigh Cellulutitis/abscess recurrent abscess, keep area dry s/p I&D x2 had drainage of abscess with 30 cc purulent fluid drained Afebrile Blood Cx negative to date wound culture pending Leukocytosis Abx per ID Surgery consult appreciated ID consult appreciated new onset DM 2 HTN R renal calculus for outpatient follow up with urology Chronic Thrombocytopenia DVT Px - Lovenox SQ
--- NOTE | 2020-06-27 11:46 | PN ---
Physical Exam: SUBJECTIVE: Patient seen and examined at bedside. No acute events reported overnight. This morning patient has no concerns or complaints. OBJECTIVE: Vital Signs Period Temp Pulse Resp BP Sys/Anna Pulse Ox Last 24 Hr 97.8 F-98.8 F 66-85 15-20 115-143/64-79 96-100 GENERAL: AAOx3, in no acute distress; laying in bed HEENT: NCAT, PERRLA, EOMI, sclera anicteric, conjunctiva clear, oropharynx clear w/o exudates. MMM. NECK: Normal ROM, supple, no lymphadenopathy, JVD, or masses LUNGS: CTABL no wheezes/ rhonchi/ rales. No distress, speaks in full sentences. No increased work of breathing. HEART: RRR, normal S1 S2, no M/R/G, peripheral pulses 2+ and equal b/l ABDOMEN: Soft, NTND, + BS. No guarding or rebound. No hepatomegaly or splenomegaly. MSK: ROM WNL EXTREMITIES: R medial thigh apex/groin swelling/induration with tenderness to palptation covered in white gauze dressing. Scrotum non-swollen, non-tender to palptation. NEUROLOGICAL: CN II-XII intact. Normal speech, normal gait, no focal sensorimotor deficits. SKIN: Warm, Dry, normal turgor, no rashes or lesions noted Laboratory Results - last 24 hr CBC, BMP 06/27/20 06:20 06/27/20 06:20 06/26/20 06/26/20 06/27/20 17:57 21:15 06:13 WBC RBC Hgb Hct MCV MCH MCHC RDW Plt Count MPV Absolute Neuts (auto) Neutrophils % Lymphocytes % Monocytes % Eosinophils % Basophils % Nucleated RBC % Sodium Potassium Chloride Carbon Dioxide Anion Gap BUN Creatinine Est GFR (CKD-EPI)AfAm Est GFR (CKD-EPI)NonAf POC Glucometer 115 159 173 Random Glucose Calcium 06/27/20 06/27/20 06:20 06:20 WBC 13.5 H RBC 4.90 Hgb 14.6 Hct 42.8 MCV 87.3 MCH 29.8 MCHC 34.2 RDW 13.1 Plt Count 133 L MPV 12.0 H Absolute Neuts (auto) 10.5 H Neutrophils % 77.4 Lymphocytes % 13.7 Monocytes % 7.2 Eosinophils % 1.2 Basophils % 0.5 Nucleated RBC % 0 Sodium 139 Potassium 4.0 Chloride 103 Carbon Dioxide 28 Anion Gap 8 BUN 10.4 Creatinine 0.9 Est GFR (CKD-EPI)AfAm 118.30 Est GFR (CKD-EPI)NonAf 102.07 POC Glucometer Random Glucose 169 H Calcium 8.9 Active Medications Generic Name Dose Route Start Last Admin Trade Name Freq PRN Reason Stop Dose Admin Acetaminophen 650 mg 06/26/20 17:53 06/26/20 19:32 Tylenol - PO 650 mg Q4H PRN Administration PAIN LEVEL 7 - 10 Amlodipine Besylate 5 mg 06/27/20 10:00 06/27/20 10:00 Norvasc - PO 5 mg DAILY [facility] Administration Enoxaparin Sodium 40 mg 06/27/20 10:00 06/27/20 10:00 Lovenox - SQ 40 mg DAILY [facility] Administration Piperacillin Sod/Tazobactam 100 mls @ 200 mls/hr 06/26/20 18:00 06/27/20 10:01 Sod 4.5 gm/ Dextrose IVPB 200 mls/hr Q8H-IV [facility] Administration Protocol Vancomycin HCl 1,500 mg/ 500 mls @ 250 mls/hr 06/26/20 22:00 06/27/20 10:46 Dextrose IVPB 250 mls/hr Q12H [facility] Administration Protocol Insulin Aspart 1 vial 06/26/20 22:00 06/27/20 06:14 Novolog Vial Sliding Scale - SQ 4 units ACHS [facility] Administration Protocol Insulin Detemir 25 units 06/27/20 07:00 06/27/20 06:15 Levemir Vial SQ 25 units AM [facility] Administration Metformin HCl 500 mg 06/27/20 07:00 06/27/20 06:14 Glucophage - PO 500 mg BID@0700,1630 [facility] Administration Sitagliptin Phosphate 100 mg 06/27/20 07:00 06/27/20 06:14 Januvia - PO 100 mg DAILY@0700 [facility] Administration ASSESSMENT/PLAN: 45 y/o M with with no significant PMH presenting with R groin pain/swelling/tenderness for 7 days. Admitted for acute cellulitis. #R Groin/proximal medial thigh Cellulitis -CT Pelvis - subcutaneous edema R groin extending to medial aspect of upper mid thigh -VSS stable -leukocytosis: wbc 13.5 today -c/w Vanc/Zosyn as per ID -Blood cx pending; wound Cx negative for growth -Surgery consult: s/p I & D POD1 -Urology consult: Dr. Azar does not want surgical intervention at this time #DM - newly diagnosed during this visit -fasting sugar today ~150s -A1c: 10.9 -c/w ISS w/ BGM -received diabetes counseling by nursing staff and by primary team -Endocrine consult: Dr. López started Metformin BID 500 mg, Januvia 100 mg daily, 25 U Levemir in the AM #HTN -c/w Norvasc 5 mg -Patient will benefit from JAMEEL/ARB at discharge -patient has no history of HTN #R Renal lower pole Calculus -incidental finding -non-obstructing -Urology out-patient f/u #Chronic Thrombocytopenia -no bruising or bleeding noted today -no workup needed at this time -continue to monitor -heme f/u outpt #FEN -no standing fluids -monitor lytes; replete PRN -diabetic sodium controlled diet #Ppx -DVT: Lovenox SQ dispo: continue to monitor in m/s Visit type - Emergency Visit Emergency Visit: No - New Patient This patient is new to me today: No - Critical Care Critical Care patient: No - Discharge Referral Referred to [facility] Med P.C.: No ATTENDING PHYSICIAN STATEMENT I saw and evaluated the patient. I reviewed the resident's note and discussed the case with the resident. I agree with the resident's findings and plan as documented. SUBJECTIVE: OBJECTIVE: ASSESSMENT AND PLAN:
[2020-06-28] MEDS: PIPERACILLIN/TAZOB 4.5 GM 4.5 GM in DEXTROSE 5%-WATER 100 ML IVPB SCH ×3 (01:11→17:16)
[2020-06-28] MEDS: metFORMIN HCL 500 MG TABLET (FP) PO SCH ×2 (06:16→17:15)
[2020-06-28] MEDS: INSULIN SLIDING SCALE (NOVOLOG) 1 VIAL SQ SCH ×4 (06:33→21:33)
[2020-06-28] MEDS: INSULIN (LEVEMIR) 100 UNITS/ML UNITS SQ SCH (06:34)
[2020-06-28 06:53] LABS: BASO % 0.4 % (0-2.0); EOS % 1.7 % (0-4.5); HEMATOCRIT 42.7 % (35.4-49); HEMOGLOBIN 14.5 GM/dL (11.7-16.9); LYMPH % 17.9 % (8-40); MCH 30.1 pg (25.7-33.7); MEAN CELL VOLUME 88.3 fl (80-96); MEAN PLT VOLUME 12.2 fl (7.5-11.1); MONO % 7.2 % (3.8-10.2); NEUT % 72.8 % (42.8-82.8); PLATELET COUNT 129 K/MM3 (134-434); RBC 4.84 M/mm3 (4.00-5.60); RDW 12.8 % (11.9-15.9); WHITE BLOOD COUNT 11.2 K/mm3 (4.0-10.0)
[2020-06-28 07:16] LABS: BLOOD UREA NITROGEN 13.6 mg/dL (7-18); CALCIUM 8.8 mg/dL (8.5-10.1); CREATININE 0.9 mg/dL (0.55-1.3); POTASSIUM 3.9 mmol/L (3.5-5.1)
--- NOTE | 2020-06-28 09:47 | PN ---
Progress Note (short form) - Note Progress Note: feels well no complaints s/p drainage of 8 by 4 cm abscess- 30 cc purulent fluid drained- pod #2 Vital Signs Period Temp Pulse Resp BP Sys/Anna Pulse Ox Last 24 Hr 98.2 F-98.8 F 70-76 18-18 127-132/55-71 96-97 cor-rrr llungs clear abd soft,nt dressing intact, no purulence/drainage noted ext no edema CBC, BMP 06/28/20 06:18 06/28/20 06:18 Microbiology 06/26/20 17:21 Groin - Right Gram Stain - Final 06/26/20 17:21 Groin - Right Wound Culture - Preliminary NO GROWTH OBTAINED AFTER 24 HOURS INCUBATION, JOLYNN NCUBATED. 06/22/20 22:50 Blood - Peripheral Venous Blood Culture - Final NO GROWTH AFTER 5 DAYS INCUBATION 06/22/20 22:50 Blood - Peripheral Venous Blood Culture - Final NO GROWTH AFTER 5 DAYS INCUBATION 06/23/20 07:00 Abscess Gram Stain - Final 06/23/20 07:00 Abscess Wound Culture - Final NO GROWTH AFTER 48 HOURS INCUBATION a/p pod#2 s/p drainage of groin abscess- continue vanco/zosyn, operative cultures are pending s/p needle aspiration of right groin abscess- surgical f/u f/u cultures hopefully home in am on po meds newly diagnosed DM- continue meds and diabetic teaching Problem List - Problems (1) Abscess or cellulitis of groin Code(s): [id number] - (2) New onset type 2 diabetes mellitus Code(s): E11.9 - TYPE 2 DIABETES MELLITUS WITHOUT COMPLICATIONS
[2020-06-28] MEDS ORDERED: PIPERACILLIN/TAZOBACTAM 4.5 GM VIAL IVPB ONE ×3 (10:06→23:57)
[2020-06-28] MEDS ORDERED: DEXTROSE 5%-WATER 100 ML IVPB ONE ×3 (10:06→23:57)
[2020-06-28] MEDS: amLODIPine BESYLATE 5 MG TABLET (FP) PO SCH (10:17)
[2020-06-28] MEDS: VANCOMYCIN HCL 1,500 MG in DEXTROSE 5%-WATER - 500 ML IVPB SCH ×2 (11:02→21:00)
[2020-06-28] MEDS ORDERED: INSULIN (NOVOLOG) ASPART 100 UNITS/ML 10ML VIAL ONE ×2 (11:06→19:33)
--- NOTE | 2020-06-28 12:16 | PN ---
Progress Note, Physician Chief Complaint: S/P I & D of right inguino-femoral abscess History of Present Illness: minimal to no pain no active bleeding reported - Current Medication List Current Medications: Active Medications Acetaminophen (Tylenol -) 650 mg PO Q4H PRN PRN Reason: PAIN LEVEL 7 - 10 Last Admin: 06/26/20 19:32 Dose: 650 mg Documented by: Amlodipine Besylate (Norvasc -) 5 mg PO DAILY [facility] Last Admin: 06/28/20 10:17 Dose: 5 mg Documented by: Enoxaparin Sodium (Lovenox -) 40 mg SQ DAILY [facility] Last Admin: 06/27/20 10:00 Dose: 40 mg Documented by: Piperacillin Sod/Tazobactam (Sod 4.5 gm/ Dextrose) 100 mls @ 200 mls/hr IVPB Q8H-IV [facility]; Protocol Last Admin: 06/28/20 10:17 Dose: 200 mls/hr Documented by: Vancomycin HCl 1,500 mg/ (Dextrose) 500 mls @ 250 mls/hr IVPB Q12H [facility]; Protocol Last Admin: 06/28/20 11:02 Dose: 250 mls/hr Documented by: Insulin Aspart (Novolog Vial Sliding Scale -) 1 vial SQ ACHS [facility]; Protocol Last Admin: 06/28/20 11:02 Dose: 4 units Documented by: Insulin Detemir (Levemir Vial) 25 units SQ AM [facility] Last Admin: 06/28/20 06:34 Dose: 25 units Documented by: Metformin HCl (Glucophage -) 500 mg PO BID@0700,1630 [facility] Last Admin: 06/28/20 06:16 Dose: 500 mg Documented by: Sitagliptin Phosphate (Januvia -) 100 mg PO DAILY@0700 [facility] Last Admin: 06/28/20 06:16 Dose: 100 mg Documented by: - Objective Vital Signs: Vital Signs Temperature 98.8 F 06/28/20 06:00 Pulse Rate 75 06/28/20 06:00 Respiratory Rate 18 06/28/20 06:00 Blood Pressure 127/71 06/28/20 06:00 O2 Sat by Pulse Oximetry (%) 96 06/28/20 06:00 Wound/Incision: Yes: Clean/Dry, Other (no purulent discharge) Labs: CBC, BMP 06/28/20 06:18 06/28/20 06:18 INR, PTT INR 1.24 (0.83-1.09) H 06/26/20 07:06 Problem List - Problems (1) Abscess or cellulitis of groin Assessment/Plan: Daily wound care with showers and gauze dressing abx per ID No surgical contraindication for D/C planning f/u at office in one week Code(s): [id number] -
--- NOTE | 2020-06-28 13:31 | PN ---
Physical Exam: SUBJECTIVE: Patient seen and examined OBJECTIVE: Vital Signs Period Temp Pulse Resp BP Sys/Anna Pulse Ox Last 24 Hr 98.2 F-98.8 F 70-76 18-18 127-132/55-71 96-97 GENERAL: Awake, alert, and fully oriented, in no acute distress. LUNGS: Breath sounds equal, clear to auscultation bilaterally. No wheezes, and no crackles. No accessory muscle use. HEART: Regular rate and rhythm, normal S1 and S2 ABDOMEN: Soft, nontender, not distended LOWER EXTREMITIES: 2+ pulses, warm, well-perfused. No calf tenderness. No peripheral edema. 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 Laboratory Results - last 24 hr 06/27/20 06/27/20 06/28/20 17:14 21:29 06:18 WBC 11.2 H RBC 4.84 Hgb 14.5 Hct 42.7 MCV 88.3 MCH 30.1 MCHC 34.0 RDW 12.8 Plt Count 129 L MPV 12.2 H Absolute Neuts (auto) 8.1 H Neutrophils % 72.8 Lymphocytes % 17.9 D Monocytes % 7.2 Eosinophils % 1.7 Basophils % 0.4 Nucleated RBC % 0 Sodium Potassium Chloride Carbon Dioxide Anion Gap BUN Creatinine Est GFR (CKD-EPI)AfAm Est GFR (CKD-EPI)NonAf POC Glucometer 168 110 Random Glucose Calcium Vancomycin Pre-Dose 06/28/20 06/28/20 06/28/20 06:18 06:32 09:47 WBC RBC Hgb Hct MCV MCH MCHC RDW Plt Count MPV Absolute Neuts (auto) Neutrophils % Lymphocytes % Monocytes % Eosinophils % Basophils % Nucleated RBC % Sodium 139 Potassium 3.9 Chloride 106 Carbon Dioxide 27 Anion Gap 6 L BUN 13.6 Creatinine 0.9 Est GFR (CKD-EPI)AfAm 118.30 Est GFR (CKD-EPI)NonAf 102.07 POC Glucometer 178 Random Glucose 180 H Calcium 8.8 Vancomycin Pre-Dose 8.8 06/28/20 11:01 WBC RBC Hgb Hct MCV MCH MCHC RDW Plt Count MPV Absolute Neuts (auto) Neutrophils % Lymphocytes % Monocytes % Eosinophils % Basophils % Nucleated RBC % Sodium Potassium Chloride Carbon Dioxide Anion Gap BUN Creatinine Est GFR (CKD-EPI)AfAm Est GFR (CKD-EPI)NonAf POC Glucometer 174 Random Glucose Calcium Vancomycin Pre-Dose Active Medications Generic Name Dose Route Start Last Admin Trade Name Freq PRN Reason Stop Dose Admin Acetaminophen 650 mg 06/26/20 17:53 06/26/20 19:32 Tylenol - PO 650 mg Q4H PRN Administration PAIN LEVEL 7 - 10 Amlodipine Besylate 5 mg 06/27/20 10:00 06/28/20 10:17 Norvasc - PO 5 mg DAILY [facility] Administration Enoxaparin Sodium 40 mg 06/27/20 10:00 06/27/20 10:00 Lovenox - SQ 40 mg DAILY [facility] Administration Piperacillin Sod/Tazobactam 100 mls @ 200 mls/hr 06/26/20 18:00 06/28/20 10:17 Sod 4.5 gm/ Dextrose IVPB 200 mls/hr Q8H-IV [facility] Administration Protocol Vancomycin HCl 1,500 mg/ 500 mls @ 250 mls/hr 06/26/20 22:00 06/28/20 11:02 Dextrose IVPB 250 mls/hr Q12H [facility] Administration Protocol Insulin Aspart 1 vial 06/26/20 22:00 06/28/20 11:02 Novolog Vial Sliding Scale - SQ 4 units ACHS [facility] Administration Protocol Insulin Detemir 25 units 06/27/20 07:00 06/28/20 06:34 Levemir Vial SQ 25 units AM [facility] Administration Metformin HCl 500 mg 06/27/20 07:00 06/28/20 06:16 Glucophage - PO 500 mg BID@0700,1630 [facility] Administration Sitagliptin Phosphate 100 mg 06/27/20 07:00 06/28/20 06:16 Januvia - PO 100 mg DAILY@0700 [facility] Administration ASSESSMENT/PLAN: 45 year old male with no significant PMH, presents with R groin pain/swelling/tenderness, found to have acute cellulitis and newly diagnosed DM2 . # Sepsis due to R Groin/proximal medial thigh Cellulutitis/abscess resolving recurrent abscess, keep area dry s/p I&D x2 Afebrile Blood Cx negative to date wound culture pending Leukocytosis, resolving Abx per ID Surgery consult appreciated ID consult appreciated case discussed with ID will give another day of IV abx and possible DC in AM new onset DM 2 HTN R renal calculus for outpatient follow up with urology Chronic Thrombocytopenia DVT Px - Lovenox SQ Visit type - Emergency Visit Emergency Visit: Yes ED Registration Date: 06/23/20 Care time: The patient presented to the Emergency Department on the above date and was hospitalized for further evaluation of their emergent condition. - New Patient This patient is new to me today: No - Critical Care Critical Care patient: No - Discharge Referral Referred to [facility] Med P.C.: No
[2020-06-28] MEDS: ENOXAPARIN NA (PORCINE) 40 MG/0.4 ML DISP.SYRIN SQ SCH (17:16)
[2020-06-28] MEDS: ACETAMINOPHEN 325 MG TABLET (FP) PO PRN (18:08)
[2020-06-29] MEDS: PIPERACILLIN/TAZOB 4.5 GM 4.5 GM in DEXTROSE 5%-WATER 100 ML IVPB SCH ×2 (00:59→10:51)
[2020-06-29] MEDS: ACETAMINOPHEN 325 MG TABLET (FP) PO PRN (06:43)
[2020-06-29] MEDS: metFORMIN HCL 500 MG TABLET (FP) PO SCH (06:44)
[2020-06-29] MEDS: INSULIN SLIDING SCALE (NOVOLOG) 1 VIAL SQ SCH ×2 (06:50→13:49)
[2020-06-29] MEDS: INSULIN (LEVEMIR) 100 UNITS/ML UNITS SQ SCH (06:50)
[2020-06-29] MEDS ORDERED: INSULIN (NOVOLOG) ASPART 100 UNITS/ML 10ML VIAL ONE (08:01)
[2020-06-29] MEDS ORDERED: INSULIN (LEVEMIR) 100 UNITS/ML UNITS SQ ONE ×2 (08:02)
[2020-06-29 08:11] LABS: BASO % 0.5 % (0-2.0); HEMATOCRIT 42.1 % (35.4-49); HEMOGLOBIN 14.2 GM/dL (11.7-16.9); LYMPH % 18.2 % (8-40); MCH 29.4 pg (25.7-33.7); MCHC 33.6 g/dl (32.0-35.9); MEAN CELL VOLUME 87.6 fl (80-96); MEAN PLT VOLUME 12.2 fl (7.5-11.1); MONO % 6.2 % (3.8-10.2); NEUT % 73.1 % (42.8-82.8); PLATELET COUNT 138 K/MM3 (134-434); RBC 4.81 M/mm3 (4.00-5.60); RDW 12.8 % (11.9-15.9); WHITE BLOOD COUNT 10.1 K/mm3 (4.0-10.0)
--- NOTE | 2020-06-29 09:31 | PN ---
Progress Note (short form) - Note Progress Note: feels well no complaints Vital Signs Period Temp Pulse Resp BP Sys/Anna Pulse Ox Last 24 Hr 98 F-98.5 F 64-76 18-20 134-150/77-84 97-98 cor-rrr lungs clear abd soft,nt groin wound is clean no drainage, still with induration ext no edema CBC, BMP 06/29/20 06:55 06/28/20 06:18 Microbiology 06/26/20 17:21 Groin - Right Gram Stain - Final 06/26/20 17:21 Groin - Right Wound Culture - Preliminary NO GROWTH OBTAINED AFTER 24 HOURS INCUBATION, REINCUBATED. 06/22/20 22:50 Blood - Peripheral Venous Blood Culture - Final NO GROWTH AFTER 5 DAYS INCUBATION 06/22/20 22:50 Blood - Peripheral Venous Blood Culture - Final NO GROWTH AFTER 5 DAYS INCUBATION 06/23/20 07:00 Abscess Gram Stain - Final 06/23/20 07:00 Abscess Wound Culture - Final NO GROWTH AFTER 48 HOURS INCUBATION a/p pod#3 s/p drainage of groin abscess- continue vanco/zosyn, operative cultures are pending s/p needle aspiration of right groin abscess- doing well, can switch to clindamycin 300 mg po tid for 7 days-f/u with surgery as outpt local wound care per surgery newly diagnosed DM- continue meds and diabetic teaching Problem List - Problems (1) Abscess or cellulitis of groin Code(s): [id number] - (2) New onset type 2 diabetes mellitus Code(s): E11.9 - TYPE 2 DIABETES MELLITUS WITHOUT COMPLICATIONS
--- NOTE | 2020-06-29 10:06 | DS ---
Physical Exam: SUBJECTIVE: Patient seen and examined OBJECTIVE: Vital Signs Period Temp Pulse Resp BP Sys/Anna Pulse Ox Last 24 Hr 98 F-98.4 F 64-67 18-20 134-143/77-80 97-98 PHYSICAL EXAM GENERAL: AAOx3, in no acute distress; laying in bed HEENT: NCAT, PERRLA, EOMI, sclera anicteric, conjunctiva clear, oropharynx clear w/o exudates. MMM. NECK: Normal ROM, supple, no lymphadenopathy, JVD, or masses LUNGS: CTABL no wheezes/ rhonchi/ rales. No distress, speaks in full sentences. No increased work of breathing. HEART: RRR, normal S1 S2, no M/R/G, peripheral pulses 2+ and equal b/l ABDOMEN: Soft, NTND, + BS. No guarding or rebound. No hepatomegaly or splenomegaly. MSK: ROM WNL EXTREMITIES: R medial thigh apex/groin covered in white gauze dressing. Scrotum non-swollen, non-tender to palptation. NEUROLOGICAL: CN II-XII intact. Normal speech, normal gait, no focal sensorimotor deficits. SKIN: Warm, Dry, normal turgor, no rashes or lesions noted LABS Laboratory Results - last 24 hr CBC, BMP 06/29/20 06:55 06/28/20 06:18 06/28/20 06/28/20 06/28/20 09:47 11:01 17:14 WBC RBC Hgb Hct MCV MCH MCHC RDW Plt Count MPV Absolute Neuts (auto) Neutrophils % Lymphocytes % Monocytes % Eosinophils % Basophils % Nucleated RBC % POC Glucometer 174 191 Vancomycin Pre-Dose 8.8 06/28/20 06/29/20 06/29/20 21:30 06:48 06:55 WBC 10.1 H RBC 4.81 Hgb 14.2 Hct 42.1 MCV 87.6 MCH 29.4 MCHC 33.6 RDW 12.8 Plt Count 138 MPV 12.2 H Absolute Neuts (auto) 7.4 Neutrophils % 73.1 Lymphocytes % 18.2 Monocytes % 6.2 Eosinophils % 2.0 Basophils % 0.5 Nucleated RBC % 0 POC Glucometer 136 167 Vancomycin Pre-Dose HOSPITAL COURSE: Patient is a 45 year old man without any past medical history who presented to the ER with complaints of groin pain. The pain is 8/10 and sharp in nature. The patient reports the pain to be worse when walking and the pain is mildly reliev ed with tylenol. The patient reported having this same issue in 2012 where he received surgery for I&D for an abscess in his right buttock and kim. The patient endorses having a fever yesterday but cannot recall the temperature. 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 Patient was initially managed with antibiotics but an abscess developed requiring surgical I and D with Dr. Russell. Post op the wound cultures were negative for any growth and the patient was discharged with oral antibiotics. Patient was also diagnosed with HTN and DM2 during this visit and was educated about his new diagnosis. Patient was put on HTN medication and Diabetes medication with outpatient follow up. Date of Admission:06/23/20 06/22/20-EKG-NSR 06/22/20-CXR-No acute cardiopulmonary findings. 06/23/20-CT Pelvis w contrast-Subcutaneous edema at the right groin extending beyond the [id number] of this study, compatible with cellulitis. No evidence of associated subcutaneous gas or fluid collection within the [id number]. If further imaging assessment for underlying abscess is clinically desired, recommend local ultrasound. Partially visualized right kidney demonstrates a 0.4 cm calculus within the lower pole. 06/25/20-US groin- Within the right inferior groin/upper thigh medially note is made of an approximately 3 x 2 x 1.1 cm heterogeneous structure which may represent an abscess with internal debris versus an enlarged lymph node. Correlate clinically. Date of Discharge: 06/29/20 Minutes to complete discharge: 36 Discharge Summary Problems reviewed: Yes Reason For Visit: ABSCESS OR CELLULITIS OF GROIN Current Active Problems Abscess or cellulitis of groin (Acute) New onset type 2 diabetes mellitus (Acute) Condition: Stable - Instructions Diet, Activity, Other Instructions: Your visit: You were admitted to the hospital for groin pain, swelling, and tenderness. You were found to have cellulitis of your groin which is a skin infection. You were treated with drainage of the area and antibiotics with improvement of your symptoms. We also found your sugar level to be high and you were diagnosed with diabetes mellitus during your stay. Additional Imaging Findings: -During your stay we did a CT scan of your pelvis which showed a 0.4 cm calculus in the lower pole of your Right kidney. Medications changes: NEW MEDS: -We started you on an antibiotic. Please take 1 TABLET OF CLINDAMYCIN 300 MG THREE TIMES A DAY FOR 7 DAYS. -We started you on a diabetes medicine. Please take 1 TABLET of METFORMIN 500 MG TWICE A DAY. -We started you on a diabetes medicine. Please take 1 TABLET of JANUVIA 100 MG ONCE A DAY. -We started you on a diabetes medicine. Please inject yourself with 25 UNITS OF LEVEMIR EVERY MORNING. -We are discharging you with a blood glucose monitor to check your blood sugar levels throughout the day with instructions attached. -Continue to take all other home medications as prescribed. Follow up: -Please follow-up with your general surgeon, Dr. Russell in 1 week. Keep area clean and dry. Shower daily and cover/pack slightly with open 4x4 gauze dry dressing. -Please follow-up with your infectious disease doctor, Dr. Santillan, in 1 week -Please follow up with your nicu rn, Dr. López, in 1 week. Since you are newly diagnosed with Diabetes it is important that you follow-up with your nicu rn for further diabetes education and mediation adjustments. -Visit with your Primary Care Provider in 2 weeks to followup about your kidney calculus. If you do not have a primary care provider you may make an appointment with Dr. Bond at the [facility] clinic located at [address] [place] [address] ([phone]). Additional Instructions: -Wound Instructions: daily showers with 4x4 gauze/abd to groin. Pack incision lightly with open 4x4 gauze. -You are being discharged to your home. -Please return to the Emergency Department if you experience worsening pain, fevers, chills, shortness of breath, or chest pain, or if you experience any worsening, new or concerning symptoms. Referrals: Jules Bond MD [Staff Physician] - Mike Russell MD [Staff Physician] - Prisca Santillan MD [Staff Physician] - 1 Week Good López MD [Staff Physician] - 1 Week Disposition: VNS/HOME HEALTH CARE - Home Medications Comprehensive Discharge Medication List: Ambulatory Orders Insulin (Levemir) [Levemir Vial] 25 unit SQ AM #1 vial 06/24/20 Metformin HCl [Glucophage] 500 mg PO BID 15 Days #30 tablet 06/24/20 Sitagliptin Phosphate [Januvia] 100 mg PO DAILY 15 Days #15 tablet 06/24/20 Clindamycin [Cleocin -] 300 mg PO TID 7 Days #21 capsule 06/29/20 This patient is new to me today: No Emergency Visit: No Critical Care patient: No - Discharge Referral Referred to [facility] Med P.C.: No ATTENDING PHYSICIAN STATEMENT I saw and evaluated the patient. I reviewed the resident's note and discussed the case with the resident. I agree with the resident's findings and plan as documented. SUBJECTIVE: OBJECTIVE: ASSESSMENT AND PLAN:
[2020-06-29] MEDS ORDERED: PT OWN MED DRAWER 7, Y5N ONE (10:09)
[2020-06-29] MEDS ORDERED: PIPERACILLIN/TAZOBACTAM 4.5 GM VIAL IVPB ONE (10:10)
[2020-06-29] MEDS ORDERED: DEXTROSE 5%-WATER 100 ML IVPB ONE (10:10)
[2020-06-29] MEDS: ENOXAPARIN NA (PORCINE) 40 MG/0.4 ML DISP.SYRIN SQ SCH (10:50)
[2020-06-29] MEDS: amLODIPine BESYLATE 5 MG TABLET (FP) PO SCH (10:51)
[2020-06-29] MEDS: VANCOMYCIN HCL 1,500 MG in DEXTROSE 5%-WATER - 500 ML IVPB SCH (10:51)
--- NOTE | 2020-06-29 12:59 | PN ---
Teaching Attending Note Name of Resident: Colin Pettit ATTENDING PHYSICIAN STATEMENT I saw and evaluated the patient. I reviewed the resident's note and discussed the case with the resident. I agree with the resident's findings and plan as documented. SUBJECTIVE: pt seen and examined OBJECTIVE: Last Vital Signs Temp Pulse Resp BP Pulse Ox 98 F 66 18 134/80 97 06/29/20 06:00 06/29/20 06:00 06/29/20 06:00 06/29/20 06:00 06/29/20 06:00 GENERAL: Awake, alert, and fully oriented, in no acute distress. LUNGS: Breath sounds equal, clear to auscultation bilaterally. No wheezes, and no crackles. No accessory muscle use. HEART: Regular rate and rhythm, normal S1 and S2 ABDOMEN: Soft, nontender, not distended LOWER EXTREMITIES: 2+ pulses, warm, well-perfused. No calf tenderness. No peripheral edema. 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 CBCD WBC 10.1 K/mm3 (4.0-10.0) H 06/29/20 06:55 RBC 4.81 M/mm3 (4.00-5.60) 06/29/20 06:55 Hgb 14.2 GM/dL (11.7-16.9) 06/29/20 06:55 Hct 42.1 % (35.4-49) 06/29/20 06:55 MCV 87.6 fl (80-96) 06/29/20 06:55 MCHC 33.6 g/dl (32.0-35.9) 06/29/20 06:55 RDW 12.8 % (11.9-15.9) 06/29/20 06:55 Plt Count 138 K/MM3 (134-434) 06/29/20 06:55 MPV 12.2 fl (7.5-11.1) H 06/29/20 06:55 CMP Sodium 139 mmol/L (136-145) 06/28/20 06:18 Potassium 3.9 mmol/L (3.5-5.1) 06/28/20 06:18 Chloride 106 mmol/L (98-107) 06/28/20 06:18 Carbon Dioxide 27 mmol/L (21-32) 06/28/20 06:18 Anion Gap 6 MMOL/L (8-16) L 06/28/20 06:18 BUN 13.6 mg/dL (7-18) 06/28/20 06:18 Creatinine 0.9 mg/dL (0.55-1.3) 06/28/20 06:18 Calcium 8.8 mg/dL (8.5-10.1) 06/28/20 06:18 Total Bilirubin 0.8 mg/dL (0.2-1) 06/23/20 10:55 AST 10 U/L (15-37) L 06/23/20 10:55 ALT 22 U/L (13-61) 06/23/20 10:55 Alkaline Phosphatase 149 U/L (45-117) H 06/23/20 10:55 Total Protein 6.6 g/dl (6.4-8.2) 06/23/20 10:55 Albumin 3.3 g/dl (3.4-5.0) L 06/23/20 10:55 Active Medications Acetaminophen (Tylenol -) 650 mg PO Q4H PRN PRN Reason: PAIN LEVEL 7 - 10 Last Admin: 06/29/20 06:43 Dose: 650 mg Documented by: Amlodipine Besylate (Norvasc -) 5 mg PO DAILY [facility] Last Admin: 06/29/20 10:51 Dose: 5 mg Documented by: Enoxaparin Sodium (Lovenox -) 40 mg SQ DAILY [facility] Last Admin: 06/29/20 10:50 Dose: 40 mg Documented by: Piperacillin Sod/Tazobactam (Sod 4.5 gm/ Dextrose) 100 mls @ 200 mls/hr IVPB Q8H-IV [facility]; Protocol Last Admin: 06/29/20 10:51 Dose: 200 mls/hr Documented by: Vancomycin HCl 1,500 mg/ (Dextrose) 500 mls @ 250 mls/hr IVPB Q12H [facility]; Protocol Last Admin: 06/29/20 10:51 Dose: 250 mls/hr Documented by: Insulin Aspart (Novolog Vial Sliding Scale -) 1 vial SQ ACHS [facility]; Protocol Last Admin: 06/29/20 06:50 Dose: 4 units Documented by: Insulin Detemir (Levemir Vial) 25 units SQ AM [facility] Last Admin: 06/29/20 06:50 Dose: 25 units Documented by: Metformin HCl (Glucophage -) 500 mg PO BID@0700,1630 [facility] Last Admin: 06/29/20 06:44 Dose: 500 mg Documented by: Sitagliptin Phosphate (Januvia -) 100 mg PO DAILY@0700 [facility] Last Admin: 06/29/20 06:44 Dose: 100 mg Documented by: ASSESSMENT AND PLAN: 45 year old male with no significant PMH, presents with R groin pain/swelling/tenderness, found to have acute cellulitis and newly diagnosed DM2. # Sepsis due to R Groin/proximal medial thigh Cellulutitis/abscess resolving recurrent abscess, keep area dry s/p I&D x2 Afebrile Blood Cx negative to date wound culture pending Leukocytosis, resolving Abx per ID Surgery consult appreciated ID consult appreciated case discussed with ID DC planning for outpatient f/u with ID and surgery new onset DM 2 HTN R renal calculus for outpatient follow up with urology Chronic Thrombocytopenia DVT Px - Lovenox SQ
[2020-06-29 13:48] VITALS: BP 144/85; PULSE 72; TEMP 98.2
== END 2020-06-29 15:11 | disposition home health service (06) | DRG 854 ==
LOC: JER 21:45 → JERBED 06-23 04:42 → J7W 06-23 09:36
PROVIDERS: ATTEND Student in an Organized Health Care Education/Training Program
PROC: 0YJ Anatomical Regions, Lower Extremities, Inspection (ICD-10-PCS; principal; 2020-06-25)
PROC: 0Y950ZZ Drainage of Right Inguinal Region, Open Approach (ICD-10-PCS; 2020-06-26)
DX: A41.89 Other specified sepsis (principal); E87.1 Hypo-osmolality and hyponatremia; L03.314 Cellulitis of groin; L02.214 Cutaneous abscess of groin; N49.2 Inflammatory disorders of scrotum; E66.9 Obesity, unspecified; Z68.31 Body mass index [BMI] 31.0-31.9, adult; I10 Essential (primary) hypertension; E11.65 Type 2 diabetes mellitus with hyperglycemia; N20.0 Calculus of kidney; D69.6 Thrombocytopenia, unspecified; D72.829 Elevated white blood cell count, unspecified
CPT/HCPCS: 36415; 71046-TC-FY; 72193-TC; 76882-TC-RT-FY; 80048; 80053; 80061; 81003; 82962; 83036; 83721; 83735; 84100; 85025; 85610; 85651; 86140; 87040; 87070; 87076; 87205; 93005; 93010; 94760; 99285-25; G0480; Q9967; U0003

== ENCOUNTER 2023-08-07 03:17 | Inpatient (IN) | payer OTHER ==
[2023-08-07 03:25] VITALS: BMI 29.9
[2023-08-07] MEDS ORDERED: ACETAMINOPHEN 1000 MG/100 ML BAG IVPB ONE (03:53)
[2023-08-07] MEDS ORDERED: ACETAMINOPHEN INJECTION 100 ML IVPB ONE ×2 (04:03→12:52)
[2023-08-07] MEDS ORDERED: morphine CARPU-JECT 4 MG/1 ML DISP.SYRIN IVPUSH ONE (04:49)
[2023-08-07] MEDS ORDERED: VANCOMYCIN 1,000 MG in DEXTROSE 5%-WATER - 250 ML IVPB ONE (04:50)
[2023-08-07] MEDS ORDERED: CEFEPIME HCL/D5W 1 GM/50 ML BAG IVPB ONE (04:50)
[2023-08-07 04:57] LABS: HEMATOCRIT 43.5 % (35.4-49); HEMOGLOBIN 15.1 GM/dL (11.7-16.9); MCH 29.8 pg (25.7-33.7); MCHC 34.8 g/dl (32.0-35.9); MEAN CELL VOLUME 85.8 fl (80-96); MEAN PLT VOLUME 11.4 fl (7.5-11.1); PLATELET COUNT 128 10^3/uL (134-434); RBC 5.07 M/mm3 (4.00-5.60); RDW 13.5 % (11.9-15.9); WHITE BLOOD COUNT 21.3 K/mm3 (4.0-10.0)
[2023-08-07] MEDS ORDERED: morphine SULFATE 4 MG/ML VIAL ONE (05:00)
[2023-08-07] MEDS ORDERED: VANCOMYCIN 1 GRAM (PRE-DOCKED) 1,000 MG/250 ML BAG IVPB ONE (05:01)
[2023-08-07] MEDS ORDERED: CEFEPIME 1 GM/100 ML BAG IVPB ONE (05:01)
[2023-08-07 05:17] LABS: BLOOD UREA NITROGEN 11.7 mg/dL (7-18); CALCIUM 8.3 mg/dL (8.5-10.1); MAGNESIUM 1.7 mg/dL (1.8-2.4)
[2023-08-07 05:18] LABS: ALBUMIN 3.3 g/dl (3.4-5.0)
[2023-08-07 05:21] LABS: CREATININE 0.8 mg/dL (0.55-1.3)
[2023-08-07 05:22] LABS: TOT PROT 6.9 g/dl (6.4-8.2)
[2023-08-07 06:01] LABS: INR 1.38 (0.83-1.09); PROTHROMBIN TIME (PATIENT) 15.9 SEC (9.7-13.0)
[2023-08-07 06:03] LABS: ACTIVATED PTT 31.5 SECONDS (25.2-36.5)
[2023-08-07] MEDS ORDERED: MAGNESIUM SULF 50% (8.12 MEQ/2 ML-1 GM VIAL) IVPB ONE ×2 (06:29→08:30)
[2023-08-07 08:13] LABS: PH,URINE 5.5 (5.0-8.0); URINE APPEARANCE CLEAR; URINE BILIRUBIN NEGATIVE (NEGATIVE); URINE COLOR YELLOW; URINE GLUCOSE (UA) 3+ (NEGATIVE); URINE KETONE 2+ (NEGATIVE); URINE LEUK ESTERASE NEGATIVE (NEGATIVE); URINE NITRITE NEGATIVE (NEGATIVE); URINE PROTEIN NEGATIVE (NEGATIVE); URINE UROBILINOGEN 0.2 mg/dL (0.2-1.0)
[2023-08-07] MEDS ORDERED: MAGNESIUM SULFATE IN WATER 2 GM/50 ML IVPB IVPB ONE (09:28)
[2023-08-07] MEDS ORDERED: PIPERACILLIN/TAZOB 4.5 GM 4.5 GM in DEXTROSE 5%-WATER 100 ML IVPB ONE (10:30)
[2023-08-07] MEDS ORDERED: PIPERACILLIN/TAZOB 4.5 GM 4.5 GM/100 ML BAG IVPB ONE (10:55)
[2023-08-07] MEDS ORDERED: ACETAMINOPHEN 1000 MG/100 ML BAG IVPB PRN (11:08)
[2023-08-07] MEDS ORDERED: LACTATED RINGERS SOLUTION 1,000 ML/1,000 ML INFUS.BAG IV SCH ×2 (11:15→14:04)
[2023-08-07] MEDS ORDERED: INSULIN SLIDING SCALE (NOVOLOG) 1 VIAL SQ SCH (12:00)
[2023-08-07] MEDS ORDERED: INSULIN (LEVEMIR) 100 UNITS/ML UNITS SQ SCH (12:00)
[2023-08-07] MEDS ORDERED: LIDOCAINE HCL 2% 100 MG/5 ML DISP.SYRIN ONE (12:37)
[2023-08-07] MEDS ORDERED: SUCCINYLCHOLINE CHLORIDE 200 MG/10 ML SYRINGE ONE (12:37)
[2023-08-07] MEDS ORDERED: PROPOFOL 20 ML ONE (12:37)
[2023-08-07] MEDS ORDERED: FENTANYL CITRATE/PF 50 MCG/ML VIAL ONE ×2 (12:37→13:12)
[2023-08-07] MEDS ORDERED: MIDAZOLAM HCL 2 MG/2 ML SINGLE DOSE VIAL ONE (12:37)
[2023-08-07] MEDS ORDERED: ONDANSETRON 4 MG/2 ML VIAL IVPUSH PRN ×2 (12:48→14:04)
[2023-08-07] MEDS ORDERED: HYDROmorphone HCl 2 MG/ML VIAL IVPUSH PRN ×3 (12:49→14:04)
[2023-08-07] MEDS ORDERED: LACTATED RINGERS SOLUTION 1,000 ML IV SCH ×2 (13:00→14:04)
[2023-08-07] MEDS ORDERED: HYDROmorphone HCl 2 MG/ML VIAL ONE (13:41)
[2023-08-07] MEDS: HYDROmorphone HCl 2 MG/ML VIAL IVPUSH PRN ×2 (13:41→13:56)
[2023-08-07] MEDS ORDERED: ENOXAPARIN NA (PORCINE) 40 MG/0.4 ML DISP.SYRIN SQ ONE ×2 (14:14→14:15)
[2023-08-07] MEDS: INSULIN SLIDING SCALE (NOVOLOG) 1 VIAL SQ SCH ×3 (15:09→21:40)
[2023-08-07] MEDS: KETOROLAC TROMETHAMINE 15 MG/ML VIAL IVPUSH SCH ×2 (15:50→21:43)
[2023-08-07] MEDS: ENOXAPARIN NA (PORCINE) 40 MG/0.4 ML DISP.SYRIN SQ SCH (15:51)
[2023-08-07] MEDS: PIPERACILLIN/TAZOB 4.5 GM 4.5 GM in DEXTROSE 5%-WATER 100 ML IVPB SCH (17:26)
[2023-08-07] MEDS ORDERED: PIPERACILLIN/TAZOB 4.5 GM 4.5 GM in DEXTROSE 5%-WATER 100 ML IVPB SCH ×2 (18:00)
[2023-08-07] MEDS ORDERED: VANCOMYCIN/WATER FOR INJ (PEG) 1,000 MG/200 ML BAG IVPB SCH ×3 (18:00)
[2023-08-07] MEDS: ACETAMINOPHEN 1000 MG/100 ML BAG IVPB PRN (18:02)
[2023-08-07] MEDS: VANCOMYCIN/WATER FOR INJ (PEG) 1,000 MG/200 ML BAG IVPB SCH (18:21)
[2023-08-08] MEDS: KETOROLAC TROMETHAMINE 15 MG/ML VIAL IVPUSH SCH ×4 (02:22→22:31)
[2023-08-08] MEDS: PIPERACILLIN/TAZOB 4.5 GM 4.5 GM in DEXTROSE 5%-WATER 100 ML IVPB SCH ×2 (03:18→10:16)
[2023-08-08] MEDS: VANCOMYCIN/WATER FOR INJ (PEG) 1,000 MG/200 ML BAG IVPB SCH ×2 (05:51→18:25)
[2023-08-08] MEDS: INSULIN SLIDING SCALE (NOVOLOG) 1 VIAL SQ SCH ×4 (05:59→22:33)
[2023-08-08] MEDS: INSULIN (LEVEMIR) 100 UNITS/ML UNITS SQ SCH (06:00)
[2023-08-08 09:42] LABS: HEMATOCRIT 41.6 % (35.4-49); HEMOGLOBIN 13.7 GM/dL (11.7-16.9); MCHC 33.1 g/dl (32.0-35.9); MEAN CELL VOLUME 87.8 fl (80-96); MEAN PLT VOLUME 11.1 fl (7.5-11.1); PLATELET COUNT 128 10^3/uL (134-434); RBC 4.74 M/mm3 (4.00-5.60); RDW 13.4 % (11.9-15.9); WHITE BLOOD COUNT 20.5 K/mm3 (4.0-10.0)
[2023-08-08 09:54] LABS: POTASSIUM 3.4 mmol/L (3.5-5.1)
[2023-08-08 09:59] LABS: CALCIUM 8.2 mg/dL (8.5-10.1)
[2023-08-08 10:03] LABS: CREATININE 0.9 mg/dL (0.55-1.3)
[2023-08-08] MEDS: ACETAMINOPHEN 1000 MG/100 ML BAG IVPB PRN (10:20)
[2023-08-08] MEDS: ENOXAPARIN NA (PORCINE) 40 MG/0.4 ML DISP.SYRIN SQ SCH (10:20)
[2023-08-08 11:28] LABS: ANISOCYTOSIS 1+; MACROCYTOSIS 0
[2023-08-08] MEDS: PIPERACILLIN/TAZOB 3.375 GM 3.375 GM in DEXTROSE 5%-WATER - 50 ML IVPB SCH (17:12)
[2023-08-09] MEDS: PIPERACILLIN/TAZOB 3.375 GM 3.375 GM in DEXTROSE 5%-WATER - 50 ML IVPB SCH ×3 (01:55→17:36)
[2023-08-09] MEDS: KETOROLAC TROMETHAMINE 15 MG/ML VIAL IVPUSH SCH ×4 (02:59→19:27)
[2023-08-09] MEDS: VANCOMYCIN/WATER FOR INJ (PEG) 1,000 MG/200 ML BAG IVPB SCH ×2 (05:38→19:01)
[2023-08-09] MEDS: INSULIN (LEVEMIR) 100 UNITS/ML UNITS SQ SCH (06:40)
[2023-08-09] MEDS: INSULIN SLIDING SCALE (NOVOLOG) 1 VIAL SQ SCH ×4 (06:41→22:04)
[2023-08-09 09:38] LABS: HEMATOCRIT 39.1 % (35.4-49); HEMOGLOBIN 13.3 GM/dL (11.7-16.9); MCH 29.3 pg (25.7-33.7); MCHC 34.1 g/dl (32.0-35.9); MEAN CELL VOLUME 86.1 fl (80-96); MEAN PLT VOLUME 11.5 fl (7.5-11.1); PLATELET COUNT 136 10^3/uL (134-434); RBC 4.54 M/mm3 (4.00-5.60); RDW 13.5 % (11.9-15.9); WHITE BLOOD COUNT 17.1 K/mm3 (4.0-10.0)
[2023-08-09] MEDS: ENOXAPARIN NA (PORCINE) 40 MG/0.4 ML DISP.SYRIN SQ SCH (10:39)
[2023-08-09] MEDS ORDERED: INSULIN (LEVEMIR) 100 UNITS/ML UNITS SQ SCH (22:00)
[2023-08-10] MEDS: KETOROLAC TROMETHAMINE 15 MG/ML VIAL IVPUSH SCH ×4 (01:17→22:08)
[2023-08-10] MEDS: PIPERACILLIN/TAZOB 3.375 GM 3.375 GM in DEXTROSE 5%-WATER - 50 ML IVPB SCH ×3 (01:17→17:34)
[2023-08-10] MEDS: VANCOMYCIN/WATER FOR INJ (PEG) 1,000 MG/200 ML BAG IVPB SCH ×2 (06:00→18:25)
[2023-08-10] MEDS: INSULIN SLIDING SCALE (NOVOLOG) 1 VIAL SQ SCH ×4 (06:07→23:21)
[2023-08-10] MEDS ORDERED: ACETAMINOPHEN 500 MG TABLET (FP) PO PRN (08:00)
[2023-08-10] MEDS ORDERED: oxyCODONE HCL 5 MG TABLET PO PRN (08:00)
[2023-08-10] MEDS: traMADol HCL 50 MG TABLET PO PRN ×2 (08:47→15:33)
[2023-08-10 10:12] LABS: HEMATOCRIT 38.8 % (35.4-49); HEMOGLOBIN 12.7 GM/dL (11.7-16.9); MCH 28.6 pg (25.7-33.7); MCHC 32.6 g/dl (32.0-35.9); MEAN CELL VOLUME 87.8 fl (80-96); MEAN PLT VOLUME 11.8 fl (7.5-11.1); PLATELET COUNT 153 10^3/uL (134-434); RBC 4.43 M/mm3 (4.00-5.60); RDW 13.2 % (11.9-15.9); WHITE BLOOD COUNT 16.9 K/mm3 (4.0-10.0)
[2023-08-10] MEDS: ENOXAPARIN NA (PORCINE) 40 MG/0.4 ML DISP.SYRIN SQ SCH (10:55)
[2023-08-10] MEDS: LACTOBACILLUS ACIDOPHILUS 1 TABLET PO SCH (10:55)
[2023-08-10] MEDS: LISINOPRIL 5 MG TABLET PO SCH (10:55)
[2023-08-10 11:13] LABS: ANISOCYTOSIS 0; MACROCYTOSIS 0
[2023-08-10 12:00] LABS: ALBUMIN 2.3 g/dl (3.4-5.0); BILIRUBIN,TOTAL 0.5 mg/dL (0.2-1); BLOOD UREA NITROGEN 18.4 mg/dL (7-18); CALCIUM 7.9 mg/dL (8.5-10.1); CREATININE 0.6 mg/dL (0.55-1.3); MAGNESIUM 2.1 mg/dL (1.8-2.4); PHOSPHOROUS 3.1 mg/dL (2.5-4.9); POTASSIUM 3.4 mmol/L (3.5-5.1); TOT PROT 5.6 g/dl (6.4-8.2)
[2023-08-10] MEDS ORDERED: INSULIN (LEVEMIR) 100 UNITS/ML UNITS SQ ONE (12:30)
[2023-08-10] MEDS: INSULIN (NOVOLOG) ASPART 100 UNITS/ML 10ML VIAL SQ SCH (17:34)
[2023-08-10] MEDS: INSULIN (LEVEMIR) 100 UNITS/ML UNITS SQ SCH (22:59)
[2023-08-11] MEDS ORDERED: PIPERACILLIN/TAZOBACTAM 3.375 GM VIAL IVPB ONE (01:02)
[2023-08-11] MEDS: PIPERACILLIN/TAZOB 3.375 GM 3.375 GM in DEXTROSE 5%-WATER - 50 ML IVPB SCH ×3 (01:18→17:50)
[2023-08-11] MEDS: KETOROLAC TROMETHAMINE 15 MG/ML VIAL IVPUSH SCH ×2 (01:30→08:10)
[2023-08-11] MEDS: VANCOMYCIN/WATER FOR INJ (PEG) 1,000 MG/200 ML BAG IVPB SCH (05:22)
[2023-08-11] MEDS: INSULIN SLIDING SCALE (NOVOLOG) 1 VIAL SQ SCH ×4 (06:14→21:10)
[2023-08-11] MEDS: INSULIN (LEVEMIR) 100 UNITS/ML UNITS SQ SCH ×2 (06:16→21:10)
[2023-08-11] MEDS: INSULIN (NOVOLOG) ASPART 100 UNITS/ML 10ML VIAL SQ SCH ×3 (06:51→17:53)
[2023-08-11] MEDS ORDERED: INSULIN (LEVEMIR) 100 UNITS/ML UNITS SQ SCH (07:00)
[2023-08-11] MEDS: traMADol HCL 50 MG TABLET PO PRN (08:12)
[2023-08-11] MEDS: ENOXAPARIN NA (PORCINE) 40 MG/0.4 ML DISP.SYRIN SQ SCH (09:27)
[2023-08-11] MEDS: LISINOPRIL 5 MG TABLET PO SCH (09:27)
[2023-08-11] MEDS: LACTOBACILLUS ACIDOPHILUS 1 TABLET PO SCH (09:27)
[2023-08-11] MEDS ORDERED: DAPTOMYCIN 800 MG in SODIUM CHLORIDE 100 ML IVPB SCH (10:00)
[2023-08-11 11:11] LABS: HEMATOCRIT 39.7 % (35.4-49); MCH 28.7 pg (25.7-33.7); MCHC 32.7 g/dl (32.0-35.9); MEAN CELL VOLUME 87.7 fl (80-96); MEAN PLT VOLUME 11.7 fl (7.5-11.1); PLATELET COUNT 170 10^3/uL (134-434); RBC 4.52 M/mm3 (4.00-5.60); RDW 13.4 % (11.9-15.9); WHITE BLOOD COUNT 25.6 K/mm3 (4.0-10.0)
[2023-08-11 11:32] LABS: ALBUMIN 2.2 g/dl (3.4-5.0); BLOOD UREA NITROGEN 12.8 mg/dL (7-18)
[2023-08-11 11:35] LABS: CREATININE 0.6 mg/dL (0.55-1.3)
[2023-08-11 11:36] LABS: BILIRUBIN,TOTAL 0.6 mg/dL (0.2-1); TOT PROT 5.7 g/dl (6.4-8.2)
[2023-08-11 12:28] LABS: ANISOCYTOSIS 0; MACROCYTOSIS 0
[2023-08-11] MEDS ORDERED: ONDANSETRON 4 MG/2 ML VIAL IVPUSH PRN ×4 (13:48→16:26)
[2023-08-11] MEDS ORDERED: LACTATED RINGERS SOLUTION 1,000 ML IV SCH (15:15)
[2023-08-11] MEDS ORDERED: ACETAMINOPHEN INJECTION 100 ML IVPB ONE (16:15)
[2023-08-11] MEDS ORDERED: ACETAMINOPHEN 1000 MG/100 ML BAG IVPB ONE ×2 (16:20→16:26)
[2023-08-11] MEDS ORDERED: ACETAMINOPHEN 500 MG TABLET (FP) PO PRN (16:26)
[2023-08-11] MEDS ORDERED: traMADol HCL 50 MG TABLET PO PRN (16:26)
[2023-08-11] MEDS: LACTATED RINGERS SOLUTION 1,000 ML IV SCH (16:30)
[2023-08-11] MEDS ORDERED: FENTANYL CITRATE/PF 50 MCG/ML VIAL ONE (16:37)
[2023-08-11] MEDS: KCL 10 MEQ IVPB 10 MEQ/100 ML INFUS.BAG IVPB SCH ×3 (18:30→22:27)
[2023-08-11] MEDS: ACETAMINOPHEN 1000 MG/100 ML BAG IVPB SCH (22:27)
[2023-08-12] MEDS: PIPERACILLIN/TAZOB 3.375 GM 3.375 GM in DEXTROSE 5%-WATER - 50 ML IVPB SCH ×3 (01:34→18:26)
[2023-08-12] MEDS: oxyCODONE HCL 5 MG TABLET PO PRN ×3 (02:29→22:54)
[2023-08-12] MEDS: ACETAMINOPHEN 1000 MG/100 ML BAG IVPB SCH ×4 (04:26→22:53)
[2023-08-12] MEDS: INSULIN (NOVOLOG) ASPART 100 UNITS/ML 10ML VIAL SQ SCH ×3 (06:30→17:32)
[2023-08-12] MEDS: INSULIN (LEVEMIR) 100 UNITS/ML UNITS SQ SCH ×2 (06:30→22:46)
[2023-08-12] MEDS: INSULIN SLIDING SCALE (NOVOLOG) 1 VIAL SQ SCH ×4 (06:31→22:45)
[2023-08-12] MEDS: LACTATED RINGERS SOLUTION 1,000 ML IV SCH ×3 (07:09→17:33)
[2023-08-12 10:03] LABS: BASO % 0.5 % (0-2.0); EOS % 0.5 % (0-4.5); HEMOGLOBIN 11.7 GM/dL (11.7-16.9); LYMPH % 12.2 % (8-40); MCH 29.7 pg (25.7-33.7); MCHC 34.5 g/dl (32.0-35.9); MEAN CELL VOLUME 86.2 fl (80-96); MONO % 9.8 % (3.8-10.2); PLATELET COUNT 187 10^3/uL (134-434); RBC 3.95 M/mm3 (4.00-5.60); RDW 13.8 % (11.9-15.9); WHITE BLOOD COUNT 15.8 K/mm3 (4.0-10.0)
[2023-08-12 10:21] LABS: POTASSIUM 3.5 mmol/L (3.5-5.1)
[2023-08-12 10:26] LABS: ALBUMIN 1.9 g/dl (3.4-5.0)
[2023-08-12 10:27] LABS: BLOOD UREA NITROGEN 10.5 mg/dL (7-18)
[2023-08-12 10:28] LABS: MAGNESIUM 2.2 mg/dL (1.8-2.4)
[2023-08-12 10:29] LABS: CREATININE 0.5 mg/dL (0.55-1.3); PHOSPHOROUS 2.1 mg/dL (2.5-4.9)
[2023-08-12 10:31] LABS: BILIRUBIN,TOTAL 0.5 mg/dL (0.2-1)
[2023-08-12] MEDS: LISINOPRIL 5 MG TABLET PO SCH (10:49)
[2023-08-12] MEDS: LACTOBACILLUS ACIDOPHILUS 1 TABLET PO SCH (10:49)
[2023-08-12] MEDS: ENOXAPARIN NA (PORCINE) 40 MG/0.4 ML DISP.SYRIN SQ SCH (10:49)
[2023-08-12] MEDS: SODIUM HYPOCHLORITE 0.5% 473 ML- BULK BOTTLE TP SCH ×3 (11:22→22:47)
[2023-08-12] MEDS: DAPTOMYCIN 800 MG in SODIUM CHLORIDE 100 ML IVPB SCH (11:39)
[2023-08-12] MEDS ORDERED: morphine SULFATE 4 MG/ML VIAL IVPUSH PRN (11:57)
[2023-08-12] MEDS ORDERED: NAPH,MB-DB/K PH,MBDB POWDER PACKET PO ONE (18:42)
[2023-08-13] MEDS: PIPERACILLIN/TAZOB 3.375 GM 3.375 GM in DEXTROSE 5%-WATER - 50 ML IVPB SCH ×3 (01:44→17:12)
[2023-08-13] MEDS: ACETAMINOPHEN 1000 MG/100 ML BAG IVPB SCH ×4 (05:47→22:12)
[2023-08-13] MEDS: INSULIN (NOVOLOG) ASPART 100 UNITS/ML 10ML VIAL SQ SCH ×3 (07:40→16:48)
[2023-08-13] MEDS: INSULIN (LEVEMIR) 100 UNITS/ML UNITS SQ SCH ×2 (07:40→21:19)
[2023-08-13] MEDS: INSULIN SLIDING SCALE (NOVOLOG) 1 VIAL SQ SCH ×4 (07:41→21:18)
[2023-08-13 09:14] LABS: POTASSIUM 3.5 mmol/L (3.5-5.1)
[2023-08-13 09:16] LABS: BLOOD UREA NITROGEN 8.7 mg/dL (7-18)
[2023-08-13 09:18] LABS: CREATININE 0.5 mg/dL (0.55-1.3)
[2023-08-13 09:19] LABS: PHOSPHOROUS 2.7 mg/dL (2.5-4.9)
[2023-08-13 09:20] LABS: BILIRUBIN,TOTAL 0.4 mg/dL (0.2-1); TOT PROT 5.5 g/dl (6.4-8.2)
[2023-08-13] MEDS: LACTOBACILLUS ACIDOPHILUS 1 TABLET PO SCH (09:30)
[2023-08-13] MEDS: LISINOPRIL 5 MG TABLET PO SCH (09:30)
[2023-08-13] MEDS: ENOXAPARIN NA (PORCINE) 40 MG/0.4 ML DISP.SYRIN SQ SCH (09:30)
[2023-08-13] MEDS: SODIUM HYPOCHLORITE 0.5% 473 ML- BULK BOTTLE TP SCH ×2 (09:31→22:07)
[2023-08-13] MEDS: oxyCODONE HCL 5 MG TABLET PO PRN ×2 (09:35→13:19)
[2023-08-13] MEDS: DAPTOMYCIN 800 MG in SODIUM CHLORIDE 100 ML IVPB SCH (10:30)
[2023-08-13 13:10] LABS: BASO % 0.5 % (0-2.0); HEMATOCRIT 34.4 % (35.4-49); HEMOGLOBIN 11.3 GM/dL (11.7-16.9); MCH 28.8 pg (25.7-33.7); MCHC 32.9 g/dl (32.0-35.9); MEAN CELL VOLUME 87.5 fl (80-96); MEAN PLT VOLUME 10.5 fl (7.5-11.1); MONO % 8.7 % (3.8-10.2); NEUT % 73.8 % (42.8-82.8); PLATELET COUNT 267 10^3/uL (134-434); RBC 3.94 M/mm3 (4.00-5.60); RDW 13.2 % (11.9-15.9); WHITE BLOOD COUNT 12.9 K/mm3 (4.0-10.0)
[2023-08-13] MEDS: LACTATED RINGERS SOLUTION 1,000 ML IV SCH (16:48)
[2023-08-14] MEDS: PIPERACILLIN/TAZOB 3.375 GM 3.375 GM in DEXTROSE 5%-WATER - 50 ML IVPB SCH ×3 (02:23→17:07)
[2023-08-14] MEDS: ACETAMINOPHEN 1000 MG/100 ML BAG IVPB SCH ×2 (04:27→11:39)
[2023-08-14] MEDS: INSULIN SLIDING SCALE (NOVOLOG) 1 VIAL SQ SCH ×4 (06:30→21:30)
[2023-08-14] MEDS: INSULIN (NOVOLOG) ASPART 100 UNITS/ML 10ML VIAL SQ SCH ×3 (06:30→16:36)
[2023-08-14] MEDS: INSULIN (LEVEMIR) 100 UNITS/ML UNITS SQ SCH ×2 (06:31→21:29)
[2023-08-14 09:03] LABS: BASO % 0.8 % (0-2.0); EOS % 0.9 % (0-4.5); HEMATOCRIT 36.3 % (35.4-49); HEMOGLOBIN 11.8 GM/dL (11.7-16.9); LYMPH % 16.7 % (8-40); MCH 28.8 pg (25.7-33.7); MCHC 32.6 g/dl (32.0-35.9); MEAN CELL VOLUME 88.1 fl (80-96); MEAN PLT VOLUME 10.6 fl (7.5-11.1); MONO % 8.8 % (3.8-10.2); NEUT % 72.8 % (42.8-82.8); PLATELET COUNT 319 10^3/uL (134-434); RBC 4.12 M/mm3 (4.00-5.60); WHITE BLOOD COUNT 12.5 K/mm3 (4.0-10.0)
[2023-08-14] MEDS: LACTOBACILLUS ACIDOPHILUS 1 TABLET PO SCH (09:14)
[2023-08-14] MEDS: LISINOPRIL 5 MG TABLET PO SCH (09:14)
[2023-08-14] MEDS: ENOXAPARIN NA (PORCINE) 40 MG/0.4 ML DISP.SYRIN SQ SCH (09:14)
[2023-08-14] MEDS: SODIUM HYPOCHLORITE 0.5% 473 ML- BULK BOTTLE TP SCH ×2 (09:14→21:29)
[2023-08-14 09:26] LABS: POTASSIUM 3.9 mmol/L (3.5-5.1)
[2023-08-14 09:28] LABS: BLOOD UREA NITROGEN 7.8 mg/dL (7-18); CALCIUM 8.1 mg/dL (8.5-10.1)
[2023-08-14 09:32] LABS: CREATININE 0.5 mg/dL (0.55-1.3); PHOSPHOROUS 2.9 mg/dL (2.5-4.9)
[2023-08-14] MEDS ORDERED: ACETAMINOPHEN 500 MG TABLET (FP) PO PRN (11:17)
[2023-08-14] MEDS: DAPTOMYCIN 800 MG in SODIUM CHLORIDE 100 ML IVPB SCH (11:17)
[2023-08-14] MEDS: oxyCODONE HCL 5 MG TABLET PO PRN (13:48)
[2023-08-14 15:26] LABS: BASO % 0.5 % (0-2.0); EOS % 0.7 % (0-4.5); HEMATOCRIT 36.8 % (35.4-49); HEMOGLOBIN 12.3 GM/dL (11.7-16.9); LYMPH % 15.7 % (8-40); MCH 28.9 pg (25.7-33.7); MCHC 33.3 g/dl (32.0-35.9); MEAN CELL VOLUME 86.8 fl (80-96); MEAN PLT VOLUME 10.3 fl (7.5-11.1); NEUT % 75.1 % (42.8-82.8); PLATELET COUNT 355 10^3/uL (134-434); RBC 4.25 M/mm3 (4.00-5.60); RDW 13.3 % (11.9-15.9); WHITE BLOOD COUNT 15.7 K/mm3 (4.0-10.0)
[2023-08-15] MEDS: PIPERACILLIN/TAZOB 3.375 GM 3.375 GM in DEXTROSE 5%-WATER - 50 ML IVPB SCH ×3 (02:30→18:23)
[2023-08-15] MEDS: INSULIN (LEVEMIR) 100 UNITS/ML UNITS SQ SCH ×2 (06:08→21:28)
[2023-08-15] MEDS: INSULIN (NOVOLOG) ASPART 100 UNITS/ML 10ML VIAL SQ SCH ×3 (06:09→17:05)
[2023-08-15] MEDS: INSULIN SLIDING SCALE (NOVOLOG) 1 VIAL SQ SCH ×4 (06:09→21:26)
[2023-08-15] MEDS: oxyCODONE HCL 5 MG TABLET PO PRN ×2 (07:11→11:45)
[2023-08-15 09:38] LABS: BASO % 0.4 % (0-2.0); EOS % 0.8 % (0-4.5); HEMATOCRIT 35.7 % (35.4-49); LYMPH % 15.7 % (8-40); MCH 29.6 pg (25.7-33.7); MCHC 33.7 g/dl (32.0-35.9); MEAN CELL VOLUME 87.9 fl (80-96); MEAN PLT VOLUME 10.2 fl (7.5-11.1); MONO % 6.5 % (3.8-10.2); NEUT % 76.6 % (42.8-82.8); PLATELET COUNT 340 10^3/uL (134-434); RBC 4.07 M/mm3 (4.00-5.60); RDW 13.4 % (11.9-15.9); WHITE BLOOD COUNT 14.4 K/mm3 (4.0-10.0)
[2023-08-15 09:46] LABS: POTASSIUM 3.9 mmol/L (3.5-5.1)
[2023-08-15 10:03] LABS: ALBUMIN 2.2 g/dl (3.4-5.0); BLOOD UREA NITROGEN 8.7 mg/dL (7-18); CALCIUM 8.2 mg/dL (8.5-10.1)
[2023-08-15 10:06] LABS: CREATININE 0.5 mg/dL (0.55-1.3)
[2023-08-15 10:07] LABS: BILIRUBIN,TOTAL 0.4 mg/dL (0.2-1)
[2023-08-15 10:09] LABS: TOT PROT 6.3 g/dl (6.4-8.2)
[2023-08-15] MEDS: ENOXAPARIN NA (PORCINE) 40 MG/0.4 ML DISP.SYRIN SQ SCH (10:20)
[2023-08-15] MEDS: LACTOBACILLUS ACIDOPHILUS 1 TABLET PO SCH (10:20)
[2023-08-15] MEDS: LISINOPRIL 10 MG TABLET PO SCH (10:20)
[2023-08-15] MEDS: DAPTOMYCIN 800 MG in SODIUM CHLORIDE 100 ML IVPB SCH (10:20)
[2023-08-15] MEDS: SODIUM HYPOCHLORITE 0.5% 473 ML- BULK BOTTLE TP SCH ×2 (12:20→21:27)
[2023-08-15 15:16] LABS: BASO % 0.5 % (0-2.0); EOS % 0.9 % (0-4.5); HEMATOCRIT 35.5 % (35.4-49); LYMPH % 21.1 % (8-40); MCH 29.3 pg (25.7-33.7); MCHC 33.8 g/dl (32.0-35.9); MEAN CELL VOLUME 86.6 fl (80-96); MONO % 7.7 % (3.8-10.2); NEUT % 69.8 % (42.8-82.8); PLATELET COUNT 355 10^3/uL (134-434); RDW 13.4 % (11.9-15.9); WHITE BLOOD COUNT 13.6 K/mm3 (4.0-10.0)
[2023-08-16] MEDS: PIPERACILLIN/TAZOB 3.375 GM 3.375 GM in DEXTROSE 5%-WATER - 50 ML IVPB SCH ×3 (01:21→17:41)
[2023-08-16] MEDS: INSULIN (NOVOLOG) ASPART 100 UNITS/ML 10ML VIAL SQ SCH ×3 (06:01→17:42)
[2023-08-16] MEDS: INSULIN (LEVEMIR) 100 UNITS/ML UNITS SQ SCH (06:01)
[2023-08-16] MEDS: INSULIN SLIDING SCALE (NOVOLOG) 1 VIAL SQ SCH ×4 (06:02→21:49)
[2023-08-16] MEDS: ENOXAPARIN NA (PORCINE) 40 MG/0.4 ML DISP.SYRIN SQ SCH (09:37)
[2023-08-16] MEDS: LACTOBACILLUS ACIDOPHILUS 1 TABLET PO SCH (09:38)
[2023-08-16] MEDS: LISINOPRIL 10 MG TABLET PO SCH (09:38)
[2023-08-16] MEDS ORDERED: INSULIN (LEVEMIR) 100 UNITS/ML UNITS SQ SCH ×2 (10:06)
[2023-08-16 10:35] LABS: BASO % 0.7 % (0-2.0); EOS % 0.8 % (0-4.5); HEMATOCRIT 36.9 % (35.4-49); HEMOGLOBIN 12.4 GM/dL (11.7-16.9); LYMPH % 15.7 % (8-40); MCH 29.6 pg (25.7-33.7); MCHC 33.5 g/dl (32.0-35.9); MEAN CELL VOLUME 88.4 fl (80-96); MEAN PLT VOLUME 10.2 fl (7.5-11.1); MONO % 5.5 % (3.8-10.2); NEUT % 77.3 % (42.8-82.8); PLATELET COUNT 381 10^3/uL (134-434); RBC 4.17 M/mm3 (4.00-5.60); RDW 13.3 % (11.9-15.9); WHITE BLOOD COUNT 15.4 K/mm3 (4.0-10.0)
[2023-08-16 10:51] LABS: POTASSIUM 4.3 mmol/L (3.5-5.1)
[2023-08-16 10:58] LABS: BLOOD UREA NITROGEN 11.8 mg/dL (7-18); CALCIUM 8.5 mg/dL (8.5-10.1); CREATININE 0.6 mg/dL (0.55-1.3)
[2023-08-16 11:00] LABS: ALBUMIN 2.4 g/dl (3.4-5.0)
[2023-08-16 11:03] LABS: BILIRUBIN,TOTAL 0.4 mg/dL (0.2-1); TOT PROT 6.7 g/dl (6.4-8.2)
[2023-08-16] MEDS: DAPTOMYCIN 800 MG in SODIUM CHLORIDE 100 ML IVPB SCH (11:51)
[2023-08-16] MEDS: SODIUM HYPOCHLORITE 0.5% 473 ML- BULK BOTTLE TP SCH ×2 (13:10→21:30)
[2023-08-16] MEDS: oxyCODONE HCL 5 MG TABLET PO PRN (16:43)
[2023-08-17] MEDS: PIPERACILLIN/TAZOB 3.375 GM 3.375 GM in DEXTROSE 5%-WATER - 50 ML IVPB SCH ×3 (01:44→17:14)
[2023-08-17] MEDS: INSULIN SLIDING SCALE (NOVOLOG) 1 VIAL SQ SCH ×4 (06:15→23:11)
[2023-08-17] MEDS ORDERED: LIDOCAINE HCL 1%, 10 MG/ML (20ML VIAL) ONE (07:21)
[2023-08-17] MEDS ORDERED: BUPIVACAINE HCL/PF 0.25% (2.5MG/ML) 10 ML VIAL ONE (07:22)
[2023-08-17] MEDS ORDERED: ONDANSETRON 4 MG/2 ML VIAL IVPUSH PRN ×2 (07:54→09:12)
[2023-08-17] MEDS: INSULIN (NOVOLOG) ASPART 100 UNITS/ML 10ML VIAL SQ SCH ×3 (07:56→17:09)
[2023-08-17] MEDS ORDERED: PIPERACILLIN/TAZOBACTAM 3.375 GM VIAL IVPB ONE (07:59)
[2023-08-17] MEDS ORDERED: MIDAZOLAM HCL 2 MG/2 ML SINGLE DOSE VIAL ONE (08:00)
[2023-08-17] MEDS ORDERED: KETAMINE HCL 200 MG/20 ML VIAL ONE (08:00)
[2023-08-17] MEDS ORDERED: LACTATED RINGERS SOLUTION 1,000 ML IV SCH (08:00)
[2023-08-17] MEDS ORDERED: FENTANYL CITRATE/PF 50 MCG/ML VIAL ONE ×5 (08:00→09:42)
[2023-08-17] MEDS ORDERED: PROPOFOL 20 ML ONE (08:00)
[2023-08-17] MEDS ORDERED: ALBUTEROL SO4 0.083% IH SOL 2.5 MG/3 ML VIAL.NEB. NEB ONE ×2 (09:03→09:04)
[2023-08-17] MEDS ORDERED: ACETAMINOPHEN 500 MG TABLET (FP) PO PRN (09:12)
[2023-08-17] MEDS ORDERED: oxyCODONE HCL 5 MG TABLET PO PRN (09:12)
[2023-08-17] MEDS: LACTATED RINGERS SOLUTION 1,000 ML IV SCH ×2 (10:15→23:35)
[2023-08-17] MEDS: LACTOBACILLUS ACIDOPHILUS 1 TABLET PO SCH (11:44)
[2023-08-17] MEDS: LISINOPRIL 10 MG TABLET PO SCH (11:44)
[2023-08-17] MEDS: DAPTOMYCIN 800 MG in SODIUM CHLORIDE 100 ML IVPB SCH (11:48)
[2023-08-17 12:35] LABS: BASO % 0.3 % (0-2.0); EOS % 0.7 % (0-4.5); HEMOGLOBIN 11.8 GM/dL (11.7-16.9); LYMPH % 22.8 % (8-40); MCH 29.4 pg (25.7-33.7); MCHC 33.7 g/dl (32.0-35.9); MEAN CELL VOLUME 87.2 fl (80-96); MEAN PLT VOLUME 10.2 fl (7.5-11.1); MONO % 6.1 % (3.8-10.2); NEUT % 70.1 % (42.8-82.8); PLATELET COUNT 381 10^3/uL (134-434); RBC 4.02 M/mm3 (4.00-5.60); RDW 13.5 % (11.9-15.9); WHITE BLOOD COUNT 12.2 K/mm3 (4.0-10.0)
[2023-08-17 13:01] LABS: POTASSIUM 4.4 mmol/L (3.5-5.1)
[2023-08-17 13:07] LABS: BLOOD UREA NITROGEN 12.8 mg/dL (7-18); CALCIUM 8.3 mg/dL (8.5-10.1)
[2023-08-17 13:08] LABS: ALBUMIN 2.3 g/dl (3.4-5.0)
[2023-08-17 13:11] LABS: CREATININE 0.7 mg/dL (0.55-1.3)
[2023-08-17 13:12] LABS: BILIRUBIN,TOTAL 0.4 mg/dL (0.2-1); TOT PROT 6.2 g/dl (6.4-8.2)
[2023-08-17] MEDS: SODIUM HYPOCHLORITE 0.5% 473 ML- BULK BOTTLE TP SCH ×2 (14:53→22:48)
[2023-08-17] MEDS: oxyCODONE HCL 5 MG TABLET PO PRN ×2 (17:08→20:48)
[2023-08-17] MEDS: INSULIN (LEVEMIR) 100 UNITS/ML UNITS SQ SCH (23:09)
[2023-08-18] MEDS: PIPERACILLIN/TAZOB 3.375 GM 3.375 GM in DEXTROSE 5%-WATER - 50 ML IVPB SCH ×3 (01:54→17:19)
[2023-08-18] MEDS: INSULIN (NOVOLOG) ASPART 100 UNITS/ML 10ML VIAL SQ SCH ×3 (06:09→17:14)
[2023-08-18] MEDS: INSULIN SLIDING SCALE (NOVOLOG) 1 VIAL SQ SCH ×4 (06:09→22:24)
[2023-08-18] MEDS: INSULIN (LEVEMIR) 100 UNITS/ML UNITS SQ SCH ×2 (06:10→22:24)
[2023-08-18 09:15] LABS: BASO % 0.3 % (0-2.0); EOS % 0.8 % (0-4.5); HEMATOCRIT 37.4 % (35.4-49); LYMPH % 17.8 % (8-40); MCH 28.5 pg (25.7-33.7); MCHC 32.1 g/dl (32.0-35.9); MEAN CELL VOLUME 88.6 fl (80-96); MEAN PLT VOLUME 9.9 fl (7.5-11.1); MONO % 6.2 % (3.8-10.2); NEUT % 74.9 % (42.8-82.8); PLATELET COUNT 386 10^3/uL (134-434); RBC 4.22 M/mm3 (4.00-5.60); RDW 13.7 % (11.9-15.9); WHITE BLOOD COUNT 11.8 K/mm3 (4.0-10.0)
[2023-08-18 09:38] LABS: POTASSIUM 4.1 mmol/L (3.5-5.1)
[2023-08-18 09:40] LABS: CALCIUM 8.6 mg/dL (8.5-10.1)
[2023-08-18 09:41] LABS: ALBUMIN 2.4 g/dl (3.4-5.0); BLOOD UREA NITROGEN 14.1 mg/dL (7-18); MAGNESIUM 1.9 mg/dL (1.8-2.4)
[2023-08-18 09:44] LABS: CREATININE 0.6 mg/dL (0.55-1.3)
[2023-08-18 09:45] LABS: BILIRUBIN,TOTAL 0.3 mg/dL (0.2-1); TOT PROT 6.5 g/dl (6.4-8.2)
[2023-08-18] MEDS: LACTATED RINGERS SOLUTION 1,000 ML IV SCH ×2 (11:18→18:26)
[2023-08-18] MEDS: oxyCODONE HCL 5 MG TABLET PO PRN ×2 (11:20→21:46)
[2023-08-18] MEDS: ENOXAPARIN NA (PORCINE) 40 MG/0.4 ML DISP.SYRIN SQ SCH (11:22)
[2023-08-18] MEDS: LACTOBACILLUS ACIDOPHILUS 1 TABLET PO SCH (11:22)
[2023-08-18] MEDS: LISINOPRIL 10 MG TABLET PO SCH (11:22)
[2023-08-18] MEDS: SODIUM HYPOCHLORITE 0.5% 473 ML- BULK BOTTLE TP SCH ×2 (11:23→23:12)
[2023-08-18] MEDS: DAPTOMYCIN 800 MG in SODIUM CHLORIDE 100 ML IVPB SCH (13:28)
[2023-08-19] MEDS: PIPERACILLIN/TAZOB 3.375 GM 3.375 GM in DEXTROSE 5%-WATER - 50 ML IVPB SCH ×3 (02:12→17:22)
[2023-08-19] MEDS: INSULIN (NOVOLOG) ASPART 100 UNITS/ML 10ML VIAL SQ SCH ×3 (06:13→16:42)
[2023-08-19] MEDS: INSULIN (LEVEMIR) 100 UNITS/ML UNITS SQ SCH ×2 (06:13→22:12)
[2023-08-19] MEDS: INSULIN SLIDING SCALE (NOVOLOG) 1 VIAL SQ SCH ×4 (06:14→22:15)
[2023-08-19 09:04] LABS: BASO % 0.5 % (0-2.0); EOS % 0.7 % (0-4.5); HEMATOCRIT 37.3 % (35.4-49); HEMOGLOBIN 12.3 GM/dL (11.7-16.9); LYMPH % 18.9 % (8-40); MCH 29.1 pg (25.7-33.7); MCHC 32.9 g/dl (32.0-35.9); MEAN CELL VOLUME 88.5 fl (80-96); MEAN PLT VOLUME 10.1 fl (7.5-11.1); MONO % 7.1 % (3.8-10.2); NEUT % 72.8 % (42.8-82.8); PLATELET COUNT 381 10^3/uL (134-434); RBC 4.22 M/mm3 (4.00-5.60); WHITE BLOOD COUNT 11.1 K/mm3 (4.0-10.0)
[2023-08-19 09:27] LABS: POTASSIUM 4.3 mmol/L (3.5-5.1)
[2023-08-19] MEDS: LACTATED RINGERS SOLUTION 1,000 ML IV SCH ×2 (09:29→17:22)
[2023-08-19] MEDS: LACTOBACILLUS ACIDOPHILUS 1 TABLET PO SCH (09:30)
[2023-08-19] MEDS: ENOXAPARIN NA (PORCINE) 40 MG/0.4 ML DISP.SYRIN SQ SCH (09:30)
[2023-08-19] MEDS: LISINOPRIL 10 MG TABLET PO SCH (09:30)
[2023-08-19] MEDS: DAPTOMYCIN 800 MG in SODIUM CHLORIDE 100 ML IVPB SCH (09:30)
[2023-08-19 09:33] LABS: CALCIUM 8.6 mg/dL (8.5-10.1)
[2023-08-19 09:34] LABS: ALBUMIN 2.6 g/dl (3.4-5.0); BLOOD UREA NITROGEN 12.7 mg/dL (7-18)
[2023-08-19 09:35] LABS: CREATININE 0.7 mg/dL (0.55-1.3)
[2023-08-19 09:37] LABS: TOT PROT 6.8 g/dl (6.4-8.2)
[2023-08-19 09:40] LABS: BILIRUBIN,TOTAL 0.5 mg/dL (0.2-1)
[2023-08-19] MEDS: oxyCODONE HCL 5 MG TABLET PO PRN ×2 (13:44→22:14)
[2023-08-19] MEDS: SODIUM HYPOCHLORITE 0.5% 473 ML- BULK BOTTLE TP SCH ×2 (14:01→22:12)
[2023-08-19] MEDS: POLYETHYLENE GLYCOL (HEALTHYLAX) 3350 17 GM PACKET PO SCH (17:22)
[2023-08-20] MEDS: PIPERACILLIN/TAZOB 3.375 GM 3.375 GM in DEXTROSE 5%-WATER - 50 ML IVPB SCH ×3 (02:47→17:44)
[2023-08-20] MEDS: INSULIN (LEVEMIR) 100 UNITS/ML UNITS SQ SCH ×2 (06:04→22:04)
[2023-08-20] MEDS: INSULIN (NOVOLOG) ASPART 100 UNITS/ML 10ML VIAL SQ SCH ×3 (06:05→17:36)
[2023-08-20] MEDS: INSULIN SLIDING SCALE (NOVOLOG) 1 VIAL SQ SCH ×4 (06:05→22:05)
[2023-08-20 09:17] LABS: BASO % 0.5 % (0-2.0); EOS % 0.8 % (0-4.5); HEMATOCRIT 37.3 % (35.4-49); HEMOGLOBIN 12.6 GM/dL (11.7-16.9); LYMPH % 20.8 % (8-40); MCH 29.5 pg (25.7-33.7); MCHC 33.7 g/dl (32.0-35.9); MEAN CELL VOLUME 87.6 fl (80-96); MEAN PLT VOLUME 10.2 fl (7.5-11.1); MONO % 6.1 % (3.8-10.2); NEUT % 71.8 % (42.8-82.8); PLATELET COUNT 371 10^3/uL (134-434); RBC 4.26 M/mm3 (4.00-5.60); RDW 13.5 % (11.9-15.9); WHITE BLOOD COUNT 10.5 K/mm3 (4.0-10.0)
[2023-08-20 09:21] VITALS: RESP 18
[2023-08-20 09:26] LABS: POTASSIUM 4.2 mmol/L (3.5-5.1)
[2023-08-20 09:28] LABS: CALCIUM 8.7 mg/dL (8.5-10.1)
[2023-08-20 09:29] LABS: ALBUMIN 2.6 g/dl (3.4-5.0); BLOOD UREA NITROGEN 13.2 mg/dL (7-18)
[2023-08-20 09:32] LABS: CREATININE 0.7 mg/dL (0.55-1.3)
[2023-08-20 09:34] LABS: BILIRUBIN,TOTAL 0.3 mg/dL (0.2-1); TOT PROT 6.7 g/dl (6.4-8.2)
[2023-08-20] MEDS: LACTOBACILLUS ACIDOPHILUS 1 TABLET PO SCH (10:09)
[2023-08-20] MEDS: LACTATED RINGERS SOLUTION 1,000 ML IV SCH (10:09)
[2023-08-20] MEDS: ENOXAPARIN NA (PORCINE) 40 MG/0.4 ML DISP.SYRIN SQ SCH (10:09)
[2023-08-20] MEDS: POLYETHYLENE GLYCOL (HEALTHYLAX) 3350 17 GM PACKET PO SCH (10:10)
[2023-08-20] MEDS: LISINOPRIL 10 MG TABLET PO SCH (10:10)
[2023-08-20] MEDS: SODIUM HYPOCHLORITE 0.5% 473 ML- BULK BOTTLE TP SCH ×2 (10:12→22:04)
[2023-08-20] MEDS: DAPTOMYCIN 800 MG in SODIUM CHLORIDE 100 ML IVPB SCH (12:49)
[2023-08-20] MEDS: CLOTRIMAZOLE/BETAMET DIPROP 15 GM TUBE TP SCH ×2 (17:43→22:05)
[2023-08-21] MEDS: PIPERACILLIN/TAZOB 3.375 GM 3.375 GM in DEXTROSE 5%-WATER - 50 ML IVPB SCH ×3 (02:50→17:56)
[2023-08-21] MEDS: INSULIN SLIDING SCALE (NOVOLOG) 1 VIAL SQ SCH ×4 (06:37→21:34)
[2023-08-21] MEDS: INSULIN (LEVEMIR) 100 UNITS/ML UNITS SQ SCH ×2 (06:38→21:34)
[2023-08-21] MEDS: INSULIN (NOVOLOG) ASPART 100 UNITS/ML 10ML VIAL SQ SCH ×3 (06:38→16:53)
[2023-08-21 08:26] LABS: BASO % 0.6 % (0-2.0); EOS % 0.7 % (0-4.5); HEMOGLOBIN 12.5 GM/dL (11.7-16.9); LYMPH % 21.2 % (8-40); MCH 29.8 pg (25.7-33.7); MCHC 33.7 g/dl (32.0-35.9); MEAN CELL VOLUME 88.6 fl (80-96); MEAN PLT VOLUME 10.4 fl (7.5-11.1); NEUT % 71.5 % (42.8-82.8); PLATELET COUNT 325 10^3/uL (134-434); RBC 4.18 M/mm3 (4.00-5.60); RDW 13.9 % (11.9-15.9); WHITE BLOOD COUNT 10.2 K/mm3 (4.0-10.0)
[2023-08-21] MEDS: LACTATED RINGERS SOLUTION 1,000 ML IV SCH (09:24)
[2023-08-21 09:28] LABS: ALBUMIN 2.6 g/dl (3.4-5.0); BILIRUBIN,TOTAL 0.5 mg/dL (0.2-1); BLOOD UREA NITROGEN 13.2 mg/dL (7-18); CALCIUM 8.7 mg/dL (8.5-10.1); CREATININE 0.7 mg/dL (0.55-1.3); POTASSIUM 4.2 mmol/L (3.5-5.1); TOT PROT 6.6 g/dl (6.4-8.2)
[2023-08-21] MEDS: LACTOBACILLUS ACIDOPHILUS 1 TABLET PO SCH (09:29)
[2023-08-21] MEDS: LISINOPRIL 10 MG TABLET PO SCH (09:29)
[2023-08-21] MEDS: ENOXAPARIN NA (PORCINE) 40 MG/0.4 ML DISP.SYRIN SQ SCH (09:30)
[2023-08-21] MEDS: POLYETHYLENE GLYCOL (HEALTHYLAX) 3350 17 GM PACKET PO SCH (09:30)
[2023-08-21] MEDS: CLOTRIMAZOLE/BETAMET DIPROP 15 GM TUBE TP SCH ×2 (09:31→21:34)
[2023-08-21] MEDS: SODIUM HYPOCHLORITE 0.5% 473 ML- BULK BOTTLE TP SCH ×2 (09:31→21:33)
[2023-08-21] MEDS: DAPTOMYCIN 800 MG in SODIUM CHLORIDE 100 ML IVPB SCH (10:35)
[2023-08-22] MEDS: PIPERACILLIN/TAZOB 3.375 GM 3.375 GM in DEXTROSE 5%-WATER - 50 ML IVPB SCH ×2 (02:24→12:50)
[2023-08-22] MEDS: INSULIN (LEVEMIR) 100 UNITS/ML UNITS SQ SCH (06:25)
[2023-08-22] MEDS: INSULIN SLIDING SCALE (NOVOLOG) 1 VIAL SQ SCH ×4 (06:26→17:22)
[2023-08-22] MEDS: INSULIN (NOVOLOG) ASPART 100 UNITS/ML 10ML VIAL SQ SCH ×3 (08:05→17:21)
[2023-08-22] MEDS: POLYETHYLENE GLYCOL (HEALTHYLAX) 3350 17 GM PACKET PO SCH (10:22)
[2023-08-22] MEDS: LACTOBACILLUS ACIDOPHILUS 1 TABLET PO SCH (10:22)
[2023-08-22] MEDS: LISINOPRIL 10 MG TABLET PO SCH (10:23)
[2023-08-22] MEDS: CLOTRIMAZOLE/BETAMET DIPROP 15 GM TUBE TP SCH (10:26)
[2023-08-22] MEDS: SODIUM HYPOCHLORITE 0.5% 473 ML- BULK BOTTLE TP SCH (10:28)
[2023-08-22 10:54] LABS: BASO % 0.6 % (0-2.0); EOS % 0.3 % (0-4.5); HEMOGLOBIN 12.6 GM/dL (11.7-16.9); LYMPH % 16.6 % (8-40); MCH 28.8 pg (25.7-33.7); MCHC 32.3 g/dl (32.0-35.9); MEAN CELL VOLUME 89.1 fl (80-96); MEAN PLT VOLUME 10.8 fl (7.5-11.1); MONO % 5.2 % (3.8-10.2); NEUT % 77.3 % (42.8-82.8); PLATELET COUNT 300 10^3/uL (134-434); RBC 4.38 M/mm3 (4.00-5.60); RDW 13.9 % (11.9-15.9); WHITE BLOOD COUNT 10.2 K/mm3 (4.0-10.0)
[2023-08-22 11:19] LABS: POTASSIUM 4.1 mmol/L (3.5-5.1)
[2023-08-22 11:21] LABS: ALBUMIN 2.8 g/dl (3.4-5.0); BLOOD UREA NITROGEN 16.8 mg/dL (7-18); CALCIUM 8.8 mg/dL (8.5-10.1)
[2023-08-22 11:24] LABS: CREATININE 0.6 mg/dL (0.55-1.3)
[2023-08-22 11:26] LABS: BILIRUBIN,TOTAL 0.4 mg/dL (0.2-1); TOT PROT 6.8 g/dl (6.4-8.2)
[2023-08-22] MEDS: LACTATED RINGERS SOLUTION 1,000 ML IV SCH (12:49)
[2023-08-22] MEDS: ENOXAPARIN NA (PORCINE) 40 MG/0.4 ML DISP.SYRIN SQ SCH (12:49)
[2023-08-22] MEDS: DAPTOMYCIN 800 MG in SODIUM CHLORIDE 100 ML IVPB SCH (12:50)
[2023-08-22 15:28] VITALS: BP 113/65; PULSE 66; TEMP 97.9
[2023-08-22] MEDS ORDERED: AMOX TR/POT CLAV 875MG/125MG TABLETS (FP) PO SCH (17:30)
== END 2023-08-22 18:11 | disposition home health service (06) | DRG 854 ==
LOC: JER 03:17 → JERBED 10:34 → J5S 14:33
PROVIDERS: ADMIT Internal Medicine
PROC: 0D9P0ZZ Drainage of Rectum, Open Approach (ICD-10-PCS; principal; 2023-08-07 12:30)
PROC: 0JBB0ZZ Excision of Perineum Subcutaneous Tissue and Fascia, Open Approach (ICD-10-PCS; 2023-08-11)
PROC: 0V950ZZ Drainage of Scrotum, Open Approach (ICD-10-PCS; 2023-08-11)
PROC: 3E10X8Z Irrigation of Skin and Mucous Membranes using Irrigating Substance (ICD-10-PCS; 2023-08-17)
DX: A41.9 Sepsis, unspecified organism (principal); E87.1 Hypo-osmolality and hyponatremia; K61.1 Rectal abscess; L02.31 Cutaneous abscess of buttock; L02.215 Cutaneous abscess of perineum; E11.65 Type 2 diabetes mellitus with hyperglycemia; I10 Essential (primary) hypertension; N49.2 Inflammatory disorders of scrotum; N49.3 Fournier gangrene; E83.42 Hypomagnesemia; F17.210 Nicotine dependence, cigarettes, uncomplicated
CPT/HCPCS: 36415; 74177-TC; 76870-TC; 80048; 80053; 81003; 82550; 82962; 83036; 83735; 84100; 85025; 85027; 85610; 85730; 86850; 86900; 86901; 87040; 87070; 87075; 87076; 87077; 87086; 87186; 87205; 87635; 88304-TC; 93005; 93010; 94760; 97116-GP; 97161-GP; 99285-25; G0480; J0878; Q9967

== ENCOUNTER 2024-08-22 14:27 | Inpatient (IN) | payer OTHER ==
[2024-08-22 14:54] VITALS: BMI 28.1
[2024-08-22] MEDS ORDERED: KETOROLAC TROMETHAMINE 30 MG/1 ML VIAL ONE (16:35)
[2024-08-22] MEDS ORDERED: ONDANSETRON 4 MG/2 ML VIAL ONE (16:35)
[2024-08-22] MEDS ORDERED: ACETAMINOPHEN 500 MG TABLET (FP) ONE (16:35)
[2024-08-22] MEDS: SODIUM CHLORIDE 0.9% 500 ML INFUS.BAG IV ONE ×2 (17:12→18:22)
[2024-08-22] MEDS: ACETAMINOPHEN 500 MG TABLET (FP) PO ONE (17:12)
[2024-08-22] MEDS: ONDANSETRON 4 MG/2 ML VIAL IVPUSH ONE (17:12)
[2024-08-22] MEDS: KETOROLAC TROMETHAMINE 30 MG/1 ML VIAL IVPUSH ONE (17:12)
[2024-08-22 17:16] LABS: HEMATOCRIT 46.3 % (35.4-49); HEMOGLOBIN 15.2 GM/dL (11.7-16.9); MCH 29.7 pg (25.7-33.7); MCHC 32.9 g/dl (32.0-35.9); MEAN CELL VOLUME 90.2 fl (80-96); MEAN PLT VOLUME 11.7 fl (7.5-11.1); PLATELET COUNT 124 10^3/uL (134-434); RBC 5.13 M/mm3 (4.00-5.60); RDW 13.9 % (11.9-15.9); WHITE BLOOD COUNT 28.6 K/mm3 (4.0-10.0)
[2024-08-22 17:21] LABS: INR 1.29 (0.83-1.09); PROTHROMBIN TIME (PATIENT) 14.5 SEC (9.7-13.0)
[2024-08-22 17:35] LABS: POTASSIUM 3.8 mmol/L (3.5-5.1)
[2024-08-22 17:37] LABS: BLOOD UREA NITROGEN 14.2 mg/dL (7-18); CALCIUM 9.4 mg/dL (8.5-10.1)
[2024-08-22 17:38] LABS: ALBUMIN 3.6 g/dl (3.4-5.0)
[2024-08-22 17:40] LABS: CREATININE 0.8 mg/dL (0.55-1.3)
[2024-08-22 17:42] LABS: BILIRUBIN,TOTAL 0.9 mg/dL (0.2-1); TOT PROT 7.5 g/dl (6.4-8.2)
[2024-08-22 17:44] LABS: ANISOCYTOSIS 1+; MACROCYTOSIS 0
[2024-08-22 17:45] LABS: PLATELET ESTIMATE DECREASED
[2024-08-22] MEDS: PIPERACILLIN/TAZOB 3.375 GM 3.375 GM in DEXTROSE 5%-WATER - 50 ML IVPB ONE (18:10)
[2024-08-22] MEDS ORDERED: PIPERACILLIN/TAZOB 3.375 GM 3.375 GM/50 ML BAG IVPB ONE (18:11)
[2024-08-22 18:31] LABS: HIV INTERPRETATION NEGATIVE (NEGATIVE)
[2024-08-22 18:40] LABS: PH,URINE 5.5 (5.0-8.0); URINE APPEARANCE CLEAR; URINE BILIRUBIN NEGATIVE (NEGATIVE); URINE COLOR YELLOW; URINE KETONE 80 (NEGATIVE); URINE LEUK ESTERASE NEGATIVE (NEGATIVE); URINE NITRITE NEGATIVE (NEGATIVE); URINE PROTEIN NEGATIVE (NEGATIVE); URINE UROBILINOGEN 0.2 mg/dL (0.2-1.0)
[2024-08-22] MEDS ORDERED: MORPHINE SULFATE 2 MG/ML SYRINGE ONE (20:07)
[2024-08-22] MEDS: morphine CARPU-JECT 2 MG/1 ML DISP.SYRIN IVPUSH ONE (20:13)
[2024-08-22] MEDS: VANCOMYCIN 1,000 MG in DEXTROSE 5%-WATER - 250 ML IVPB ONE (21:30)
[2024-08-22] MEDS ORDERED: INSULIN ASPART SLIDING SCALE (NOVOLOG) 1 VIAL SQ SCH (22:14)
[2024-08-22] MEDS ORDERED: VANCOMYCIN 1 GM PREMIX (F) 1 GM/200 ML BAG ONE (22:27)
[2024-08-22] MEDS: INSULIN ASPART SLIDING SCALE (NOVOLOG) 1 VIAL SQ SCH (23:57)
[2024-08-23] MEDS: PIPERACILLIN/TAZOB 3.375 GM 3.375 GM in DEXTROSE 5%-WATER - 50 ML IVPB SCH ×3 (02:56→13:12)
[2024-08-23] MEDS: SODIUM CHLORIDE 1,000 ML IV SCH ×2 (02:57→13:13)
[2024-08-23] MEDS: ACETAMINOPHEN 1000 MG/100 ML BAG IVPB ONE (03:54)
[2024-08-23] MEDS ORDERED: BUPIVACAINE HCL/PF 0.25% (2.5MG/ML) 10 ML VIAL ONE (07:45)
[2024-08-23] MEDS ORDERED: BUPIVACAINE HCL/PF 0.5% (5MG/ML) 10 ML VIAL ONE (07:45)
[2024-08-23] MEDS ORDERED: LIDOCAINE 1%/EPI 1:100000 (20 ML MULTI DOSE VIAL) ONE (07:45)
[2024-08-23] MEDS ORDERED: LIDOCAINE HCL 1%, 10 MG/ML (20ML VIAL) ONE (07:45)
[2024-08-23] MEDS ORDERED: ONDANSETRON 4 MG/2 ML VIAL IVPUSH PRN ×2 (08:21→09:53)
[2024-08-23] MEDS ORDERED: oxyCODONE HCL 5 MG TABLET PO PRN ×6 (08:21→16:56)
[2024-08-23] MEDS ORDERED: PROPOFOL 20 ML ONE (08:22)
[2024-08-23] MEDS ORDERED: MIDAZOLAM HCL 2 MG/2 ML SINGLE DOSE VIAL ONE (08:23)
[2024-08-23] MEDS ORDERED: ONDANSETRON 4 MG/2 ML VIAL ONE (08:23)
[2024-08-23] MEDS ORDERED: LIDOCAINE HCL/PF 2% SDV 5ML VIAL ONE (08:23)
[2024-08-23] MEDS ORDERED: SEVOFLURANE 250 ML BTL ONE (08:25)
[2024-08-23] MEDS: PIPERACILLIN/TAZOBACTAM 3.375 GM VIAL IVPB ONE ×2 (08:39→08:56)
[2024-08-23] MEDS ORDERED: KETOROLAC TROMETHAMINE 30 MG/1 ML VIAL ONE (08:46)
[2024-08-23] MEDS ORDERED: PIPERACILLIN/TAZOBACTAM 3.375 GM VIAL IVPB ONE (08:53)
[2024-08-23 09:05] LABS: HEMATOCRIT 41.9 % (35.4-49); MCHC 33.5 g/dl (32.0-35.9); MEAN CELL VOLUME 89.6 fl (80-96); MEAN PLT VOLUME 11.6 fl (7.5-11.1); PLATELET COUNT 111 10^3/uL (134-434); RBC 4.67 M/mm3 (4.00-5.60); RDW 13.8 % (11.9-15.9); WHITE BLOOD COUNT 24.4 K/mm3 (4.0-10.0)
[2024-08-23] MEDS: HYDROGEN PEROXIDE 473 ML PO ONE (09:06)
[2024-08-23] MEDS ORDERED: ACETAMINOPHEN INJECTION 100 ML ONE (09:40)
[2024-08-23] MEDS: ACETAMINOPHEN 1000 MG/100 ML BAG IVPB PRN (09:45)
[2024-08-23] MEDS: LACTATED RINGERS SOLUTION 1,000 ML IV SCH ×2 (09:46→10:12)
[2024-08-23 09:51] LABS: POTASSIUM 3.7 mmol/L (3.5-5.1)
[2024-08-23] MEDS ORDERED: VANCOMYCIN/WATER 1250 MG 1,250 MG/250 ML BAG IVPB SCH ×2 (10:00)
[2024-08-23] MEDS ORDERED: ACETAMINOPHEN 1000 MG/100 ML BAG IVPB PRN (10:00)
[2024-08-23] MEDS ORDERED: LOSARTAN 50MG/HCTZ 12.5MG 1 TAB PO SCH (10:00)
[2024-08-23 10:05] LABS: ANISOCYTOSIS 0; MACROCYTOSIS 0
[2024-08-23 10:07] LABS: ALBUMIN 3.1 g/dl (3.4-5.0); BLOOD UREA NITROGEN 14.8 mg/dL (7-18); CALCIUM 8.6 mg/dL (8.5-10.1); PLATELET ESTIMATE SLT DECREASE
[2024-08-23 10:10] LABS: CREATININE 0.6 mg/dL (0.55-1.3)
[2024-08-23 10:11] LABS: PHOSPHOROUS 3.1 mg/dL (2.5-4.9)
[2024-08-23 10:12] LABS: TOT PROT 6.5 g/dl (6.4-8.2)
[2024-08-23] MEDS: VANCOMYCIN/WATER 1250 MG 1,250 MG/250 ML BAG IVPB SCH ×2 (10:18→13:13)
[2024-08-23 10:28] LABS: BILIRUBIN,TOTAL 1.1 mg/dL (0.2-1)
[2024-08-23] MEDS: LOSARTAN 50MG/HCTZ 12.5MG 1 TAB PO SCH (11:35)
[2024-08-23] MEDS ORDERED: PIPERACILLIN/TAZOB 3.375 GM 3.375 GM in DEXTROSE 5%-WATER - 50 ML IVPB SCH (12:00)
[2024-08-23] MEDS: INSULIN ASPART SLIDING SCALE (NOVOLOG) 1 VIAL SQ SCH (17:22)
[2024-08-23] MEDS: PIPERACILLIN/TAZOB 4.5 GM 4.5 GM/100 ML BAG IVPB SCH (18:17)
[2024-08-23] MEDS: VANCOMYCIN/WATER FOR INJ (PEG) 1,000 MG/200 ML BAG IVPB SCH (21:06)
[2024-08-24] MEDS: ACETAMINOPHEN 1000 MG/100 ML BAG IVPB PRN (05:53)
[2024-08-24 09:06] LABS: BASO % 0.3 % (0-2.0); EOS % 0.1 % (0-4.5); HEMATOCRIT 41.2 % (35.4-49); HEMOGLOBIN 13.4 GM/dL (11.7-16.9); LYMPH % 8.9 % (8-40); MCH 29.6 pg (25.7-33.7); MCHC 32.6 g/dl (32.0-35.9); MEAN CELL VOLUME 90.9 fl (80-96); MEAN PLT VOLUME 11.7 fl (7.5-11.1); MONO % 4.7 % (3.8-10.2); PLATELET COUNT 123 10^3/uL (134-434); RBC 4.54 M/mm3 (4.00-5.60); RDW 13.6 % (11.9-15.9); WHITE BLOOD COUNT 19.4 K/mm3 (4.0-10.0)
[2024-08-24 09:09] LABS: POTASSIUM 3.6 mmol/L (3.5-5.1)
[2024-08-24 09:16] LABS: ALBUMIN 2.5 g/dl (3.4-5.0); BLOOD UREA NITROGEN 16.1 mg/dL (7-18); CALCIUM 8.1 mg/dL (8.5-10.1)
[2024-08-24 09:20] LABS: CREATININE 0.4 mg/dL (0.55-1.3)
[2024-08-24 09:21] LABS: BILIRUBIN,TOTAL 0.5 mg/dL (0.2-1); TOT PROT 5.7 g/dl (6.4-8.2)
[2024-08-24] MEDS ORDERED: oxyCODONE HCL 5 MG TABLET PO PRN (15:23)
[2024-08-25 09:04] LABS: BASO % 0.3 % (0-2.0); EOS % 0.8 % (0-4.5); HEMATOCRIT 42.5 % (35.4-49); LYMPH % 15.3 % (8-40); MCH 29.5 pg (25.7-33.7); MEAN CELL VOLUME 89.2 fl (80-96); MEAN PLT VOLUME 11.2 fl (7.5-11.1); MONO % 6.2 % (3.8-10.2); NEUT % 77.4 % (42.8-82.8); PLATELET COUNT 154 10^3/uL (134-434); RBC 4.76 M/mm3 (4.00-5.60); RDW 13.3 % (11.9-15.9); WHITE BLOOD COUNT 12.8 K/mm3 (4.0-10.0)
[2024-08-25 09:35] LABS: CALCIUM 8.8 mg/dL (8.5-10.1); POTASSIUM 3.6 mmol/L (3.5-5.1)
[2024-08-25 09:36] LABS: ALBUMIN 2.6 g/dl (3.4-5.0); BLOOD UREA NITROGEN 12.7 mg/dL (7-18)
[2024-08-25 09:39] LABS: CREATININE 0.5 mg/dL (0.55-1.3)
[2024-08-25 09:40] LABS: BILIRUBIN,TOTAL 0.4 mg/dL (0.2-1)
[2024-08-25] MEDS ORDERED: INSULIN ASPART SLIDING SCALE (NOVOLOG) 1 VIAL SQ ONE (11:46)
[2024-08-26 09:30] LABS: HEMATOCRIT 41.5 % (35.4-49); HEMOGLOBIN 14.2 GM/dL (11.7-16.9); MCH 30.2 pg (25.7-33.7); MCHC 34.2 g/dl (32.0-35.9); MEAN CELL VOLUME 88.4 fl (80-96); MEAN PLT VOLUME 11.3 fl (7.5-11.1); PLATELET COUNT 169 10^3/uL (134-434); RBC 4.69 M/mm3 (4.00-5.60); RDW 13.7 % (11.9-15.9); WHITE BLOOD COUNT 9.7 K/mm3 (4.0-10.0)
[2024-08-26 09:46] LABS: POTASSIUM 3.8 mmol/L (3.5-5.1)
[2024-08-26 09:47] LABS: CALCIUM 8.7 mg/dL (8.5-10.1)
[2024-08-26 09:48] LABS: BLOOD UREA NITROGEN 15.2 mg/dL (7-18)
[2024-08-26 09:51] LABS: CREATININE 0.6 mg/dL (0.55-1.3)
[2024-08-26 09:54] VITALS: RESP 18
[2024-08-26 14:47] VITALS: BP 143/79; PULSE 64; TEMP 99.1
== END 2024-08-26 17:01 | disposition home or self-care (01) | DRG 854 ==
LOC: JER 14:27 → JERBED 21:01 → J8W 23:06
PROVIDERS: ADMIT Student in an Organized Health Care Education/Training Program; ATTEND Internal Medicine
PROC: 0D9Q00Z Drainage of Anus with Drainage Device, Open Approach (ICD-10-PCS; principal; 2024-08-23 08:30)
DX: A41.9 Sepsis, unspecified organism (principal); K61.1 Rectal abscess; I10 Essential (primary) hypertension; E11.9 Type 2 diabetes mellitus without complications; E78.5 Hyperlipidemia, unspecified; Z79.84 Long term (current) use of oral hypoglycemic drugs
CPT/HCPCS: 0241U-QW; 36415; 72193-TC; 80048; 80053; 81003; 82962; 83036; 83605; 83735; 84100; 85025; 85027; 85610; 86803; 86850; 86900; 86901; 87040; 87070; 87076; 87086; 87186; 87205; 87389; 94760; 99285-25; G0480; J0131; Q9967